=== PATIENT | female | born 1970 | race Caucasian/White ===

== ENCOUNTER → 2019-05-08 14:54 | Outpatient (BNVA) | payer OTHER, MEDICAID, SELFPAY | PROVIDERS: Family Provider Nurse Practitioner Family; PCP Nurse Practitioner Family; Visit Provider Nurse Practitioner Family | DX: I10 Essential (primary) hypertension (principal); Z96.652 Presence of left artificial knee joint; M19.90 Unspecified osteoarthritis, unspecified site; M48.00 Spinal stenosis, site unspecified | CPT/HCPCS: 80053; 80061; 85025 ==

== ENCOUNTER 2019-05-11 06:00 | Outpatient (RCR) | payer OTHER, MEDICAID, SELFPAY | END 2019-05-26 23:59 | disposition home or self-care (01) | LOC: APT 06:00 | PROVIDERS: Family Provider Nurse Practitioner Family; PCP Nurse Practitioner Family; Referring Provider Specialist; Visit Provider Specialist | DX: Z47.1 Aftercare following joint replacement surgery (principal); Z96.652 Presence of left artificial knee joint | CPT/HCPCS: 97110; 97163 ==

== ENCOUNTER 2019-05-27 06:00 | Outpatient (RCR) | payer OTHER, MEDICAID, SELFPAY | END 2019-06-24 23:59 | disposition home or self-care (01) | LOC: APT 06:00 | PROVIDERS: Family Provider Nurse Practitioner Family; PCP Nurse Practitioner Family; Referring Provider Specialist; Visit Provider Specialist | DX: Z47.1 Aftercare following joint replacement surgery (principal); Z96.652 Presence of left artificial knee joint | CPT/HCPCS: 97110 ==

== ENCOUNTER → 2019-06-28 10:46 | Outpatient (BNVA) | payer OTHER, MEDICAID, SELFPAY | PROVIDERS: Family Provider Nurse Practitioner Family; PCP Nurse Practitioner Family; Visit Provider Specialist | DX: M25.562 Pain in left knee (principal); Z96.652 Presence of left artificial knee joint | CPT/HCPCS: 73562 ==

== ENCOUNTER 2019-07-04 06:00 | Outpatient (RCR) | payer OTHER, MEDICAID, SELFPAY | END 2019-07-25 23:59 | disposition home or self-care (01) | LOC: APT 06:00 | PROVIDERS: Family Provider Nurse Practitioner Family; PCP Nurse Practitioner Family; Referring Provider Specialist; Visit Provider Specialist | DX: Z47.1 Aftercare following joint replacement surgery (principal); Z96.652 Presence of left artificial knee joint | CPT/HCPCS: 97110; 97163; 97530 ==

== ENCOUNTER → 2019-07-19 13:42 | Outpatient (BNVA) | payer OTHER, MEDICAID, SELFPAY | PROVIDERS: Family Provider Nurse Practitioner Family; PCP Nurse Practitioner Family; Visit Provider Nurse Practitioner Family | DX: M25.511 Pain in right shoulder (principal) | CPT/HCPCS: 73030 ==

== ENCOUNTER 2019-07-26 06:00 | Outpatient (RCR) | payer OTHER, MEDICAID, SELFPAY | END 2019-08-24 23:59 | disposition home or self-care (01) | LOC: APT 06:00 | PROVIDERS: Family Provider Nurse Practitioner Family; PCP Nurse Practitioner Family; Referring Provider Specialist; Visit Provider Specialist | DX: Z47.1 Aftercare following joint replacement surgery (principal); Z96.652 Presence of left artificial knee joint | CPT/HCPCS: 97110 ==

== ENCOUNTER → 2019-08-23 11:46 | Outpatient (BNVA) | payer OTHER, MEDICAID, SELFPAY | PROVIDERS: Family Provider Nurse Practitioner Family; PCP Nurse Practitioner Family; Visit Provider Nurse Practitioner | DX: R05 Cough (principal) | CPT/HCPCS: 71046 ==

== ENCOUNTER 2019-08-25 13:44 | Inpatient (IN) | payer OTHER, MEDICAID, SELFPAY ==
[2019-08-25] VITALS (13 sets, daily range): BP systolic 119–151; BP diastolic 78–107; PULSE 80–108; RESP 16–25; TEMP 36.6; O2SAT 86–96; BMI 40.1
--- NOTE | 2019-08-25 14:04 | XR_ITS ---
WS: [id number] PORTABLE CHEST HISTORY: sob COMPARISON: 08/23/2019 Lungs are clear and well expanded. No pleural effusion or pneumothorax. Cardiac size: Normal. Mediastinum/Aorta: Normal mediastinum. No osseous abnormality seen. XR/XR chest 1V portable [id number] IMPRESSION: Unremarkable portable chest.
--- NOTE | 2019-08-25 14:15 | ED_ITS ---
HPI - SOB/Dyspnea General: Chief Complaint: Shortness of Breath/Dyspnea Stated Complaint: SOB, cough Time Seen by Provider: 08/25/19 14:04 Source: patient Mode of arrival: ambulatory Limitations: no limitations History of Present Illness: HPI Narrative: 49-year-old female who has a history of asthma states she has had a productive cough along with shortness of breath lasting a month. She denies any fevers. She has seen her PCP and has been prescribed albuterol with no help. She has not been on any steroids or antibiotics. She denies any worsening or improving factors. MD elicited complaint: shortness of breath and cough Pertinent past history: asthma Onset (ago): week(s) Severity: moderate Exacerbating factors: nothing Relieving factors: nothing Associated symptoms: Deny abdominal pain, chest pain, fever(s), nausea or vomiting Review of Systems Const: Denies: fever, chills, body aches or change in appetite Eyes: Denies: blurry vision or eye discomfort ENMT: Denies: throat pain or dental pain Card: Denies: chest pain Resp: Reports: shortness of breath, productive cough and wheezing GI: Denies: abdominal pain, nausea, vomiting or diarrhea : Denies: painful urination Musc: Denies: neck pain or back pain Skin/Breast: Denies: rash Neuro: Denies: headache Psych: Denies: depression Keaton/Lymph: Denies: easy bruising All/Imm: Denies: hives PFS ED PFSH: Medical History Anxiety and depression Asthma Dyslipidemia Excessive bleeding in premenopausal period GERD (gastroesophageal reflux disease) Hiatal hernia Hypertension Irritable bowel syndrome (IBS) Mixed stress and urge urinary incontinence Osteoarthritis (arthritis due to wear and tear of joints) Perimenopausal menorrhagia PTSD (post-traumatic stress disorder) Seasonal allergies Spinal stenosis Tachyarrhythmia Surgical History H/O laparoscopy (~2018) incarcerated -- [facility] History of carpal tunnel release right History of delivery x 4--1990,1996,2000,2006 History of cholecystectomy (~2015) History of dilation and curettage (~1999) History of thyroidectomy (~2009) Hemithyroidectomy--- has never been able to tolerate medication Hx of appendectomy (~1992) Hx of arthroscopic knee surgery 3 surgeries S/P ACL reconstruction (~2003) right Status post laparoscopic hernia repair (~2012) hiatal Family History Mother Hypertension Stroke Diabetes Sister Hypertension Grandmother Hypertension Cancer Paternal --Bladder, liver and brain Ovarian cancer Maternal Brother Cancer Brain tumor Diabetes Social History Smoking and tobacco status: former smoker Quit status (tobacco): has quit using tobacco Former quit date comment: Quit at age 31 Second hand smoke exposure: No Smoking risk assessment/counseling performed?: No Alcohol intake: never Desire information about alcohol rehabilitation?: No Counseling given: No Desire information about substance/drug rehabilitation?: No Counseling given: No Lives independently: No Marital status: Legally service: No History of recent travel: No Current gender identity: Female Additional social history: Well balanced diet Physical Exam Const: COMMON NORMALS: no apparent distress, oriented x3 and healthy appearing HENMT: COMMON NORMALS: normocephalic and head/scalp atraumatic HEAD & SCALP: normocephalic and atraumatic Eye: COMMON NORMALS: PERRL and EOMs intact bilaterally PUPIL: Yes PERRL Neck/C-Spine: COMMON NORMALS: full ROM and supple Chest: COMMONS NORMALS: inspection of chest normal and palpation of chest normal Resp: COMMON NORMALS: normal respiratory effort, no retractions and no use of accessory muscles AUSCULTATION: wheezes Cardio: COMMON NORMALS: regular rate, regular rhythm and no murmurs RATE: regular rate RHYTHM: regular rhythm GI: COMMON NORMALS: normal to inspection, nondistended, normoactive bowel sounds, soft to palpation, non-tender and no masses PALPATION: Yes soft Extremity: COMMON NORMALS: normal to inspection and full ROM Neuro: COMMON NORMALS: oriented x3, moves all extremities and no focal motor deficits Psych: COMMON NORMALS: mental status grossly normal, thought process normal and cooperative THOUGHT PROCESS: normal thought process Skin: COMMON NORMALS: no rashes or lesions noted and no wounds GENERAL SKIN EXAM: no rashes or lesions noted Course Vital Signs: Vital signs: Vital Signs Temperature 97.9 F 08/25/19 13:49 Pulse Rate 97 08/25/19 16:28 Respiratory Rate 18 08/25/19 16:28 Blood Pressure 139/79 08/25/19 16:17 Pulse Oximetry 92 08/25/19 16:49 MDM - SOB/Dyspnea MDM Narrative: Medical decision making narrative: Patient presents with asthma exacerbation along with cough and likely bronchitis. Patient given multiple breathing treatments here and steroids. Had patient ambulate on a pulse ox and she desaturated to 85% after her breathing treatments. Patient is not on oxygen at home and I spoke to hospitalist and will admit as she had that desaturation. Patient is required oxygen here. Patient's d-dimer is negative and no signs of pulmonary embolism. Lab Data: Labs: Lab Results 08/25/19 08/25/19 08/25/19 Range/Units 14:20 14:20 14:20 WBC 9.1 (4.0-10.0) 10^3/ uL RBC 4.46 (4.1-5.3) 10^6/u L Hgb 13.5 (11.5-15.3) g/dL Hct 41.4 (37.0-47.0) % MCV 92.8 (81-99) fL MCH 30.3 (28.0-34.0) pg MCHC 32.6 (30.0-36.0) g/dL RDW 13.2 (12.1-15.1) % Plt Count 279 (130-400) 10^3/c mm MPV 11.6 H (7.4-10.4) fL Neut % (Auto) 70.0 % Lymph % (Auto) 15.1 % [place] % (Auto) 5.6 % Eos % (Auto) 8.2 % Baso % (Auto) 0.4 % Neut # (Auto) 6.3 (1.8-7.7) 10^3/u L Lymph # (Auto) 1.4 (0.8-4.8) 10^3/u L [place] # (Auto) 0.5 (0.2-0.9) 10^3/u L Eos # (Auto) 0.7 (0.0-0.8) 10^3/u L Baso # (Auto) 0.0 (0.0-0.1) 10^3/u L Nucleated RBC % (a uto) 0 % Nucleated RBCs # 0.0 /100WBC PT 13.20 (10.5-13.3) SECO NDS INR 0.97 (0.8-1.2) D-Dimer 0.54 (0-0.59) ug/mIFE U Specimen Type Sample Site ABG pH (7.35-7.45) ABG pCO2 (35-45) mmHg ABG pO2 (80.0-100.0) mmH g ABG HCO3 (22-26) mmol/L ABG Base Excess (-2.0-2.0) mmol/ L Raji Test Hematocrit (37-47) % O2 Delivery Device O2 Liters/Min % FiO2 % Cashier Payments Received ID Sodium 139 (136-145) mmol/L Potassium 4.1 (3.5-5.1) mmol/L Chloride 100 (98-107) mmol/L Carbon Dioxide 26 (22-29) mmol/L Anion Gap 17.1 (5-19) BUN 14 (6-20) mg/dL Creatinine 0.9 (0.5-0.9) mg/dL GFR Calculation 66.8 L (90-130) mL/min Glucose 107 (65-115) mg/dL Calculated Osmolal ity 285 (285-295) mOsm/k g Calcium 9.3 (8.5-10.5) mg/dL Total Bilirubin 0.3 (0.15-1.2) mg/dL AST 17 (0-32) U/L ALT 17 (0-33) U/L Alkaline Phosphata se 92 (35-105) IU/L Troponin T Baselin e (0-10) ng/mL NT-Pro-B Natriuret Pep 34 (0-125) pg/mL Total Protein 7.2 (6.6-8.7) g/dL Albumin 4.4 (3.5-5.2) g/dL Globulin 2.8 (1.3-4.6) g/dL 08/25/19 08/25/19 Range/Units 14:20 16:51 WBC (4.0-10.0) 10^3/ uL RBC (4.1-5.3) 10^6/u L Hgb (11.5-15.3) g/dL Hct (37.0-47.0) % MCV (81-99) fL MCH (28.0-34.0) pg MCHC (30.0-36.0) g/dL RDW (12.1-15.1) % Plt Count (130-400) 10^3/c mm MPV (7.4-10.4) fL Neut % (Auto) % Lymph % (Auto) % [place] % (Auto) % Eos % (Auto) % Baso % (Auto) % Neut # (Auto) (1.8-7.7) 10^3/u L Lymph # (Auto) (0.8-4.8) 10^3/u L [place] # (Auto) (0.2-0.9) 10^3/u L Eos # (Auto) (0.0-0.8) 10^3/u L Baso # (Auto) (0.0-0.1) 10^3/u L Nucleated RBC % (a uto) % Nucleated RBCs # /100WBC PT (10.5-13.3) SECO NDS INR (0.8-1.2) D-Dimer (0-0.59) ug/mIFE U Specimen Type Arterial Sample Site Radial, right ABG pH 7.42 (7.35-7.45) ABG pCO2 37.8 (35-45) mmHg ABG pO2 64.6 L (80.0-100.0) mmH g ABG HCO3 24.7 (22-26) mmol/L ABG Base Excess 0.4 (-2.0-2.0) mmol/ L Raji Test Pos Hematocrit 43.6 (37-47) % O2 Delivery Device Nc O2 Liters/Min 2.0 % FiO2 28.0 % Cashier Payments Received ID ed Sodium (136-145) mmol/L Potassium (3.5-5.1) mmol/L Chloride (98-107) mmol/L Carbon Dioxide (22-29) mmol/L Anion Gap (5-19) BUN (6-20) mg/dL Creatinine (0.5-0.9) mg/dL GFR Calculation (90-130) mL/min Glucose (65-115) mg/dL Calculated Osmolal ity (285-295) mOsm/k g Calcium (8.5-10.5) mg/dL Total Bilirubin (0.15-1.2) mg/dL AST (0-32) U/L ALT (0-33) U/L Alkaline Phosphata se (35-105) IU/L Troponin T Baselin e 7 (0-10) ng/mL NT-Pro-B Natriuret Pep (0-125) pg/mL Total Protein (6.6-8.7) g/dL Albumin (3.5-5.2) g/dL Globulin (1.3-4.6) g/dL Imaging Data^: CXR: Radiologist's impression: [address] [place] [address] XRay Report Signed Patient: Ani Bermudez Unit #: [id number] : 1970 Age/Sex: 49 / F ADM Date: 08/25/19 Loc: ER Room/Bed: Attending Dr: Ordering Provider/Ordering MD: Dana Flores MD Date of Service: 08/25/19 Procedure(s): XR chest 1V portable [id number] Accession Number(s): [id number] Report Number: [id number] WS: [id number] PORTABLE CHEST HISTORY: sob COMPARISON: 08/23/2019 Lungs are clear and well expanded. No pleural effusion or pneumothorax. Cardiac size: Normal. Mediastinum/Aorta: Normal mediastinum. No osseous abnormality seen. XR/XR chest 1V portable [id number] IMPRESSION: Unremarkable portable chest. EKG Data^: EKG 1: Attestation: I personally reviewed and interpreted this EKG as follows: EKG Interpretation Date: 08/25/19 EKG interpretation time: 15:09 Interpretation: nsr hr [address] or t wave abnormalities qrs 81 qtc 353 Discharge Plan Discharge Patient Disposition: Admitted As Inpatient Clinical Impression: Bronchitis Asthma with exacerbation Qualifiers: Asthma severity: moderate Condition: Stable Referrals: Ruthann Clemente FNP-C [Primary Care Provider] - Tatiana Vidal MD [Physician] - 1-3 days Discharge Diet: Advance as tolerated Discharge Activity: Resume usual activity Patient Instructions: Acute Bronchitis (ED) Coding Level of Care Code 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
[2019-08-25 14:40] LABS: Basophils % 0.4 %; Eosinophils # 0.7 10^3/uL (0.0-0.8); Eosinophils % 8.2 %; Hematocrit 41.4 % (37.0-47.0); Hemoglobin 13.5 g/dL (11.5-15.3); Lymphocytes # 1.4 10^3/uL (0.8-4.8); Lymphocytes % 15.1 %; Mean Corpuscular HGB Conc 32.6 g/dL (30.0-36.0); Mean Corpuscular Hemoglobin 30.3 pg (28.0-34.0); Mean Corpuscular Volume 92.8 fL (81-99); Mean Platelet Volume 11.6 fL (7.4-10.4); Monocytes # 0.5 10^3/uL (0.2-0.9); Monocytes % 5.6 %; Neutrophils # 6.3 10^3/uL (1.8-7.7); Nucleated Red Blood Cells % 0 %; Platelet Count 279 10^3/cmm (130-400); Red Blood Count 4.46 10^6/uL (4.1-5.3); Red Cell Distribution Width 13.2 % (12.1-15.1); White Blood Count 9.1 10^3/uL (4.0-10.0)
[2019-08-25 14:48] LABS: INR 0.97 (0.8-1.2)
[2019-08-25 14:51] LABS: D Dimer 0.54 ug/mIFEU (0-0.59)
[2019-08-25 15:01] LABS: Troponin(5th) Baseline 7 ng/mL (0-10)
[2019-08-25] MEDS: ipratropium-albuterol 3 mL Neb INHALATION (15:10)
[2019-08-25 15:11] LABS: Alanine Aminotransferase 17 U/L (0-33); Albumin Level 4.4 g/dL (3.5-5.2); Alkaline Phosphatase 92 IU/L (35-105); Anion Gap 17.1 (5-19); Aspartate Amino Transferase 17 U/L (0-32); Blood Urea Nitrogen 14 mg/dL (6-20); Calcium 9.3 mg/dL (8.5-10.5); Carbon Dioxide 26 mmol/L (22-29); Chloride 100 mmol/L (98-107); Globulin 2.8 g/dL (1.3-4.6); Glomerular Filtration Rate 66.8 mL/min (90-130); Glucose 107 mg/dL (65-115); NT Pro B Type Natriuretic Pept 34 pg/mL (0-125); Osmolality Calculated 285 mOsm/kg (285-295); Potassium 4.1 mmol/L (3.5-5.1); Sodium 139 mmol/L (136-145); Total Bilirubin 0.3 mg/dL (0.15-1.2); Total Protein 7.2 g/dL (6.6-8.7)
--- NOTE | 2019-08-25 16:05 | ECG_ITS ---
Measurements Intervals [place] Rate: 90 P: 53 IL: 173 QRS: 43 QRSD: 81 T: 51 QT: 305 QTc: 375 SINUS RHYTHM NONSPECIFIC T-WAVE ABNORMALITY Compared to ECG 12/30/2018 14:15:13 No significant changes Electronically Signed On 08-26-2019 16:23:04 CDT by Hernan Cyr M.D. [id number]
[2019-08-25 17:02] LABS: ABG PCO2 37.8 mmHg (35-45); ABG PH Result 7.42 (7.35-7.45); Arterial Blood Gas Hematocrit 43.6 % (37-47); Base Excess ABG 0.4 mmol/L (-2.0-2.0); Blood Gas Allen Test Pos; Blood Gas Sample Site Radial, right; Blood Gas Sample Type Arterial; HCO3 ABG 24.7 mmol/L (22-26); Oxygen Device NC; PO2 ABG 64.6 mmHg (80.0-100.0)
[2019-08-25] MEDS: cefTRIAXone 1,000 MG in sodium chloride 0.9% (plus) 50 ML 100 MG IV (17:41)
--- NOTE | 2019-08-25 19:33 | P.HP_ITS ---
Providers/Chief Complaint Primary Care Provider: TOBI Henderson Chief Complaint: cp, sob History of Present Illness Ani Bermudez is a 49 year old female who carries diagnoses of asthma, morbid obesity came in with chief complaint of shortness of breath. Patient is stating that her symptoms started in starting of July with seasonal allergies for which she was treated with albuterol by her PCP, she has tried albuterol multiple times but her symptoms were not improving, on her second visit to PCP she was given inhaled steroids. Patient's symptoms are not improving they are getting worse mostly at night, she got diagnosed with asthma when she had hiatal hernia for which she underwent surgery. She thinks her GERD is well controlled. She has tried to limit herself in her house because of seasonal allergies, she has not been exposed to sick contacts, she lives with her son, son has not traveled outside. Patient is denying fever, chills, rigors chest pain, nausea, vomiting, dysuria wheezing or stridor. She has been having dry cough and get bronchitis almost every year. Diagnostics in ER revealed normal hemodynamics, she is afebrile, no leukocytosis or leukopenia, blood gas shows normal pH, patient is not in any active respiratory distress On ambulation she was desaturating, currently doing well on 2 L nasal cannula D-dimer not high for her age Chest x-ray is normal without any acute pathology EKG unremarkable Review of Systems Const: Reports: body aches and fatigue; Denies: fever or chills Eyes: Denies: change in vision ENMT: Reports: throat pain Card: Reports: shortness of breath when lying down; Denies: chest pain or palpitations Resp: Reports: shortness of breath and non-productive cough; Denies: wheezing or stridor GI: Denies: abdominal pain : Denies: flank pain Musc: Denies: neck pain Skin/Breast: Denies: rash Neuro: Denies: headache Psych: Reports: anxiety Endo: Denies: excessive urination Keaton/Lymph: Denies: easy bruising All/Imm: Denies: hives Medications/Allergies Home Medications Medication Instructions Recorded Confirmed Last Taken Type Knee immobilizer #1 ea 06/28/19 08/16/19 Unknown Rx amlodipine 10 mg tablet 10 mg PO DAILY 30 Days #30 tab 07/05/19 08/16/19 Unknown Rx citalopram 20 mg tablet 20 mg PO DAILY 30 Days #30 tab 07/05/19 08/16/19 Unknown Rx celecoxib 200 mg capsule 200 mg PO BID 30 Days #60 cap 07/18/19 08/16/19 Unknown Rx pravastatin 20 mg tablet 20 mg PO DAILY 30 Days #30 tab 07/18/19 08/16/19 Unknown Rx albuterol sulfate 90 mcg/actuation 2 puff INHALATION Q6H PRN #8.5 gm 08/14/19 0 08/16/19 Unknown Rx aerosol inhaler promethazine-DM 6.25 mg-15 mg/5 mL 5 ml PO Q6H #120 ml 08/14/19 08/16/19 Unknown Rx oral syrup albuterol sulfate 2.5 mg INHALATION Q4H #300 ml 08/16/19 08/16/19 Unknown Rx budesonide 0.5 mg/2 mL suspension 0.5 mg INHALATION BID #60 ml 08/16/19 08/16/19 Unknown Rx for nebulization guaifenesin 100 mg/5 mL oral liquid 400 mg PO Q6H 30 Days #2400 ml 08/23/19 08/23/19 Unknown Rx doxycycline hyclate 100 mg PO BID 10 Days #20 cap 08/25/19 Unknown Rx prednisone 50 mg PO DAILY #5 tab 08/25/19 Unknown Rx Allergies Allergy/AdvReac Type Severity Reaction Status Date / Time levothyroxine sodium Allergy Unknown unknown Verified 08/23/19 11:42 morphine Allergy Unknown itching Verified 08/23/19 11:42 ranitidine Allergy Unknown unknown Verified 08/23/19 11:42 thyroid, pork Allergy Unknown unknown Verified 08/23/19 11:42 [From [place] Thyroid] tramadol Allergy Unknown unknown Verified 08/23/19 11:42 PFSH Acute PFSH: Medical History Anxiety and depression Asthma Dyslipidemia Excessive bleeding in premenopausal period GERD (gastroesophageal reflux disease) Hiatal hernia Hypertension Irritable bowel syndrome (IBS) Mixed stress and urge urinary incontinence Osteoarthritis (arthritis due to wear and tear of joints) Perimenopausal menorrhagia PTSD (post-traumatic stress disorder) Seasonal allergies Spinal stenosis Tachyarrhythmia Surgical History H/O laparoscopy (~2017) incarcerated -- [facility] History of carpal tunnel release right History of delivery x 4--1990,1996,2000,2006 History of cholecystectomy (~2015) History of dilation and curettage (~1999) History of thyroidectomy (~2009) Hemithyroidectomy--- has never been able to tolerate medication Hx of appendectomy (~1992) Hx of arthroscopic knee surgery 3 surgeries S/P ACL reconstruction (~2003) right Status post laparoscopic hernia repair (~2012) hiatal Family History Mother Hypertension Stroke Diabetes Sister Hypertension Grandmother Hypertension Cancer Paternal --Bladder, liver and brain Ovarian cancer Maternal Brother Cancer Brain tumor Diabetes Social History Smoking and tobacco status: former smoker Quit status (tobacco): has quit using tobacco Former quit date comment: Quit at age 31 Second hand smoke exposure: No Smoking risk assessment/counseling performed?: No Alcohol intake: never Desire information about alcohol rehabilitation?: No Counseling given: No Desire information about substance/drug rehabilitation?: No Counseling given: No Lives independently: No Marital status: Legally service: No History of recent travel: No Current gender identity: Female Additional social history: Well balanced diet Vitals/I&O/Wt Last Vital Signs Temp 97.9 F 08/25/19 13:49 Pulse 97 08/25/19 16:28 Resp 18 08/25/19 16:28 BP 139/79 08/25/19 16:17 Pulse Ox 92 08/25/19 16:49 Weight last 48 hrs Weight 112.945 kg Physical Exam Narrative: EXAM NARRATIVE: Head to toe examination EOMI, PERRLA No JVD No active respiratory distress No signs of active fluid overload Supple neck Appropriate mood and affect No active wheezing or stridor, she gets bouts of cough when taking deep breaths, mild expiratory wheezing, bilateral decreased breath sounds without adventitious sounds, S1, S2 no tachycardia noted Abdomen soft, distended, obese obesity, bowel sounds present, nontender Appropriate mood and affect GCS 15 alert oriented x3 Negatives: Skin does not show any sign of ischemia gangrene or ulcer No active respiratory distress No cyanosis of lips or digits No signs of heart failure No clubbing Data : 08/25/19 14:20 08/25/19 14:20 A&P Assessment and plan (1) Bronchitis: Status: Acute (2) Asthma with exacerbation: Status: Acute Qualifiers: Asthma severity: moderate (3) Hypertension: Status: Chronic Qualifiers: Hypertension type: essential hypertension Qualified Code(s): I10 - Essential (primary) hypertension (4) Anxiety and depression: Status: Chronic Additional A&P Information Acute hypoxic respiratory failure due to severe persistent asthma symptoms She is suffering from daily symptoms with nocturnal symptoms almost every day for last 4 weeks I would use short acting beta agonist along IV systemic steroids and short acting muscarinic agonist, montelukast Azithromycin for anti-inflammatory effect and subacute bronchitis Sputum sample, check eosinophils and IgE to decide about biological agent patient is endorsing seasonal allergies, considering no active respiratory distress and compensated blood gas with upper low normal PCO2 I will admit her to medical floor, no need of magnesium sulfate at this point, At the time of discharge she might need step up therapy for severe persistent asthma exacerbation Rule out COVID Isolation contact and droplet Patient is afebrile, no leukocytosis or leukopenia, will check LDH and ferritin level, d-dimer not high for her age, PE less likely to be the cause of hypoxia, no signs of heart failure, GERD Nocturnal coughing I would start Protonix 40 mg daily, she carries history of hiatal hernia status post surgery Hypertension: Continue amlodipine 10 mg daily Morbid obesity: She will need outpatient sleep study Regular diet Full code DVT prophylaxis: Lovenox Attestations Medical Necessity Statement*: Anticipating her stay to cross more than 2 midnights needs active management for asthma exacerbation currently suffering from persistent asthma symptoms Time Spent in Patient Care: 40 Coding Level of Care Code 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
--- NOTE | 2019-08-25 20:05 | ECG_ITS ---
Measurements Intervals [place] Rate: 96 P: 56 [place]: 212 QRS: 50 QRSD: 88 T: 58 QT: 371 QTc: 469 SINUS RHYTHM WITH FIRST DEGREE AV BLOCK NONSPECIFIC T-WAVE ABNORMALITY Compared to ECG 12/30/2018 14:15:13 First degree AV block now present T-wave abnormality still present Electronically Signed On 08-26-2019 16:23:41 CDT by Hernan Cyr M.D. [id number]
[2019-08-25] MEDS: azithromycin 500 MG in sodium chloride 0.9% 250 ML 250 MG IV (20:22)
[2019-08-25] MEDS: enoxaparin 40 mg/0.4 mL Syringe SUBCUT (22:13)
[2019-08-25] MEDS: montelukast sodium 10 mg Tablet PO (22:13)
--- NOTE | 2019-08-25 22:34 | PC.NURSE ---
Nurse entered room and told Pt blood glucose was going to be taken. Pt stated she was not diabetic and did not need to be checked or to get insulin. Nurse verified refusal by asking if pt was refusing. Pt stated she would let us check her sugar , but until we can prove she is diabetic, insulin is a bad idea
[2019-08-25] MEDS: albuterol 8 gm MDI 2 PUFF INHALATION (23:29)
[2019-08-26] VITALS (24 sets, daily range): BP systolic 112–154; BP diastolic 61–95; PULSE 72–95; RESP 13–21; TEMP 36.6; O2SAT 92–98
[2019-08-26] MEDS: HYDROmorphone 1 mg/mL INJ 1 mL IVP (01:48)
[2019-08-26] MEDS: albuterol 8 gm MDI 2 PUFF INHALATION ×6 (03:40→23:03)
[2019-08-26 04:39] LABS: Basophils % 0.2 %; Hematocrit 39.8 % (37.0-47.0); Hemoglobin 13.1 g/dL (11.5-15.3); Lymphocytes # 0.9 10^3/uL (0.8-4.8); Lymphocytes % 7.3 %; Mean Corpuscular HGB Conc 32.9 g/dL (30.0-36.0); Mean Corpuscular Hemoglobin 30.2 pg (28.0-34.0); Mean Corpuscular Volume 91.7 fL (81-99); Mean Platelet Volume 11.7 fL (7.4-10.4); Monocytes # 0.2 10^3/uL (0.2-0.9); Monocytes % 1.6 %; Neutrophils # 10.7 10^3/uL (1.8-7.7); Neutrophils % 89.9 %; Nucleated Red Blood Cells % 0 %; Platelet Count 274 10^3/cmm (130-400); Red Blood Count 4.34 10^6/uL (4.1-5.3); Red Cell Distribution Width 13.1 % (12.1-15.1); White Blood Count 11.9 10^3/uL (4.0-10.0)
[2019-08-26 04:59] LABS: Anion Gap 18.4 (5-19); Blood Urea Nitrogen 13 mg/dL (6-20); Calcium 9.6 mg/dL (8.5-10.5); Carbon Dioxide 23 mmol/L (22-29); Chloride 101 mmol/L (98-107); Glomerular Filtration Rate 89.3 mL/min (90-130); Glucose 154 mg/dL (65-115); Osmolality Calculated 285 mOsm/kg (285-295); Potassium 4.4 mmol/L (3.5-5.1); Sodium 138 mmol/L (136-145)
[2019-08-26 07:33] LABS: Lactate Dehydrogenase 267 U/L (135-214)
[2019-08-26 07:47] LABS: Glucose Point of Care 143 mg/dL (70-110)
[2019-08-26 07:58] LABS: Ferritin 67 ng/mL (15-150)
[2019-08-26] MEDS: azithromycin 250 mg Tablet 500 MG PO (08:30)
[2019-08-26] MEDS: atorvastatin 40 mg Tablet 20 MG PO (08:30)
[2019-08-26] MEDS: pantoprazole DR 40 mg Tablet PO (08:30)
[2019-08-26 11:11] LABS: Glucose Point of Care 161 mg/dL (70-110)
[2019-08-26 13:49] LABS: Glucose Point of Care 172 mg/dL (70-110)
[2019-08-26 16:36] LABS: Glucose Point of Care 106 mg/dL (70-110)
--- NOTE | 2019-08-26 17:30 | PC.NURSE ---
This nurse informed by other staff that pt thinks her flushing, feeling hot and not very well must be caused by the insulin she has received. Spoke with pt at length about her health, current and chronic issues, steroids, insulin. Pt stated she did not know infections and steroid use could cause her blood sugar to increase, she was wondering why she needed the insulin. She stated she would continue taking the insulin now.
[2019-08-26] MEDS: montelukast sodium 10 mg Tablet PO (17:42)
[2019-08-26 19:42] LABS: Coronavirus Lab Test PTC SEE COMMENTS
--- NOTE | 2019-08-26 20:46 | P.PN_ITS ---
Subjective Subjective: Interval history: She is feeling about the same, states she is feeling very tired. States that she has not been able to sleep for about a couple weeks even at home. Here has been even more restless as she has not been able to wear her CPAP so far in the hospital. Discussed with her that we will resume this tonight after testing for COVID-19 as long as it was negative, and she was happy to hear that. Vitals/I&O/Wt Last Vital Signs Temp 97.8 F 08/26/19 16:00 Pulse 77 08/26/19 19:36 Resp 16 08/26/19 19:31 BP 127/72 08/26/19 18:00 Pulse Ox 92 08/26/19 19:31 08/26/19 08/26/19 08/26/19 06:59 14:59 22:59 Intake Total 472 / 972 600 / 600 300 / 900 Balance 472 / 972 600 / 600 300 / 900 Weight last 48 hrs Weight 112.945 kg Physical Exam Const: COMMON NORMALS: no apparent distress and oriented x3 HENMT: COMMON NORMALS: oropharynx normal Neck/C-Spine: COMMON NORMALS: no JVD Resp: COMMON NORMALS: normal respiratory effort EFFORT & INSPECTION: Yes audible wheezes Cardio: COMMON NORMALS: no JVD, regular rhythm, S1 normal heart sound, S2 normal heart sound and no murmurs RHYTHM: regular rhythm HEART SOUNDS: S1 normal and S2 normal GI: COMMON NORMALS: normal to inspection, nondistended, normoactive bowel s ounds, soft to palpation and non-tender PALPATION: Yes soft Extremity: COMMON NORMALS: no joint enlargement and no pedal edema Neuro: COMMON NORMALS: oriented x3 and moves all extremities Skin: COMMON NORMALS: no rashes or lesions noted GENERAL SKIN EXAM: no r ashes or lesions noted Data : 08/26/19 04:28 08/26/19 04:28 A&P Assessment and plan (1) Bronchitis: Superimposed on asthma. Wheezing. This appears has been developing for a while. At home did not respond to nebulizer treatments. I see she has also been prescribed doxycycline and prednisone. For now continue systemic steroid, breathing treatments, oxygen support. Azithromycin. COVID-19 testing is negative. She may resume her nightly CPAP for BRIAN. Status: Acute (2) Asthma with exacerbation: She is not able to give me an idea of how many exacerbations she gets per year. She states she at baseline gets very winded with house chores. She avoids stairs. Does have documented seasonal allergies, and allergenic component to asthma is considered. She also has documented GERD with hiatal hernia, and with worsening nocturnal cough acid reflux causing asthma exacerbation and bronchitis certainly is a possibility as well. Continue PPI. With her difficulties with control would benefit from assessment by pulmonology after discharge. Status: Acute Qualifiers: Asthma severity: moderate (3) Hypertension: Status: Chronic Qualifiers: Hypertension type: essential hypertension Qualified Code(s): I10 - Essential (primary) hypertension (4) Anxiety and depression: Status: Chronic Additional A&P Information GERD: PPI Hiatal hernia status post surgery Hypertension: Continue amlodipine 10 mg daily. BP at goal. BRIAN: Continue CPAP. Morbid obesity: On outpatient basis may benefit from discussions regarding weight loss options. Attestations Medical Necessity Statement*: Continue admission for assessment of management of bronchitis not responsive to outpatient management superimposed on asthma. 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
[2019-08-26 21:38] LABS: Glucose Point of Care 141 mg/dL (70-110)
[2019-08-26] MEDS: enoxaparin 40 mg/0.4 mL Syringe SUBCUT (22:25)
[2019-08-27] VITALS (16 sets, daily range): BP systolic 131–155; BP diastolic 73–90; PULSE 69–93; RESP 16–21; TEMP 36.4–36.8; O2SAT 93–97
[2019-08-27] MEDS: albuterol 8 gm MDI 2 PUFF INHALATION ×6 (03:29→23:58)
[2019-08-27 05:41] LABS: Basophils % 0.1 %; Eosinophils % 0.1 %; Hematocrit 38.5 % (37.0-47.0); Hemoglobin 12.5 g/dL (11.5-15.3); Lymphocytes # 1.2 10^3/uL (0.8-4.8); Lymphocytes % 8.6 %; Mean Corpuscular HGB Conc 32.5 g/dL (30.0-36.0); Mean Corpuscular Hemoglobin 30.8 pg (28.0-34.0); Mean Corpuscular Volume 94.8 fL (81-99); Mean Platelet Volume 11.6 fL (7.4-10.4); Monocytes # 0.6 10^3/uL (0.2-0.9); Monocytes % 4.1 %; Neutrophils # 11.6 10^3/uL (1.8-7.7); Nucleated Red Blood Cells % 0 %; Platelet Count 264 10^3/cmm (130-400); Red Blood Count 4.06 10^6/uL (4.1-5.3); Red Cell Distribution Width 13.4 % (12.1-15.1); White Blood Count 13.5 10^3/uL (4.0-10.0)
[2019-08-27 05:58] LABS: Anion Gap 17.1 (5-19); Blood Urea Nitrogen 17 mg/dL (6-20); Calcium 9.1 mg/dL (8.5-10.5); Carbon Dioxide 26 mmol/L (22-29); Chloride 99 mmol/L (98-107); Glomerular Filtration Rate 66.8 mL/min (90-130); Glucose 136 mg/dL (65-115); Osmolality Calculated 284 mOsm/kg (285-295); Potassium 4.1 mmol/L (3.5-5.1); Sodium 138 mmol/L (136-145)
[2019-08-27 06:30] LABS: Glucose Point of Care 144 mg/dL (70-110)
[2019-08-27] MEDS: atorvastatin 40 mg Tablet 20 MG PO (08:21)
[2019-08-27] MEDS: azithromycin 250 mg Tablet 500 MG PO (08:21)
[2019-08-27] MEDS: pantoprazole DR 40 mg Tablet PO (08:22)
[2019-08-27 10:54] LABS: Glucose Point of Care 130 mg/dL (70-110)
[2019-08-27] MEDS: benzonatate 100 mg Capsule PO ×2 (13:50→21:35)
[2019-08-27 16:31] LABS: Glucose Point of Care 124 mg/dL (70-110)
[2019-08-27] MEDS: montelukast sodium 10 mg Tablet PO (17:21)
[2019-08-27] MEDS: guaiFENesin 600 mg Tablet 1200 MG PO (17:21)
[2019-08-27 21:03] LABS: Glucose Point of Care 202 mg/dL (70-110)
--- NOTE | 2019-08-27 21:06 | P.PN_ITS ---
Subjective Subjective: Interval history: Has not been able to sleep well. Feels like she has congestion in her chest which she has difficult time bringing up. Vitals/I&O/Wt Last Vital Signs Temp 97.7 F 08/27/19 20:00 Pulse 83 08/27/19 20:20 Resp 21 H 08/27/19 20:16 BP 155/90 08/27/19 20:00 Pulse Ox 96 08/27/19 20:20 08/27/19 08/27/19 08/27/19 06:59 14:59 22:59 Intake Total 600 / 600 300 / 900 Balance 600 / 600 300 / 900 Physical Exam Const: COMMON NORMALS: no apparent distress and oriented x3 OTHER: Asleep, wakes up easily. HENMT: COMMON NORMALS: oropharynx normal Neck/C-Spine: COMMON NORMALS: no JVD Resp: COMMON NORMALS: normal respiratory effort EFFORT & INSPECTION: Yes audible wheezes Cardio: COMMON NORMALS: no JVD, regular rhythm, S1 normal heart sound, S2 normal heart sound and no murmurs RHYTHM: regular rhythm HEART SOUNDS: S1 normal and S2 normal GI: COMMON NORMALS: normal to inspection, nondistended, normoactive bowel sounds, soft to palpation and non-tender PALPATION: Yes soft Extremity: COMMON NORMALS: no joint enlargement and no pedal edema Neuro: COMMON NORMALS: oriented x3 and moves all extremities Skin: COMMON NORMALS: no rashes or lesions noted GENERAL SKIN EXAM: no rashes or lesions noted Data : 08/27/19 05:20 08/27/19 05:20 Micro: Microbiology 08/27/19 17:05 Gram Stain - Final Sputum - Expectorated Sputum A&P Assessment and plan (1) Bronchitis: Persistent hypoxia, subjective dyspnea, chest congestion. With persistent wheezing. Increase steroid dose. Continue antibiotic. As she has difficult time expectorating we will add Mucinex, flutter. Modify her to return. Superimposed on asthma. Wheezing. This appears has been developing for a while. At home did not respond to nebulizer treatments. I see she has also been prescribed doxycycline and prednisone. COVID-19 testing is negative. Resumed her nightly CPAP for BRIAN. Not normally on oxygen. If not improving consider pulmonary assessment tomorrow. Status: Acute (2) Asthma with exacerbation: She is not able to give me an idea of how many exacerbations she gets per year. She states she at baseline gets very winded with house chores. She avoids stairs. Does have documented seasonal allergies, and allergenic component to asthma is considered. She also has documented GERD with hiatal hernia, and with worsening nocturnal cough acid reflux causing asthma exacerbation and bronchitis certainly is a possibility as well. Continue PPI. With her difficulties with control would benefit from assessment by pulmonology after discharge. Status: Acute Qualifiers: Asthma severity: moderate (3) Hypertension: Status: Chronic Qualifiers: Hypertension type: essential hypertension Qualified Code(s): I10 - Essential (primary) hypertension (4) Anxiety and depression: Status: Chronic Additional A&P Information GERD: PPI Hiatal hernia status post surgery Hypertension: Continue amlodipine 10 mg daily. BP at goal. BRIAN: Continue CPAP. Morbid obesity: On outpatient basis may benefit from discussions regarding weight loss options. Attestations Medical Necessity Statement*: Continue admission for assessment management of hypoxia, bronchitis, with asthma and underlying GERD. 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
[2019-08-27] MEDS: enoxaparin 40 mg/0.4 mL Syringe SUBCUT (22:58)
[2019-08-28] VITALS (14 sets, daily range): BP systolic 112–158; BP diastolic 72–95; PULSE 68–103; RESP 18–22; TEMP 36.3–36.8; O2SAT 91–95
[2019-08-28] MEDS: albuterol 8 gm MDI 2 PUFF INHALATION ×4 (04:04→16:58)
[2019-08-28 05:53] LABS: Basophils % 0.1 %; Eosinophils % 0.1 %; Hematocrit 40.3 % (37.0-47.0); Hemoglobin 13.4 g/dL (11.5-15.3); Lymphocytes % 7.1 %; Mean Corpuscular HGB Conc 33.3 g/dL (30.0-36.0); Mean Corpuscular Volume 93.3 fL (81-99); Mean Platelet Volume 11.6 fL (7.4-10.4); Monocytes # 0.3 10^3/uL (0.2-0.9); Monocytes % 1.9 %; Neutrophils # 11.9 10^3/uL (1.8-7.7); Neutrophils % 88.2 %; Nucleated Red Blood Cells % 0 %; Platelet Count 290 10^3/cmm (130-400); Red Blood Count 4.32 10^6/uL (4.1-5.3); White Blood Count 13.5 10^3/uL (4.0-10.0)
[2019-08-28 06:05] LABS: Anion Gap 15.2 (5-19); Blood Urea Nitrogen 17 mg/dL (6-20); Calcium 9.3 mg/dL (8.5-10.5); Carbon Dioxide 26 mmol/L (22-29); Chloride 100 mmol/L (98-107); Glomerular Filtration Rate 89.3 mL/min (90-130); Glucose 171 mg/dL (65-115); Osmolality Calculated 284 mOsm/kg (285-295); Potassium 4.2 mmol/L (3.5-5.1); Sodium 137 mmol/L (136-145)
[2019-08-28 06:43] LABS: Glucose Point of Care 150 mg/dL (70-110)
[2019-08-28] MEDS: guaiFENesin 600 mg Tablet 1200 MG PO ×2 (08:04→17:11)
[2019-08-28] MEDS: pantoprazole DR 40 mg Tablet PO (08:04)
[2019-08-28] MEDS: azithromycin 250 mg Tablet 500 MG PO (08:04)
[2019-08-28] MEDS: atorvastatin 40 mg Tablet 20 MG PO (08:04)
[2019-08-28 11:27] LABS: Glucose Point of Care 154 mg/dL (70-110)
[2019-08-28 16:29] LABS: Glucose Point of Care 146 mg/dL (70-110)
[2019-08-28] MEDS: montelukast sodium 10 mg Tablet PO (17:11)
--- NOTE | 2019-08-28 22:00 | P.DS_ITS ---
Discharge Providers Date of Admission: 08/25/19 17:04 Date of Discharge: August 28, 2019 Attending Provider at Admission: Abelardo Ordaz Attending Provider at Discharge: Abelardo Ordaz Primary Care Provider: TOBI Henderson Diagnoses at Discharge Discharge Diagnosis (1) Bronchitis: Status: Acute (2) Asthma with exacerbation: Status: Acute Qualifiers: Asthma severity: moderate (3) Hypertension: Status: Chronic Qualifiers: Hypertension type: essential hypertension Qualified Code(s): I10 - Essential (primary) hypertension (4) Anxiety and depression: Status: Chronic Reason for Visit Reason for Visit: Reason For Visit: cp, rosana Hospital Course Hospital Course: Pleasant 49-year-old lady with history of asthma, GERD, seasonal allergies, former smoker, with BRIAN, morbid obesity, was admitted after presenting with shortness of breath, with cough, progressing dyspnea over the past 10 days, despite use of albuterol, and treatment by PCP with inhaled steroids. Reports cough is worse at night. She is treated with PPI. On presentation d-dimer was assessed was not elevated. Chest x-ray without sign of pneumonia. She was requiring 2 L of oxygen by nasal cannula. She was started on treatment with antibiotic for non-resolving bronchitis, as well as breathing treatments, oxygen support. Montelukast. Systemic steroid was initiated due to persistent hypoxia. Cardiac studies were not suggestive of acute DE. She was assessed for COVID-19, and this was negative. She then was able to resume using her CPAP. Her symptoms gradually improved. She is still having some cough, some degree of dyspnea, although overall is doing much better, I do not hear significant wheezing on exam, and she is weaned off oxygen, not requiring any home oxygen on evaluation. Case was discussed with pulmonology who will be expecting her in clinic for evaluation. On discharge Advair is added to her regimen. She will complete a course of antibiotic with Levaquin, as well as steroid taper. Physical Exam Const: COMMON NORMALS: no apparent distress and oriented x3 OTHER: Asleep, wakes up easily. HENMT: COMMON NORMALS: oropharynx normal Neck/C-Spine: COMMON NORMALS: no JVD Resp: COMMON NORMALS: normal respiratory effort and clear to auscultation bilaterally AUSCULTATION: clear to auscultation bilaterally Cardio: COMMON NORMALS: no JVD, regular rhythm, S1 normal heart sound, S2 normal heart sound and no murmurs RHYTHM: regular rhythm HEART SOUNDS: S1 normal and S2 normal GI: COMMON NORMALS: normal to inspection, nondistended, normoactive bowel sounds, soft to palpation and non-tender PALPATION: Yes soft Extremity: COMMON NORMALS: no joint enlargement and no pedal edema Neuro: COMMON NORMALS: oriented x3 and moves all extremities Skin: COMMON NORMALS: no rashes or lesions noted GENERAL SKIN EXAM: no rashes or lesions noted Discharge Data Data Completed and Pending: Completed Studies During Hospitalization Category Date Time Status XR chest 1[place] [id number] Urgent Exams 08/25/19 14:04 Completed Pending at discharge Category Date Time Status Sputum Culture an d Gram Stain [facility] ne Lab 08/27/19 17:05 Results Labs from last 24 hours 08/28/19 08/28/19 08/28/19 16:23 11:00 06:16 WBC RBC Hgb Hct MCV MCH MCHC RDW Plt Count MPV Neut % (Auto) Lymph % (Auto) [place] % (Auto) Eos % (Auto) Baso % (Auto) Neut # (Auto) Lymph # (Auto) [place] # (Auto) Eos # (Auto) Baso # (Auto) Nucleated RBC % (a uto) Nucleated RBCs # Sodium Potassium Chloride Carbon Dioxide Anion Gap BUN Creatinine GFR Calculation Glucose POC Glucose 146 154 150 Calculated Osmolal ity Calcium 08/28/19 08/28/19 05:35 05:35 WBC 13.5 H RBC 4.32 Hgb 13.4 Hct 40.3 MCV 93.3 MCH 31.0 MCHC 33.3 RDW 13.0 Plt Count 290 MPV 11.6 H Neut % (Auto) 88.2 Lymph % (Auto) 7.1 [place] % (Auto) 1.9 Eos % (Auto) 0.1 Baso % (Auto) 0.1 Neut # (Auto) 11.9 H Lymph # (Auto) 1.0 [place] # (Auto) 0.3 Eos # (Auto) 0.0 Baso # (Auto) 0.0 Nucleated RBC % (a uto) 0 Nucleated RBCs # 0.0 Sodium 137 Potassium 4.2 Chloride 100 Carbon Dioxide 26 Anion Gap 15.2 BUN 17 Creatinine 0.7 GFR Calculation 89.3 L Glucose 171 H POC Glucose Calculated Osmolal ity 284 L Calcium 9.3 Vitals: Last Vital Signs Temp 98.2 F 08/28/19 16:55 Pulse 91 08/28/19 17:03 Resp 18 08/28/19 17:03 BP 158/95 08/28/19 16:55 Pulse Ox 94 08/28/19 17:03 Discharge Plan Discharge Patient Disposition: Home, Self-Care Condition: Stable Prescriptions: New montelukast 10 mg Tablet 10 mg PO QPM Qty: 30 RF: 0 benzonatate 100 mg Capsule 100 mg PO TID PRN (Reason: Cough) Qty: 30 RF: 0 prednisone 20 mg tablet See Rx Instructions .ROUTE .COMPLEX Qty: 21 RF: 0 Advair Diskus 250-50 mcg/dose blister with device 1 inh INHALATION BID Qty: 60 RF: 0 Levaquin 750 mg tablet 750 mg PO DAILY 5 Days RF: 0 Continued guaifenesin [Adult Tussin Chest Congestion] 100 mg/5 mL liquid 400 mg PO Q6H 30 Days Qty: 2400 RF: 0 citalopram [Celexa] 20 mg tablet 20 mg PO DAILY 30 Days Qty: 30 RF: 2 amlodipine 10 mg tablet 10 mg PO DAILY 30 Days Qty: 30 RF: 2 celecoxib 200 mg capsule 200 mg PO BID 30 Days Qty: 60 RF: 5 albuterol sulfate [ProAir HFA] 90 mcg/actuation HFA aerosol inhaler 2 puff INHALATION Q6H PRN (Reason: shortness of breath or wheezing) Qty: 8.5 RF: 0 budesonide [Pulmicort] 0.5 mg/2 mL suspension for nebulization 0.5 mg INHALATION BID Qty: 60 RF: 2 albuterol sulfate 2.5 mg /3 mL (0.083 %) solution for nebulization 2.5 mg INHALATION Q4H Qty: 300 RF: 0 pravastatin 20 mg Tablet 20 mg PO DAILY RF: 0 No Action (DME) Knee immobilizer Qty: 1 RF: 0 Discharge Orders: Discharge Order (Routine); Ordered 08/28/19 Ordered By: Abelardo Ordaz Referrals: [facility] [place] [Outside] Ruthann Clemente FNP-C [Primary Care Provider] - (You have a hospital followup with Erma Sorto at [facility] on August 31 at 10:00) Tatiana Vidal MD [Physician] - 1-3 days (You have a pulmonology appointment with Dr. Vidal at [facility] [place] [facility] on August 29 at 1:00pm) Discharge Diet: Advance as tolerated Discharge Activity: Resume usual activity Patient Instructions: Asthma Exacerbation - Adult, Benzonatate (By mouth), Prednisone (By mouth), Levofloxacin (By mouth), Montelukast (By mouth), Fluticasone/Salmeterol (By breathing), Acute Bronchitis (ED) Activity Restrictions/Additional Instructions: Please obtain a pulse oximeter, and assess your oxygen saturation several times a day. Record values. Target saturation 92%. If saturation drops below, and stays below 88% without improvement, please seek medical attention. Similarly if you get progressive worsening shortness of breath, any associated non- resolving chest pain, fainting, change in the color of her skin, or other abnormal symptoms, please seek medical attention. Avoid food for several hours prior to going to sleep, as this may worsen reflux, and contribute to symptoms of shortness of breath, cough. Avoid foods which may exacerbate reflux like coffee, chocolate, mint, spicy food and alcohol. Continue to use her CPAP. Follow-up with pulmonology in office. Discharge Date/Time: 08/28/19 18:12 Discharge Attestations Time Spent in Discharge Care*: greater than 30 min Quality Metrics Clinical Quality Measures During this hospital stay, did patient experience: None Coding Level of Care Code Acute Emergency Planner for Roseg Fwd Diagnoses Bronchitis J40 Asthma with exacerbation J45.901 Asthma severity: moderate Hypertension I10 Hypertension type: essential hypertension Anxiety and depression F41.9; F32.9
== END 2019-08-28 18:12 | disposition home or self-care (01) | DRG 202 ==
LOC: ER 17:08 → ICU 19:57 → MEDSURG 08-26 20:10
PROVIDERS: Internal Medicine; Admitting Provider Internal Medicine; Emergency Provider Emergency Medicine; Family Provider Nurse Practitioner Family; PCP Nurse Practitioner Family; Visit Provider Internal Medicine
DX: J20.9 Acute bronchitis, unspecified (principal); J96.01 Acute respiratory failure with hypoxia; J45.41 Moderate persistent asthma with (acute) exacerbation; Z68.41 Body mass index [BMI] 40.0-44.9, adult; E66.01 Morbid (severe) obesity due to excess calories; K21.9 Gastro-esophageal reflux disease without esophagitis; F41.8 Other specified anxiety disorders; E78.5 Hyperlipidemia, unspecified; I10 Essential (primary) hypertension; K58.9 Irritable bowel syndrome, unspecified; N39.46 Mixed incontinence; M19.90 Unspecified osteoarthritis, unspecified site; F43.10 Post-traumatic stress disorder, unspecified; E89.0 Postprocedural hypothyroidism; Z87.891 Personal history of nicotine dependence; G47.33 Obstructive sleep apnea (adult) (pediatric); Z79.51 Long term (current) use of inhaled steroids
CPT/HCPCS: 12345; 36415; 36416; 36600; 71045; 80048; 80053; 82728; 82803; 82962; 83615; 83880; 84484; 85025; 85378; 85610; 87070; 87205; 87635; 93005; 94640; 96372; 96375; 99284; J0456; J0696; J1170; J1650; J1815; J2920; J2930; J3535; J7050; J7611; Q0144

== ENCOUNTER 2019-08-30 13:56 | Outpatient (CLI) | payer OTHER, MEDICAID, SELFPAY ==
[2019-08-31 16:36] LABS: Alternaria Alternata (M6) Ige <0.10 kU/L; Alternaria Class 0; Bermuda Class 0; Bermuda Grass (G2) Ige <0.10 kU/L; Cat Dander (E1) Ige 0.47 kU/L; Cat Dander Class 1; Common Ragweed (Short) (W1) Ig <0.10 kU/L; D. Farinae Class 0/1; Dermatophagoides Class 0/1; Dermatophagoides Farinae (D2) 0.11 kU/L; Dermatophagoides Pteronyssinus 0.11 kU/L; Dog Dander (E5) Ige 0.37 kU/L; Dog Dander Class 1; Elm (T8) Ige <0.10 kU/L; Elm Class 0; English Plantain (W9) Ige <0.10 kU/L; English Plantain Class 0; House Dust (Greer) (H1) Ige <0.10 kU/L; House Dust (Hollister- Stier) 0.14 kU/L; House Dust Class 0; House Dust Class 0/1; Immunoglobulin E 308 kU/L (<OR=114); Immunoglobulin E 332 kU/L (<OR=114); Johnson Grass (G10) Ige <0.10 kU/L; Johnson Grass Cl 0; June Grass Class 0; June Grass(Kentucky Blue) (G8) <0.10 kU/L; Lamb'S Quarters (Goose Foot) <0.10 kU/L; Lamb'S Quarters Class 0; Maple (Box Elder) (T1) Ige <0.10 kU/L; Maple Class 0; Meadow Fescue (G4) Ige <0.10 kU/L; Meadow Fescue Class 0; Mucor Racemosus Class 0; Oak (T7) Ige <0.10 kU/L; Oak Class 0; Orchard Grass (Cocksfoot) (G3) <0.10 kU/L; Penicillium Class 0; Penicillium Notatum (M1) Ige <0.10 kU/L; Perennial Rye Grass (G5) Ige <0.10 kU/L; Perennial Rye Grass Class 0; Ragweeed Class 0; Rough Marsh Elder (W16) Ige <0.10 kU/L; Rough Marsh Elder Class 0; Sweet Vernal Class 0; Sweet Vernal Grass (G1) Ige <0.10 kU/L; Timothy Grass (G6) Ige <0.10 kU/L; Timothy Grass Class 0
[2019-09-04 16:17] LABS: Aspergillus Fumigatus, Igg Ab, 22.3 mg/L (<=102)
== END 2019-08-30 13:57 | disposition home or self-care (01) ==
LOC: LAB 13:59
PROVIDERS: PCP Nurse Practitioner Family; Visit Provider Internal Medicine Critical Care Medicine
DX: J45.901 Unspecified asthma with (acute) exacerbation (principal)
CPT/HCPCS: 82785; 86003

== ENCOUNTER 2019-10-24 10:54 | Outpatient (CLI) | payer OTHER, MEDICAID, SELFPAY ==
--- NOTE | 2019-10-24 13:32 | PFTS_ITS ---
Date of Study:10/24/19 Date of Dictation: MECHANICS: Forced vital capacity (FVC) is normal. Forced expiratory volume in one second (FEV1) is normal. FEV1/FVC is normal. FLOW VOLUME LOOP: Normal. LUNG VOLUMES: Total lung capacity (TLC) is normal. Residual volume (RV) is normal. DIFFUSING CAPACITY FOR CARBON MONOXIDE: Normal. INTERPRETATION: The pulmonary function tests are normal. Postbronchodilator response was not performed. Lung volumes are normal. Gas exchange (DLCO) is normal. MTDD
== END 2019-10-24 10:55 | disposition home or self-care (01) ==
LOC: RT 10:55
PROVIDERS: PCP Nurse Practitioner Family; Visit Provider Internal Medicine Critical Care Medicine
DX: J45.901 Unspecified asthma with (acute) exacerbation (principal)
CPT/HCPCS: 94010; 94726; 94729

== ENCOUNTER → 2019-11-02 08:49 | Outpatient (BNVA) | payer OTHER, MEDICAID, SELFPAY | PROVIDERS: PCP Nurse Practitioner Family; Visit Provider Nurse Practitioner Women's Health | DX: N93.9 Abnormal uterine and vaginal bleeding, unspecified (principal); N83.201 Unspecified ovarian cyst, right side; N83.202 Unspecified ovarian cyst, left side; N85.4 Malposition of uterus | CPT/HCPCS: 76830 ==

== ENCOUNTER 2019-11-07 12:04 | Outpatient (CLI) | payer OTHER, MEDICAID, SELFPAY ==
--- NOTE | 2019-11-07 13:00 | MR_ITS ---
WS: [id number] MRI RIGHT SHOULDER NONCONTRAST TECHNIQUE: Sagittal T2, coronal T1, T2 and proton density imaging. Axial gradient PDE imaging. CLINICAL INFORMATION: M25.511 Pain in right shoulder COMPARISON: None. FINDINGS: Moderate degenerative arthritis at the AC joint with small amount of subacromial fluid. Small amount of edema and fluid in the AC joint. Minimal downsloping of the acromium. Distal supraspinatus is norm al. Normal infraspinatus. Tiny amount of tendinopathy in the supraspinatus distally. Normal teres minor. Normal subscapularis. Normal biceps tendon in the bicipital groove. Normal biceps labral anchor. Small labral tear involving the anterior inferior glenoid labrum with lobulated peril abral cyst measuring 9 x 11 x 5 mm. MR/MR shoulder RT wo con* [id number] IMPRESSION: 1. Moderate degenerative arthritis AC joint with mild edema and slight downslo ping of the acromion. 2. Mild tendinopathy involving the supraspinatus. 3. Rotator cuff is otherwise intact. 4. Anterior inferior labral tear with small perilabral cyst measuring 9 x 11 x 5 mm. This is likely chronic. 5. Normal biceps labral anchor. 6. Normal biceps tendon in the bicipital groove.
== END 2019-11-07 12:05 | disposition home or self-care (01) ==
PROVIDERS: PCP Nurse Practitioner Family; Visit Provider Nurse Practitioner Family
DX: M25.511 Pain in right shoulder (principal); M19.011 Primary osteoarthritis, right shoulder
CPT/HCPCS: 73221; 80053; 80061; 81025; 85025

== ENCOUNTER → 2019-11-16 09:41 | Outpatient (BNVA) | payer OTHER, MEDICAID, SELFPAY | PROVIDERS: PCP Nurse Practitioner Family; Referring Provider Nurse Practitioner Family; Visit Provider Specialist | DX: M25.511 Pain in right shoulder (principal) | CPT/HCPCS: 73030 ==

== ENCOUNTER 2020-01-25 13:26 | Emergency (ER) | payer OTHER, MEDICAID, SELFPAY ==
--- NOTE | 2020-01-25 13:30 | ECG_ITS ---
[facility] Test Date: 2020-01-25 Pat Name: Ani Bermudez Department: Room: Gender: Female Lab Analyst: : 1970 Requested By: Dana Flores Order Number: [id number] Namrata MD: Tobi Gaitan M.D. Measurements Intervals Siren Rate: 84 P: 57 AK: 191 QRS: 44 QRSD: 78 T: 44 QT: 381 QTc: 453 Interpretive Statements SINUS RHYTHM NONSPECIFIC T-WAVE ABNORMALITY Compared to ECG 08/25/2019 23:45:19 First degree AV block no longer present T-wave abnormality still present Electronically Signed On 01-25-2020 19:25:06 CDT by Tobi Gaitan M.D. [id number] f
--- NOTE | 2020-01-25 13:30 | XR_ITS ---
WS: [id number] Portable AP upright chest, 01/25/2020 Clinical Data: sob Comparison: Portable chest, 08/25/2019. Findings: No nodules, masses or effusions are seen. The heart is normal. The pulmonary vascularity is not increased. No pneumonia or pneumothorax is seen. XR/XR chest 1V portable [id number] Impression: Negative chest.
[2020-01-25 13:41] VITALS: BP 146/92; PULSE 92; RESP 30; TEMP 36.6; O2SAT 95; BMI 40.3
[2020-01-25 14:04] LABS: Basophils % 0.5 %; Eosinophils # 0.5 10^3/uL (0.0-0.8); Eosinophils % 5.7 %; Hemoglobin 13.6 g/dL (11.5-15.3); Lymphocytes # 1.2 10^3/uL (0.8-4.8); Lymphocytes % 13.6 %; Mean Corpuscular Hemoglobin 30.4 pg (28.0-34.0); Mean Corpuscular Volume 89.3 fL (81-99); Mean Platelet Volume 11.3 fL (7.4-10.4); Monocytes # 0.6 10^3/uL (0.2-0.9); Monocytes % 6.4 %; Neutrophils # 6.29 10^3/uL (1.8-7.7); Neutrophils % 73.4 %; Nucleated Red Blood Cells % 0 %; Platelet Count 273 10^3/cmm (130-400); Red Blood Count 4.48 10^6/uL (4.1-5.3); Red Cell Distribution Width 12.5 % (12.1-15.1); White Blood Count 8.6 10^3/uL (4.0-10.0)
--- NOTE | 2020-01-25 14:10 | W.ED.SOB ---
HPI - SOB/Dyspnea General: Chief Complaint: Shortness of Breath/Dyspnea Stated Complaint: sob Time Seen by Provider: 01/25/20 13:49 History of Present Illness: HPI Narrative: This patient is a 49-year-old female who presents to the emergency department with complaints of shortness of breath. She has a history of asthma and refers to this as an asthma attack. She takes an albuterol inhaler as a rescue inhaler and said she has been using that in the last 2 days without much relief. She is also on 2 nasal sprays and montelukast. She sees Dr. Vidal. She denies any exposure to anyone with known or suspected COVID. She has not had a fever. Her symptoms started suddenly yesterday. Today she is coughing up some yellow sputum. She said she feels like someone is sitting on her chest but denies chest pain, she says it feels tight like she cannot get air in. MD elicited complaint: shortness of breath, cough and asthma attack Pertinent past history: asthma Onset (ago): day(s) (2) Timing: constant Severity: severe Exacerbating factors: exertion, movement, coughing and talking Relieving factors: nothing Associated symptoms: Reports chest congestion and cough; Deny chest pain, fever(s) or vomiting Treatment prior to arrival: bronchodilator Review of Systems General: Reports: 10 or more systems reviewed and unremarkable except in HPI and below Const: Denies: fever(s), chills, fatigue or malaise Eyes: Denies: change in vision ENMT: Denies: odynophagia Card: Denies: chest pain or swelling of feet/ankles Resp: Reports: chest congestion GI: Denies: vomiting : Denies: flank pain or difficulty voiding Musc: Denies: neck pain or back pain Skin/Breast: Denies: rash Neuro: Denies: headache(s), numbness in extremities or weakness in extremities [place]/Lymph: Denies: easy bruising or easy bleeding PFSH ED PFSH: Medical History Environmental and seasonal allergies GERD (gastroesophageal reflux disease) Hiatal hernia Irritable bowel syndrome (IBS) Mixed stress and urge urinary incontinence PTSD (post-traumatic stress disorder) Seasonal allergies Spinal stenosis Tachyarrhythmia Surgical History H/O laparoscopy (~2017) incarcerated -- Johnnie History of carpal tunnel release right History of delivery x 4--1990,1996,2000,2006 History of cholecystectomy (~2015) History of dilation and curettage (~1999) History of thyroidectomy (~2009) Hemithyroidectomy--- has never been able to tolerate medication History of total knee arthroplasty Hx of appendectomy (~1992) Hx of arthroscopic knee surgery 3 surgeries S/P ACL reconstruction (~2003) right Status post laparoscopic hernia repair (~2012) hiatal Family History Mother Hypertension Stroke Diabetes Sister Hypertension Grandmother Hypertension Cancer Paternal --Bladder, liver and brain Ovarian cancer Maternal Brother Cancer Brain tumor Diabetes Social History Smoking and tobacco status: former smoker Quit status (tobacco): has quit using tobacco Year quit tobacco: 2001 - 1.5 PPD x 12 Years Former quit date comment: Quit at age 31 Second hand smoke exposure: No Smoking risk assessment/counseling performed?: No Alcohol intake: never Desire information about alcohol rehabilitation?: No Counseling given: No Desire information about substance/drug rehabilitation?: No Counseling given: No Lives independently: Yes Household members: none Marital status: Legally service: No Current occupational status: disabled History of recent travel: No Current gender identity: Female Additional social history: Well balanced diet Physical Exam Const: COMMON NORMALS: no acute distress, patient oriented x3, no limitations and alert GENERAL APPEARANCE: cooperative and comfortable HENMT: HEAD & SCALP: normal to inspection FACE & SINUS: normal facial exam Eye: GENERAL EYE: appearance normal, both eyes and all related structures Neck/C-Spine: COMMON NORMALS: supple, no meningeal signs and no JVD Chest: COMMONS NORMALS: normal inspection of the chest Resp: EFFORT & INSPECTION: Yes tachypneic, Yes labored and Yes uses accessory muscles AUSCULTATION: wheezes (Moderate, throughout) Cardio: COMMON NORMALS: no JVD, regular rate, regular rhythm and No murmurs present (Cardio) RATE: regular rate RHYTHM: regular rhythm GI: COMMON NORMALS: Normal to inspection, nondistended, normoactive bowel sounds present, Soft to palpation and non-tender INSPECTION: Yes normal to inspection AUSCULTATION: Yes normoactive bowel sounds PALPATION: Yes Soft to palpation Back/Pelvis: COMMON NORMALS: thoracic and lumbar spine normal to inspection Extremity: COMMON NORMALS: normal to inspection Neuro: COMMON NORMALS: patient oriented x3, moves all extremities, no focal motor deficits and no sensory deficits noted SENSORIUM/ORIENTATION: Yes alert MENINGEAL SIGNS: Yes no meningeal signs Psych: COMMON NORMALS: mental status grossly normal, cooperative and normal affect Skin: COMMON NORMALS: no rashes or lesions noted and turgor normal GENERAL SKIN EXAM: no rashes or lesions noted and turgor normal Course ED course: Patient has not yet gotten her breathing treatment. Her O2 sats dropped into the high 80s. Although she has no known exposures or suspected exposures to COVID I decided to put her on precautions and test her. Reevaluation(s): Reevaluation #1: After 4 puffs of albuterol MDI he wheezing was gone. She saw a little bit of crackles. Sats on room air are now 94%. We discussed plan for outpatient management with antibiotics and prednisone. She is relieved to know she is COVID negative. I think that test is reliable in her as her symptoms are not really clinically what have typically been seen with COVID. She has outpatient follow-up and return precautions. Vital Signs: Vital signs: Vital Signs Temperature 97.9 F 01/25/20 13:41 Pulse Rate 88 01/25/20 16:16 Respiratory Rate 17 01/25/20 16:16 Blood Pressure 171/89 01/25/20 14:26 Pulse Oximetry 98 01/25/20 16:16 MDM - SOB/Dyspnea Lab Data: Labs: Lab Results 01/25/20 01/25/20 01/25/20 Range/Units 13:55 13:55 13:55 WBC 8.6 (4.0-10.0) 10^3/ uL RBC 4.48 (4.1-5.3) 10^6/u L Hgb 13.6 (11.5-15.3) g/dL Hct 40.0 (37.0-47.0) % MCV 89.3 (81-99) fL MCH 30.4 (28.0-34.0) pg MCHC 34.0 (30.0-36.0) g/dL RDW 12.5 (12.1-15.1) % Plt Count 273 (130-400) 10^3/c mm MPV 11.3 H (7.4-10.4) fL Neut % (Auto) 73.4 % Lymph % (Auto) 13.6 % [place] % (Auto) 6.4 % Eos % (Auto) 5.7 % Baso % (Auto) 0.5 % Neut # (Auto) 6.29 (1.8-7.7) 10^3/u L Lymph # (Auto) 1.2 (0.8-4.8) 10^3/u L [place] # (Auto) 0.6 (0.2-0.9) 10^3/u L Eos # (Auto) 0.5 (0.0-0.8) 10^3/u L Baso # (Auto) 0.0 (0.0-0.1) 10^3/u L Nucleated RBC % (a uto) 0 % Nucleated RBCs # 0.0 /100WBC PT 12.20 (12.1-14.9) SECO NDS INR 0.88 (0.8-1.2) Sodium 135 L (136-145) mmol/L Potassium 3.6 (3.5-5.1) mmol/L Chloride 101 (98-107) mmol/L Carbon Dioxide 22 (22-29) mmol/L Anion Gap 15.6 (5-19) BUN 8 (6-20) mg/dL Creatinine 0.8 (0.5-0.9) mg/dL GFR Calculation 76.6 L (90-130) mL/min Glucose 105 (65-115) mg/dL Calculated Osmolal ity 279 L (285-295) mOsm/k g Calcium 8.9 (8.5-10.5) mg/dL Total Bilirubin 0.6 (0.15-1.2) mg/dL AST 12 (0-32) U/L ALT 14 (0-33) U/L Alkaline Phosphata se 98 (35-105) IU/L Troponin T Baselin e (0-10) ng/L Troponin T 120 Min [place] (0-10) ng/L Delta Troponin T (0-10) ABS# NT-Pro-B Natriuret Pep 46 (0-125) pg/mL Total Protein 7.1 (6.6-8.7) g/dL Albumin 4.1 (3.5-5.2) g/dL Globulin 3.0 (1.3-4.6) g/dL SARS-CoV-2 Ag (Rap id) (Negative) 01/25/20 01/25/20 01/25/20 Range/Units 13:55 15:43 16:32 WBC (4.0-10.0) 10^3/ uL RBC (4.1-5.3) 10^6/u L Hgb (11.5-15.3) g/dL Hct (37.0-47.0) % MCV (81-99) fL MCH (28.0-34.0) pg MCHC (30.0-36.0) g/dL RDW (12.1-15.1) % Plt Count (130-400) 10^3/c mm MPV (7.4-10.4) fL Neut % (Auto) % Lymph % (Auto) % [place] % (Auto) % Eos % (Auto) % Baso % (Auto) % Neut # (Auto) (1.8-7.7) 10^3/u L Lymph # (Auto) (0.8-4.8) 10^3/u L [place] # (Auto) (0.2-0.9) 10^3/u L Eos # (Auto) (0.0-0.8) 10^3/u L Baso # (Auto) (0.0-0.1) 10^3/u L Nucleated RBC % (a uto) % Nucleated RBCs # /100WBC PT (12.1-14.9) SECO NDS INR (0.8-1.2) Sodium (136-145) mmol/L Potassium (3.5-5.1) mmol/L Chloride (98-107) mmol/L Carbon Dioxide (22-29) mmol/L Anion Gap (5-19) BUN (6-20) mg/dL Creatinine (0.5-0.9) mg/dL GFR Calculation (90-130) mL/min Glucose (65-115) mg/dL Calculated Osmolal ity (285-295) mOsm/k g Calcium (8.5-10.5) mg/dL Total Bilirubin (0.15-1.2) mg/dL AST (0-32) U/L ALT (0-33) U/L Alkaline Phosphata se (35-105) IU/L Troponin T Baselin e 6 (0-10) ng/L Troponin T 120 Min [place] 6.00 (0-10) ng/L Delta Troponin T 0 (0-10) ABS# NT-Pro-B Natriuret Pep (0-125) pg/mL Total Protein (6.6-8.7) g/dL Albumin (3.5-5.2) g/dL Globulin (1.3-4.6) g/dL SARS-CoV-2 Ag (Rap id) Negative (Negative) Discharge Plan Discharge Patient Disposition: Home Clinical Impression: Asthma Qualifiers: Asthma severity: moderate Asthma persistence: unspecified Asthma complication type: with acute exacerbation Qualified Code(s): J45.901 - Unspecified asthma with (acute) exacerbation Condition: Stable Prescriptions: New doxycycline hyclate 100 mg tablet 100 mg PO BID 7 Days Qty: 14 RF: 0 prednisone 10 mg tablet 30 mg PO DAILY 5 Days Qty: 15 RF: 0 No Action (DME) Knee immobilizer Qty: 1 RF: 0 albuterol sulfate 2.5 mg /3 mL (0.083 %) solution for nebulization 2.5 mg INHALATION Q4H Qty: 300 RF: 0 pravastatin 20 mg tablet 20 mg PO DAILY 30 Days Qty: 30 RF: 5 celecoxib 200 mg capsule 200 mg PO BID 30 Days Qty: 60 RF: 5 albuterol sulfate [ProAir HFA] 90 mcg/actuation HFA aerosol inhaler 2 puff INHALATION Q6H PRN (Reason: shortness of breath or wheezing) Qty: 8.5 RF: 5 amlodipine 10 mg tablet 10 mg PO DAILY 30 Days Qty: 30 RF: 5 citalopram [Celexa] 20 mg tablet 20 mg PO DAILY 30 Days Qty: 30 RF: 5 montelukast 10 mg tablet 10 mg PO QPM 30 Days Qty: 30 RF: 5 fluticasone propionate [Flonase Allergy Relief] 50 mcg/actuation spray,suspension 1 spray INTRANASAL Q12H 90 Days Qty: 18.2 RF: 5 azelastine 137 mcg (0.1 %) aerosol,spray 1 spray INTRANASAL BID 90 Days Qty: 30 RF: 3 medroxyprogesterone [Provera] 10 mg tablet 10 mg PO DAILY Qty: 10 RF: 0 zinc 50 mg Tablet 100 mg PO Q48H RF: 0 Tesemi Holloway See Rx Instructions .ROUTE .COMPLEX RF: 0 Discharge Orders: Discharge Order (Routine); Ordered 01/25/20 Ordered By: Kiarra Boggs Referrals: Ruthann Clemente FNP-C [Primary Care Provider] - Discharge Diet: Usual diet Discharge Activity: Resume usual activity Patient Instructions: Asthma (ED) Activity Restrictions/Additional Instructions: Continue your regular inhalers and nasal sprays as well as your other regular medications. Plan to use the albuterol every 4 hours for the next 24 hours then just as needed. Take the antibiotic and the prednisone exactly as prescribed. Return to the ED if new or worsening symptoms. Coding Level of Care Code ED Care Consultant for Mago Fwnora Exam Comprehensive
[2020-01-25 14:20] LABS: INR 0.88 (0.8-1.2)
[2020-01-25 14:26] VITALS: BP 171/89; PULSE 87; RESP 18; O2SAT 98
[2020-01-25 14:29] LABS: Troponin(5th) Baseline 6 ng/L (0-10)
[2020-01-25 14:34] LABS: Alanine Aminotransferase 14 U/L (0-33); Albumin Level 4.1 g/dL (3.5-5.2); Alkaline Phosphatase 98 IU/L (35-105); Anion Gap 15.6 (5-19); Aspartate Amino Transferase 12 U/L (0-32); Blood Urea Nitrogen 8 mg/dL (6-20); Calcium 8.9 mg/dL (8.5-10.5); Carbon Dioxide 22 mmol/L (22-29); Chloride 101 mmol/L (98-107); Glomerular Filtration Rate 76.6 mL/min (90-130); Glucose 105 mg/dL (65-115); NT Pro B Type Natriuretic Pept 46 pg/mL (0-125); Osmolality Calculated 279 mOsm/kg (285-295); Potassium 3.6 mmol/L (3.5-5.1); Sodium 135 mmol/L (136-145); Total Bilirubin 0.6 mg/dL (0.15-1.2); Total Protein 7.1 g/dL (6.6-8.7)
--- NOTE | 2020-01-25 15:30 | ECG_ITS ---
[facility] Test Date: 2020-01-25 Pat Name: Ani Bermudez Department: Room: Gender: Female Ophthalmologist: : 1970 Requested By: Dana Flores Order Number: [id number] Namrata MD: Tobi Gaitan M.D. Measurements Intervals [place] Rate: 88 P: 64 TX: 199 QRS: 59 QRSD: 76 T: 46 QT: 361 QTc: 437 Interpretive Statements SINUS RHYTHM NONSPECIFIC T-WAVE ABNORMALITY Compared to ECG 01/25/2020 14:09:04 No significant changes Electronically Signed On 01-25-2020 19:31:45 CDT by Tobi Gaitan M.D. [id number]
[2020-01-25] MEDS: albuterol 8 gm MDI 4 PUFF INHALATION (16:10)
[2020-01-25 16:16] VITALS: PULSE 88; RESP 17; O2SAT 98
[2020-01-25 16:17] LABS: Troponin 5 2HR Delta 0 ABS# (0-10)
[2020-01-25 17:03] LABS: SARS Covid-2 Antigen Negative (Negative)
[2020-01-25 18:09] VITALS: BP 157/98; PULSE 91; RESP 26; O2SAT 92
== END 2020-01-25 18:09 | disposition home or self-care (01) ==
PROVIDERS: Emergency Medicine; Emergency Provider Emergency Medicine; PCP Nurse Practitioner Family
DX: J45.901 Unspecified asthma with (acute) exacerbation (principal); Z87.891 Personal history of nicotine dependence
CPT/HCPCS: 12345; 36415; 71045; 80053; 83880; 84484; 85025; 85610; 87426; 93005; 94640; 99281; 99284; J3535

== ENCOUNTER → 2020-02-06 09:13 | Outpatient (BNVA) | payer OTHER, MEDICAID, SELFPAY | PROVIDERS: PCP Nurse Practitioner Family; Visit Provider Nurse Practitioner Family | DX: Z11.59 Encounter for screening for other viral diseases (principal); J98.8 Other specified respiratory disorders | CPT/HCPCS: 87635 ==

== ENCOUNTER 2020-04-30 15:28 | Outpatient (CLI) | payer OTHER, MEDICAID, SELFPAY ==
--- NOTE | 2020-04-30 15:45 | USCV_ITS ---
Bermudez Ani Age: 49 Gender: F : 1970 Exam Date: 04/30/2020 16:08 Ordering Phys: Tatiana Vidal MD Technologist: Eliz Morrison Exam Location: [facility] [place] Indication: SOB BP: 152 / 95 HR: 80 Rhythm: Sinus Technical Quality: Suboptimal MEASUREMENTS (Male / Female) Normal Values 2D ECHO LV Diastolic Diameter PLAX 4.9 cm 4.2 - 5.9 / 3.9 - 5.3 cm LV Systolic Diameter PLAX 3.5 cm LV Chamber Size 4.5 cm IVS Diastolic Thickness 1.3 cm 0.6 - 1.0 / 0.6 - 0.9 cm IVS Systolic Thickness 1.2 cm LVPW Diastolic Thickness 1.0 cm 0.6 - 1.0 / 0.6 - 0.9 cm LVPW Systolic Thickness 1.5 cm RV Chamber Size 3.6 cm LVOT Diameter 2.0 cm LV Ejection Fraction 2D Teich 53.6 % LA Diameter 3.2 cm LA Width 3.3 cm LA Height 4.5 cm RA Width 3.8 cm RA Height 4.5 cm M-MODE LV Diastolic Diameter MM 5.2 cm 4.2 - 5.9 / 3.9 - 5.3 cm LV Systolic Diameter MM 3.3 cm LV Ejection Fraction MM Teich 66.5 % IVS Diastolic Thickness MM 0.8 cm 0.6 - 1.0 / 0.6 - 0.9 cm IVS Systolic Thickness MM 0.9 cm LVPW Diastolic Thickness MM 1.0 cm 0.6 - 1.0 / 0.6 - 0.9 cm LVPW Systolic Thickness MM 1.5 cm Aortic Annulus Diameter 2.5 cm LA Ao Ratio MM 1.4 MV E Point Septal Separation 0.1 cm DOPPLER AV Peak Velocity 134.0 cm/s LVOT Peak Velocity 112.0 cm/s AV Area Cont Eq vti 2.9 cm squared AV Area Cont Eq pk 2.6 cm squared MV Area PHT 3.1 cm squared Mitral E to A Ratio 1.2 MV E' Velocity 42.5 cm/s Mitral E to MV E' Ratio 9.9 Mitral E to LV E' Lateral Ratio 11.3 Mitral E to LV E' Septal Ratio 8.8 TR Peak Velocity 201.8 cm/s TR Peak Gradient 16.3 mmHg TR Mean Velocity 164.6 cm/s TR Mean Gradient 11.2 mmHg TR Velocity Time Integral 59.0 cm TV Peak E Velocity 65.0 cm/s Right Atrial Pressure 3.0 mmHg Pulmonary Artery Systolic Pressu 19.3 mmHg PV Peak Velocity 65.0 cm/s FINDINGS Left Ventricle Normal left ventricular size and systolic function, EF 55% (visual). No gross wall motion abnormalities.no regional wall motion abnormalities. Right Ventricle The right ventricle is normal in size and function. Right Atrium The right atrium is normal in size. Left Atrium The left atrium is normal in size. Mitral Valve No gross abnormalities noted Aortic Valve Trace aortic valve regurgitation. Tricuspid Valve No gross abnormalities noted Pulmonic Valve Pulmonic valve not well visualized. Pericardium Hypoechoic area anteriorly, may suggest, pericardial fat pad. Aorta Normal ascending aorta dimension. CONCLUSIONS Normal left ventricular size and systolic function, EF 55% (visual). No gross wall motion abnormalities.no regional wall motion abnormalities. Trace aortic valve regurgitation. No other significant valvular lesions There is no pericardial effusion. There are no intracardiac masses. No previous study is available for comparison. Dr Tobi Gaitan MD FAC (Electronically Signed) Final Date: 01 May 2020 19:41 S
== END 2020-04-30 15:29 | disposition home or self-care (01) ==
LOC: RAD 15:41
PROVIDERS: PCP Nurse Practitioner Family; Visit Provider Internal Medicine Critical Care Medicine
DX: R06.02 Shortness of breath (principal); I35.1 Nonrheumatic aortic (valve) insufficiency
CPT/HCPCS: 93306

== ENCOUNTER → 2020-06-19 11:47 | Outpatient (BNVA) | payer OTHER, SELFPAY | PROVIDERS: PCP Nurse Practitioner Family; Visit Provider Psychiatry & Neurology Psychiatry | DX: F41.9 Anxiety disorder, unspecified (principal) | CPT/HCPCS: 80061; 83036 ==

== ENCOUNTER → 2020-08-28 10:54 | Outpatient (BNVA) | payer OTHER, MEDICAID, SELFPAY ==
[2020-06-20 10:53] VITALS: BP 149/95; BMI 41.2
== END ==
PROVIDERS: PCP Nurse Practitioner Family; Visit Provider Social Worker
DX: F41.8 Other specified anxiety disorders (principal); F32.9 Major depressive disorder, single episode, unspecified
CPT/HCPCS: 90834

== ENCOUNTER → 2020-09-04 07:58 | Outpatient (BNVA) | payer OTHER, MEDICAID, SELFPAY ==
[2020-06-20 10:53] VITALS: BP 149/95; BMI 41.2
== END ==
PROVIDERS: PCP Nurse Practitioner Family; Visit Provider Social Worker
DX: F41.9 Anxiety disorder, unspecified (principal); F32.9 Major depressive disorder, single episode, unspecified
CPT/HCPCS: 90834

== ENCOUNTER → 2020-09-18 08:05 | Outpatient (BNVA) | payer OTHER, MEDICAID, SELFPAY ==
[2020-06-20 10:53] VITALS: BP 149/95; BMI 41.2
== END ==
PROVIDERS: PCP Nurse Practitioner Family; Visit Provider Social Worker
DX: F41.9 Anxiety disorder, unspecified (principal); F32.9 Major depressive disorder, single episode, unspecified
CPT/HCPCS: 90834

== ENCOUNTER 2020-10-24 10:59 | Outpatient (CLI) | payer OTHER, MEDICAID, SELFPAY ==
[2020-06-20 10:53] VITALS: BP 149/95; BMI 41.2
--- NOTE | 2020-10-24 11:00 | US_ITS ---
WS: [id number] ULTRASOUND ABDOMEN LIMITED CLINICAL INFORMATION: K21.9 - Gastro-esophageal reflux disease without esophagitis COMPARISON: None. FINDINGS: Technically difficult examination due to body habitus. Liver Size: Hepatomegaly Craniocaudal length: 21.1 cm. Echogenicity: Dense Surface nodularity: None. Mass (size and location): None. Bile ducts Intrahepatic ducts: Normal. Common bile duct diameter: 0.7 cm. Gallbladder Surgically absent Pancreas Not well seen due to bowel gas Right kidney: Normal. Hydronephrosis: None. Size: 12.6 cm x 5.1 cm x 4.9 cm. Abdominal aorta and IVC Visualized portions are normal. Ascites: None. US/US abdomen limited 38969 IMPRESSION: 1. Hepatomegaly with diffuse fatty infiltration. 2. Gallbladder surgically absent. 3. No hydronephrosis in right kidney. 4. No ascites.
== END 2020-10-24 11:00 | disposition home or self-care (01) ==
LOC: RAD 11:05
PROVIDERS: PCP Nurse Practitioner Family; Visit Provider Nurse Practitioner Family
DX: K21.9 Gastro-esophageal reflux disease without esophagitis (principal); R16.0 Hepatomegaly, not elsewhere classified; K76.0 Fatty (change of) liver, not elsewhere classified
CPT/HCPCS: 76705

== ENCOUNTER → 2020-12-04 10:27 | Outpatient (BNVA) | payer OTHER, MEDICAID, SELFPAY ==
[2020-12-03 10:58] VITALS: BP 149/95; BMI 41.2
== END ==
PROVIDERS: PCP Nurse Practitioner Family; Visit Provider Nurse Practitioner Family
DX: Z20.822 Contact with and (suspected) exposure to COVID-19 (principal); J45.901 Unspecified asthma with (acute) exacerbation; R05 Cough; J45.41 Moderate persistent asthma with (acute) exacerbation; Z11.52 Encounter for screening for COVID-19
CPT/HCPCS: 87635

== ENCOUNTER 2021-02-18 12:43 | Outpatient (CLI) | payer OTHER, MEDICAID, SELFPAY ==
[2021-01-10 12:42] VITALS: BP 149/95; BMI 41.2
[2021-02-18] MEDS: iohexol 300 mg/mL 50 mL Btl PO (13:45)
--- NOTE | 2021-02-18 14:00 | CT_ITS ---
WS: [id number] CT ABDOMEN PELVIS TECHNIQUE: Contrast-enhanced CT of the abdomen and pelvis with coronal and sagittal reformatted image s. CLINICAL INFORMATION: R10.13 - Epigastric pain COMPARISON: CTA and ultrasound October 24, 2020 DLP: 1070.[address] scans at [facility] use at least one of these dose optimization techniques: automated e xposure control; mA and/or kV adjustment per patient size (includes targeted exams where dose is matc hed to clinical indication); or iterative reconstruction. FINDINGS: Diffuse fatty infiltration of the liver. Normal portal vein and splenic vein. Prior cholecystectomy. Normal spleen. Adrenal glands are normal. Normal renal parenchymal enhancement. No hydronephrosis. Mariza ng bases are well aerated. Normal GE junction. Adrenal glands are normal. Normal renal parenchymal enhancement. No hydronephrosis. Tiny left renal c yst. Normal pancreatic parenchymal enhancement. Normal caliber abdominal aorta. Normal sigmoid colon. No evidence of small or large bowel obstruction. Normal caliber abdominal aorta . No abdominal or pelvic lymphadenopathy. Tiny fat-containing umbilical hernia. Normal lumbar spine. Retroflexed uterine fundus. Normal bladder. CT/CT abdomen pelvis w con* [id number] IMPRESSION: 1. Hepatomegaly with diffuse fatty infiltration. 2. Prior cholecystectomy. 3. Tiny fat-containing umbilical hernia. 4. Normal GE junction. No significant esophageal hiatal hernia. 5. No epigastric or ventral abdominal wall hernia.
[2021-02-18] MEDS: iohexol 300 mg/mL 100 mL Btl IV (14:04)
== END 2021-02-18 12:44 | disposition home or self-care (01) ==
PROVIDERS: PCP Nurse Practitioner Family; Visit Provider Surgery
DX: R16.0 Hepatomegaly, not elsewhere classified (principal); K76.0 Fatty (change of) liver, not elsewhere classified; Z90.49 Acquired absence of other specified parts of digestive tract; K42.9 Umbilical hernia without obstruction or gangrene
CPT/HCPCS: 74177; Q9967

== ENCOUNTER → 2021-03-10 09:55 | Outpatient (BNVA) | payer OTHER, MEDICAID, SELFPAY ==
[2021-01-10 12:42] VITALS: BP 149/95; BMI 41.2
== END ==
PROVIDERS: PCP Nurse Practitioner Family; Visit Provider Surgery
DX: Z01.812 Encounter for preprocedural laboratory examination (principal); Z11.52 Encounter for screening for COVID-19; Z20.822 Contact with and (suspected) exposure to COVID-19
CPT/HCPCS: 87635

== ENCOUNTER → 2021-03-11 12:31 | Day surgery (SDC) | payer OTHER, MEDICAID, SELFPAY ==
[2021-01-10 12:42] VITALS: BP 149/95; BMI 41.2
== END ==
PROVIDERS: PCP Nurse Practitioner Family; Visit Provider Surgery
DX: Z01.818 Encounter for other preprocedural examination (principal)
CPT/HCPCS: 93005

== ENCOUNTER 2021-03-17 05:43 | Day surgery (SDC) | payer OTHER, MEDICAID, SELFPAY ==
[2021-01-10 12:42] VITALS: BP 149/95; BMI 41.2
[2021-03-11 12:24] VITALS: BMI 25.8
--- NOTE | 2021-03-11 12:31 | ECG_ITS ---
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 Measurements Intervals [place] Rate: 76 P: 45 [place]: 208 QRS: 11 QRSD: 84 T: 16 QT: 381 QTc: 431 Interpretive Statements SINUS RHYTHM LOW QRS VOLTAGE IN PRECORDIAL LEADS [QRS DEFLECTION < 1.0 mV IN CHEST LEADS] MINIMAL VOLTAGE CRITERIA FOR LVH, CONSIDER NORMAL VARIANT [MEETS CRITERIA IN ONE OF: R(aVL), S(V1), R(V5), R(V5/V6)+S(V1)] Compared to ECG 01/25/2020 15:31:32 Low QRS voltage now present T-wave abnormality no longer present Electronically Signed On 03-11-2021 22:13:31 STITCH SEPARATOR by Tobi Gaitan M.D. [id number]
--- NOTE | 2021-03-11 12:55 | P.ANESASSM_ITS ---
Pre-Anesthetic Assessment Pre-Anesthetic Assessment: Height/Weight: Height 1.68 m Weight 72.575 kg Proposed Procedure: Operation Date: 03/17/21 09:40 Proposed Procedures p Excision Mass of Abdominal Wall 28637 R22.2(Not Applicable) - Luís Blair MD Was Beta Danis taken within 24 hours: N/A Was Clonidine taken within 24 hours: N/A Social: Social History: No alcohol and No tobacco Exam: Pre-Anes Outpt Exam: alert, oriented x 3, clear to auscultation bilaterally and regular rate & rhythm Airway: Submandibular: WNL Cervical ROM: WNL MP: 2 Dentition: Full Pulmonary: Pulmonary: Asthma CV/HEM: CV/HEM: Arrythmia (tachy--Holter monitor in place) and HTN GI: GI: GERD Metabolic: Metabolic: Morbid obesity Musc/skel: Musc/skel: OA/DJD Neuropsych: Neuropsych: Anxiety and Depression Anesthetic Plan: ASA status: 3 Anesthesia: Choice Risk of > 500 ml blood loss (7ml/kg in children): No PFSH Anesthesia PFSH: Medical History Environmental and seasonal allergies GERD (gastroesophageal reflux disease) Hiatal hernia History of 2019 novel coronavirus disease (COVID-19) Irritable bowel syndrome (IBS) Mixed stress and urge urinary incontinence Psychiatric care PTSD (post-traumatic stress disorder) Seasonal allergies Spinal stenosis Tachyarrhythmia Surgical History H/O esophagogastroduodenoscopy H/O laparoscopy (~2017) incarcerated -- Johnnie History of carpal tunnel release right History of delivery x 4--1990,1996,2000,2006 History of cholecystectomy (~2015) History of dilation and curettage (~1999) History of thyroidectomy (~2009) Hemithyroidectomy--- has never been able to tolerate medication History of total knee arthroplasty Hx of appendectomy (~1992) Hx of arthroscopic knee surgery 3 surgeries S/P ACL reconstruction (~2003) right Status post laparoscopic hernia repair (~2012) hiatal Family History Mother Hypertension Stroke Diabetes CAD (coronary artery disease) Sister Hypertension Grandmother Hypertension Cancer Paternal --Bladder, liver and brain Ovarian cancer Maternal CAD (coronary artery disease) Brother Cancer Brain tumor Diabetes Family/Other Dementia Suicide Father Lung disease Denies family history of Clotting disorder Chronic kidney disease (CKD) Anesthesia complication Bleeding disorder Social History Smoking and tobacco status: former smoker Quit status (tobacco): has quit using tobacco Year quit tobacco: 2002 - 1.5 PPD x 12 Years Former quit date comment: Quit at age 31 Second hand smoke exposure: No Alcohol intake: never Adopted: No Caregiver/support person: No Lives independently: Yes Household members: children and friend(s) Housing: Condominium Marital status: Legally Number of children: 5 Number of grandchildren: 1 Highest education level completed: Some College, No 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: [employer] Assignments: Inside [facility] ([facility]) Known or Potential Exposure: Post Traumatic Stress Disorder (PTSD) Current occupational status: disabled Pets and animals: Yes Pets & animals: cat(s) History of recent travel: No Leisure activites: art and games Sexually active: No Current gender identity: Female Cindy/Catholic: Confucianist Special cindy needs: No Agree to transfusion: Yes Financial difficulty paying for basics: Somewhat Hard Additional social history: Well balanced diet Female Reproductive History: Para: 5 Spontaneous abortions: Yes (at 20 weeks) Data Anesthesia Cardiac Studies: No Data to Display
[2021-03-17] VITALS (9 sets, daily range): BP systolic 123–176; BP diastolic 85–109; PULSE 73–101; RESP 13–18; TEMP 36.5–36.9; O2SAT 94–100
--- NOTE | 2021-03-17 06:29 | P.ANESUD_ITS ---
Pre-Anesthetic Update Pre-Anesthetic Assessment: Date of Surgery/Procedure: 03/17/21 Preop Ebony gnosis: Abdominal wall mass Proposed Procedure: Operation Date: 03/17/21 07:00 Proposed Procedures p Excision Mass of Abdominal Wall 49288 R22.2(Not Applicable) - Luís Blair MD Any changes to Pre-Anesthetic Assessment?: No Last Intake: Intake Last Liquid Date 03/16/21 Last Liquid Time 20:00 Last Solid Date 03/16/21 Last Solid Time 18:00 Vitals: Temperature 98.3 F 03/17/21 06:01 Temperature Source Temporal Artery S can 03/17/21 06:01 Pulse Rate 73 03/17/21 06:01 Respiratory Rate 18 03/17/21 06:01 Blood Pressure 176/109 03/17/21 06:01 Blood Pressure Grecia n 131 03/17/21 06:01 Pulse Oximetry 98 03/17/21 06:01 Oxygen Delivery Me thod 03/17/21 06:11 Exam: Pre-Anes Outpt Exam: alert, oriented x 3, clear to auscultation bilaterally and regular rate & rhythm Cardiac Studies: No Data to Display
[2021-03-17] MEDS: sodium chloride 0.9% 1,000 ML 30 ML IV (06:49)
--- NOTE | 2021-03-17 06:57 | W.PM.OPSFHP ---
Same Day Surgery H&P Indication for Procedure/HPI DATE OF PROCEDURE: March 17, 2021 CHIEF COMPLAINT/INDICATIONFOR SURGICAL PROCEDURE: abdominal wall mass PREOP DIAGNOSIS: Abdominal wall mass PLANNED PROCEDRUE: Operation Date: 03/17/21 07:00 Proposed Procedures p Excision Mass of Abdominal Wall 95633 R22.2(Not Applicable) - Luís Blair MD Medications/Allergies* Home Medications Medication Instructions Recorded Confirmed Type benzonatate 1 mg PO TID 03/11/21 03/11/21 History tiotropium bromide [Spiriva 2 puff INHALATION DAILY 03/11/21 03/17/21 History Respimat] Allergies/Adverse Reactions Allergy/AdvReac Type Severity Reaction Status Date / Time levothyroxine sodium Allergy Unknown unknown Verified 03/04/21 13:55 morphine Allergy Unknown itching Verified 03/04/21 13:55 ranitidine Allergy Unknown unknown Verified 03/04/21 13:55 thyroid, pork Allergy Unknown unknown Verified 03/04/21 13:55 [From Bartelso Thyroid] tramadol Allergy Unknown unknown Verified 03/04/21 13:55 Current Medications: Generic Name Dose Route Start Last Admin Trade Name Freq PRN Reason Stop Dose Admin Sodium Chloride 1,000 mls @ 30 mls/hr 03/17/21 06:00 03/17/21 06:49 Sodium Chloride 0.9% IV 03/18/21 05:59 30 mls/hr .Q24H ALEXY Administration Pertinent History/Comorbid Conditions* Medical History (Updated 02/24/21 @ 15:16 by Tobi Gaitan MD) Environmental and seasonal allergies GERD (gastroesophageal reflux disease) Hiatal hernia History of 2019 novel coronavirus disease (COVID-19) Irritable bowel syndrome (IBS) Mixed stress and urge urinary incontinence Psychiatric care PTSD (post-traumatic stress disorder) Seasonal allergies Spinal stenosis Tachyarrhythmia Surgical History (Updated 01/28/21 @ 13:27 by Luís Blair MD) H/O esophagogastroduodenoscopy H/O laparoscopy (~2017) incarcerated -- [facility]nie History of carpal tunnel release right History of delivery x 4--1990,1996,2000,2007 History of cholecystectomy (~2015) History of dilation and curettage (~1999) History of thyroidectomy (~2009) Hemithyroidectomy--- has never been able to tolerate medication History of total knee arthroplasty Hx of appendectomy (~1992) Hx of arthroscopic knee surgery 3 surgeries S/P ACL reconstruction (~2003) right Status post laparoscopic hernia repair (~2012) hiatal Family History (Updated 02/24/21 @ 14:56 by La Pinto RN) Ovarian cancer Grandmother Maternal Diabetes Mother Brother CAD (coronary artery disease) Mother Grandmother Dementia Family/Other Suicide Family/Other Lung disease Father Cancer Grandmother Paternal --Bladder, liver and brain Brother Brain tumor Hypertension Mother Sister Grandmother Stroke Mother Denies family history of Clotting disorder Chronic kidney disease (CKD) Anesthesia complication Bleeding disorder Social History Smoking and tobacco status: former smoker Quit status (tobacco): has quit using tobacco Year quit tobacco: 2001 - 1.5 PPD x 12 Years Former quit date comment: Quit at age 31 Second hand smoke exposure: No Alcohol intake: never Adopted: No Caregiver/support person: No Lives independently: Yes Household members: children and friend(s) Housing: Condominium Marital status: Legally Number of children: 5 Number of grandchildren: 1 Highest education level completed: Some College, No 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: [employer] Assignments: Inside [facility] ([facility]) Known or Potential Exposure: Post Traumatic Stress Disorder (PTSD) Current occupational status: disabled Pets and animals: Yes Pets & animals: cat(s) History of recent travel: No Leisure activites: art and games Sexually active: No Current gender identity: Female Cindy/Pentecostal: Sabianist Special cindy needs: No Agree to transfusion: Yes Financial difficulty paying for basics: Somewhat Hard Additional social history: Well balanced diet Pertinent Exam Findings alert, oriented x 3 and regular rate & rhythm Recommendations Surgery/Procedure today Coding Level of Care Code Acute Parachute Cushion Installer for Mago Fletcher
[2021-03-17] MEDS: lidocaine 1% INJ 20 mL INJECTION (07:13)
--- NOTE | 2021-03-17 07:58 | P.OP_ITS ---
Operative Report Date of procedure: March 17, 2021 Pre-op Diagnosis: Abdominal wall mass Post-op Diagnosis: 6 x 5cm lipoma with associated scar tissue from prior surgery Procedure Done: Excision of abdominal wall mass Specimens removed/disposition: Abdominal wall mass Surgeon: Luís Blair Anesthesia: MAC Condition: stable Disposition: PACU Procedure: The patient was taken to the operating room and intubated under g eneral anesthesia after IV antibiotic had been administered. The abdomen around the epigastric region was prepped and draped in a sterile manner around the previously marked site of the palpable mass. Using a 15 blade a 5 cm transverse incision was made, subcutaneous tissues divided with electrocautery and the 6 x 5 cm lipoma was dissected free from the surrounding subcutaneous tissue and sent to pathology. There was also 2 x 2 centimeter nodule which appeared to be scar tissue from prior surgery which was also excised using electrocautery. There was no evidence of incisional hernia. The wound was irrigated with saline and subcutaneous tissues were approximated using running 3-0 Vicryl suture and skin was closed using running subcuticular 4-0 Monocryl suture and Dermabond. 1% lidocaine with .5% Marcaine was infiltrated at the surgical site. The patient was transferred to recovery room in stable condition.
[2021-03-17] MEDS: fentaNYL 50 mcg/mL INJ 2mL IVP (08:07)
[2021-03-17] MEDS: HYDROcodone-acetaminophen 5-325 mg Tablet 1 TAB PO (08:47)
[2021-03-17] MEDS: ondansetron 2 mg/ML SDV 2 mL 4 MG IVP (08:51)
--- NOTE | 2021-03-17 14:50 | ANE.PACU2 ---
Inpatient post-anesthesia follow up: Airway intact: No Vital signs: Temperature 98.5 F Pulse Rate 73 Respiratory Rate 18 Blood Pressure 162/88 Pulse Oximetry 96 Oxygen Delivery Me thod Room Air Oxygen Flow Rate 4 Fraction of Inspir ed Oxygen Hydration adequate: Yes Nausea and vomiting: Yes Pain level: 3 Mental status: Baseline
== END 2021-03-17 09:25 | disposition home or self-care (01) ==
PROVIDERS: PCP Nurse Practitioner Family; Visit Provider Surgery
PROC: (CPT 22902; principal; 2021-03-17 07:00)
DX: R22.2 Localized swelling, mass and lump, trunk (principal); K58.9 Irritable bowel syndrome, unspecified; Z88.5 Allergy status to narcotic agent; Z90.89 Acquired absence of other organs; Z90.49 Acquired absence of other specified parts of digestive tract; Z87.891 Personal history of nicotine dependence
CPT/HCPCS: 22902; 88304; J0690; J2405; J2704; J3010; J3490; J7030

== ENCOUNTER → 2021-03-26 08:48 | Outpatient (BNVA) | payer OTHER, MEDICAID, SELFPAY ==
[2021-01-10 12:42] VITALS: BP 149/95; BMI 41.2
== END ==
PROVIDERS: PCP Nurse Practitioner Family; Visit Provider Nurse Practitioner Family
DX: R53.83 Other fatigue (principal); E78.5 Hyperlipidemia, unspecified; W19.XXXA Unspecified fall, initial encounter; Y92.009 Unspecified place in unspecified non-institutional (private) residence as the place of occurrence of the external cause; M54.50 Low back pain, unspecified; M25.511 Pain in right shoulder; M25.561 Pain in right knee; J45.20 Mild intermittent asthma, uncomplicated; K21.9 Gastro-esophageal reflux disease without esophagitis; I10 Essential (primary) hypertension; Z98.890 Other specified postprocedural states
CPT/HCPCS: 80053; 80061; 84439; 84443; 84481; 85025; 86376

== ENCOUNTER → 2021-06-24 09:01 | Outpatient (BNVA) | payer OTHER, MEDICAID, SELFPAY ==
[2021-01-10 12:42] VITALS: BP 149/95; BMI 41.2
== END ==
PROVIDERS: PCP Nurse Practitioner Family; Visit Provider Nurse Practitioner Family
DX: R73.9 Hyperglycemia, unspecified (principal)
CPT/HCPCS: 83036

== ENCOUNTER → 2021-06-30 15:54 | Outpatient (BNVA) | payer OTHER, MEDICAID, SELFPAY ==
[2021-01-10 12:42] VITALS: BP 149/95; BMI 41.2
== END ==
PROVIDERS: PCP Nurse Practitioner Family; Referring Provider Nurse Practitioner Family; Visit Provider Podiatrist Foot & Ankle Surgery
DX: M79.671 Pain in right foot (principal); M79.672 Pain in left foot
CPT/HCPCS: 73630

== ENCOUNTER 2021-08-12 06:00 | Outpatient (RCR) | payer OTHER, MEDICAID, SELFPAY ==
[2021-07-08 10:08] VITALS: BP 158/98; BMI 42.8
== END 2021-08-23 23:59 | disposition home or self-care (01) ==
LOC: APT 06:00
PROVIDERS: PCP Nurse Practitioner Family; Referring Provider Podiatrist Foot & Ankle Surgery; Visit Provider Podiatrist Foot & Ankle Surgery
DX: M72.2 Plantar fascial fibromatosis (principal)
CPT/HCPCS: 97035; 97110; 97163

== ENCOUNTER 2021-08-24 06:00 | Outpatient (RCR) | payer OTHER, MEDICAID, SELFPAY ==
[2021-07-08 10:08] VITALS: BP 158/98; BMI 42.8
== END 2021-09-18 23:59 | disposition home or self-care (01) ==
LOC: APT 06:00
PROVIDERS: PCP Nurse Practitioner Family; Referring Provider Podiatrist Foot & Ankle Surgery; Visit Provider Podiatrist Foot & Ankle Surgery
DX: M72.2 Plantar fascial fibromatosis (principal)
CPT/HCPCS: 97035; 97110

== ENCOUNTER 2021-09-25 10:52 | Outpatient (CLI) | payer OTHER, MEDICAID, SELFPAY ==
[2021-07-08 10:08] VITALS: BP 158/98; BMI 42.8
== END 2021-09-25 10:53 | disposition home or self-care (01) ==
LOC: SPT 10:55
PROVIDERS: PCP Nurse Practitioner Family; Visit Provider Podiatrist Foot & Ankle Surgery
DX: Z46.89 Encounter for fitting and adjustment of other specified devices (principal); M72.2 Plantar fascial fibromatosis
CPT/HCPCS: L3030

== ENCOUNTER → 2021-11-03 13:05 | Outpatient (BNVA) | payer OTHER, MEDICAID, SELFPAY ==
[2021-07-08 10:08] VITALS: BP 158/98; BMI 42.8
== END ==
PROVIDERS: PCP Nurse Practitioner Family; Referring Provider Internal Medicine Critical Care Medicine; Visit Provider Internal Medicine
DX: R73.03 Prediabetes (principal); E66.9 Obesity, unspecified; R00.0 Tachycardia, unspecified; I10 Essential (primary) hypertension; E78.5 Hyperlipidemia, unspecified; Z71.3 Dietary counseling and surveillance; Z68.41 Body mass index [BMI] 40.0-44.9, adult; Z87.891 Personal history of nicotine dependence; Z87.19 Personal history of other diseases of the digestive system
CPT/HCPCS: 99204

== ENCOUNTER → 2021-11-06 11:16 | Outpatient (BNVA) | payer OTHER, MEDICAID, SELFPAY ==
[2021-07-08 10:08] VITALS: BP 158/98; BMI 42.8
== END ==
PROVIDERS: PCP Nurse Practitioner Family; Visit Provider Internal Medicine
DX: E78.5 Hyperlipidemia, unspecified (principal); I10 Essential (primary) hypertension; R00.0 Tachycardia, unspecified; R73.03 Prediabetes
CPT/HCPCS: 82530; 82570

== ENCOUNTER → 2021-12-05 16:02 | Outpatient (BNVA) | payer OTHER, MEDICAID, SELFPAY ==
[2021-07-08 10:08] VITALS: BP 158/98; BMI 42.8
== END ==
PROVIDERS: PCP Nurse Practitioner Family; Visit Provider Nurse Practitioner Women's Health
DX: N91.2 Amenorrhea, unspecified (principal); N95.0 Postmenopausal bleeding
CPT/HCPCS: 82670; 83001; 84146; 84443; 87624

== ENCOUNTER → 2021-12-09 09:35 | Outpatient (BNVA) | payer OTHER, MEDICAID, SELFPAY ==
[2021-07-08 10:08] VITALS: BP 158/98; BMI 42.8
== END ==
PROVIDERS: PCP Nurse Practitioner Family; Visit Provider Nurse Practitioner Women's Health
DX: N91.2 Amenorrhea, unspecified (principal); N83.201 Unspecified ovarian cyst, right side
CPT/HCPCS: 76830

== ENCOUNTER 2021-12-12 14:00 | Outpatient (CLI) | payer OTHER, MEDICAID, SELFPAY ==
[2021-07-08 10:08] VITALS: BP 158/98; BMI 42.8
--- NOTE | 2021-12-12 14:07 | MM_ITS ---
WS: [id number] BILATERAL 3D TOMOSYNTHESIS DIGITAL SCREENING MAMMOGRAPHY WITH CAD CLINICAL INFORMATION: Z12.39 - Encounter for other screening for malignant neop... HISTORY: Screening mammogram. No current complaints. COMPARISON: TECHNIQUE: Bilateral CC and MLO views. FINDINGS: Scattered fibroglandular densities bilaterally. No suspicious focal mass, asymmetry, calcifications, or architectural distortion. No evidence of malignancy. MM/[place] [id number] IMPRESSION: BI-RADS: 1-Negative FOLLOW UP: 1 Year Follow-up Recommend return to annual screening mammography.
== END 2021-12-12 14:01 | disposition home or self-care (01) ==
LOC: RAD 14:02
PROVIDERS: PCP Nurse Practitioner Family; Visit Provider Nurse Practitioner Women's Health
DX: Z12.31 Encounter for screening mammogram for malignant neoplasm of breast (principal)
CPT/HCPCS: 77063; 77067

== ENCOUNTER 2021-12-25 15:52 | Inpatient (IN) | payer OTHER, MEDICAID, SELFPAY ==
[2021-07-08 10:08] VITALS: BP 158/98; BMI 42.8
[2021-12-25] VITALS (10 sets, daily range): BP systolic 121–161; BP diastolic 57–100; PULSE 82–120; RESP 14–24; TEMP 37.4; O2SAT 92–96
--- NOTE | 2021-12-25 16:38 | W.ED.GENADLT ---
HPI - General Adult General: Chief complaint: COVID symptoms Stated complaint: Weakness, Covid +, fever Time Seen by Provider: 12/25/21 16:36 History of Present Illness: Patient is a 51-year-old female with a history of eosinophilic asthma, IBS, hiatal hernia status post John fundoplication who presents the emergency room for evaluation of acute onset of body aches, cough, nausea and fatigue for the last 2 days. Patient was diagnosed with COVID yesterday. Patient reports she will but denies any fever. Patient denies any diarrhea but reports loose stool. Patient has had decreased p.o. intake due to nausea. Patient has no associated chest pain. Patient reports shortness of breath. No other sick contacts at home. Patient has had COVID in the past. Onset:2 days ago Duration:2 days Location:home Severity:moderate Associated symptoms: Reports dyspnea and malaise; Deny chest pain, nausea, rash, palpitations or vomiting Review of Systems Const: Reports: chills, body aches, fatigue and malaise; Denies: fever(s) Eyes: Denies: change in vision ENMT: Denies: mouth pain Card: Denies: chest pain or palpitations Resp: Reports: dyspnea and non-productive cough GI: Denies: abdominal pain, nausea, vomiting or diarrhea : Denies: dysuria Musc: Denies: extremity pain Skin/Breast: Denies: rash or new lesions Neuro: Denies: weakness in extremities Psych: Reports: other (Normal mood) Keaton/Lymph: Denies: easy bruising PFS ED PFSH: Medical History Environmental and seasonal allergies GERD (gastroesophageal reflux disease) Hiatal hernia History of 2019 novel coronavirus disease (COVID-19) Irritable bowel syndrome (IBS) Mixed stress and urge urinary incontinence No pertinent past medical history neghx: dm,dvt/pe PCP: [facility] PTSD (post-traumatic stress disorder) Seasonal allergies Spinal stenosis Tachyarrhythmia Surgical History H/O esophagogastroduodenoscopy H/O excision of mass (03/17/21) abdominal wall mass H/O laparoscopy (~2017) incarcerated -- Johnnie History of carpal tunnel release right History of delivery x 4--1990,1996,2000,2006 History of cholecystectomy (~2015) History of dilation and curettage (~1999) History of thyroidectomy (~2009) Hemithyroidectomy--- has never been able to tolerate medication History of total knee arthroplasty Hx of appendectomy (~1992) Hx of arthroscopic knee surgery 3 surgeries Hx of hernia repair (~02/2021) S/P ACL reconstruction (~2003) right Status post laparoscopic hernia repair (~2012) hiatal Family History Mother Hypertension Stroke Diabetes Hypercholesteremia Sister Hypertension Diabetes Hypercholesteremia Grandmother Hypertension Maternal and Paternal Cancer Paternal --Bladder, liver and brain Ovarian cancer Paternal--dx age unknown Breast cancer Paternal--dx age unknown Brother Cancer Brain tumor Diabetes Hypercholesteremia Hypertension Family/Other No problems noted. Father Hypercholesteremia Denies family history of Colon cancer Uterine cancer Thyroid disease Social History Quit status (tobacco): has quit using tobacco Year quit tobacco: 2001 - 1.5 PPD x 12 Years Former quit date comment: Quit at age 31 Second hand smoke exposure: No Alcohol intake: never Adopted: No Caregiver/support person: Yes Lives independently: Yes Housing: House Marital status: Marital status details: trying to work it out Number of children: 5 Number of grandchildren: 1 Highest education level completed: Some College, No Degree service: Yes (6 years) status: Discharged branch: [employer] Pets and animals: Yes (3) History of recent travel: Yes ([place] to see her son ) Out of state: Yes Sexually active: Yes Cindy/Gnosticist: Taoism Special cindy needs: No Agree to transfusion: Yes Financial difficulty paying for basics: Not Very Hard Physical Exam Const: COMMON NORMALS: alert HENMT: COMMON NORMALS: atraumatic HEAD & SCALP: atraumatic MOUTH: moist mucous membranes abnormal Eye: COMMON NORMALS: EOMs intact bilaterally and conjunctivae normal CONJUNCTIVA: Yes conjunctivae normal Neck/C-Spine: COMMON NORMALS: full ROM and supple Resp: COMMON NORMALS: normal respiratory effort OTHER: +wheezes b/l Cardio: RATE: tachycardic GI: COMMON NORMALS: Soft to palpation and non-tender PALPATION: Yes Soft to palpation OTHER: No focal TTP. NO guarding rebound, guarding, rigidity. No CVA tenderness to percussion. Neg Acosta/Neg McBurney's point tenderness, no suprabupic tenderness to palpation. Extremity: COMMON NORMALS: full ROM Neuro: SENSORIUM/ORIENTATION: Yes alert MOTOR EXAM: No Abnormal motor strength present and Other motor observations present (no focal motor deficits) Psych: COMMON NORMALS: speech normal SPEECH: Yes normal speech MOOD & AFFECT: Yes euthymic mood Course Vital Signs: Vital signs: Vital Signs Temperature 99.3 F 12/25/21 16:01 Pulse Rate 115 H 12/25/21 17:41 Respiratory Rate 24 H 12/25/21 19:31 Blood Pressure 121/57 12/25/21 19:31 Pulse Oximetry 93 12/25/21 19:31 Oxygen Delivery Me thod 12/25/21 19:31 MDM - General Adult Medical Decision Making Patient is a 51-year-old female with a history of eosinophilic asthma, IBS, hiatal hernia status post John fundoplication who presents the emergency room for evaluation of acute onset of body aches, cough, nausea and fatigue for the last 2 days. Physical exam, patient was noted to be satting 90% on room air. Patient was noted to be tachycardic to the low 100s with wheezing. Patient received DuoNeb in the emergency room Solu-Medrol, terbutaline with improvement of breathing symptoms. Patient required 2-3L of NC. Patient continues to have intermittent wheezing. Patient received remdesivir for COVID. CTA chest is negative for PE. Continues to exhibit intermittent wheezing and will require additional breathing treatments and serial observation. Disposition: admission Lab Data : 12/25/21 17:40 12/25/21 17:40 Radiology Impressions Chest X-Ray 12/25/21 17:12 IMPRESSION: No acute infiltrate. Chest CTA 12/25/21 19:00 IMPRESSION: 1. No evidence of pulmonary embolism. 2. Mild basilar atelectasis. 3. Question of minimal peripheral ground-glass opacities which could represent COVID-19 infection as indicated in the history. Laboratory Results WBC 8.6 10^3/uL (4.0-10.0) 12/25/21 17:40 RBC 4.43 10^6/uL (4.1-5.3) 12/25/21 17:40 Hgb 13.6 g/dL (11.5-15.3) 12/25/21 17:40 Hct 39.9 % (37.0-47.0) 12/25/21 17:40 MCV 90.1 fl (81-99) 12/25/21 17:40 MCH 30.7 pg (28.0-34.0) 12/25/21 17:40 MCHC 34.1 g/dL (30.0-36.0) 12/25/21 17:40 RDW 12.7 % (12.1-15.1) 12/25/21 17:40 Plt Count 201 10^3/cmm (130-400) 12/25/21 17:40 MPV 11.5 fL (7.4-10.4) H 12/25/21 17:40 Neut % (Auto) 87.4 % 12/25/21 17:40 Lymph % (Auto) 5.8 % 12/25/21 17:40 Mcintosh % (Auto) 6.2 % 12/25/21 17:40 Eos % (Auto) 0.0 % 12/25/21 17:40 Baso % (Auto) 0.1 % 12/25/21 17:40 Neut # (Auto) 7.53 10^3/uL (1.8-7.7) 12/25/21 17:40 Lymph # (Auto) 0.5 10^3/uL (0.8-4.8) L 12/25/21 17:40 Mcintosh # (Auto) 0.5 10^3/uL (0.2-0.9) 12/25/21 17:40 Eos # (Auto) 0.0 10^3/uL (0.0-0.8) 12/25/21 17:40 Baso # (Auto) 0.0 10^3/uL (0.0-0.1) 12/25/21 17:40 Nucleated RBC % (auto) 0 % 12/25/21 17:40 Nucleated RBCs # 0.0 /100WBC 12/25/21 17:40 Specimen Type Arterial 12/25/21 18:45 Sample Site Radial, left 12/25/21 18:45 ABG pH 7.43 (7.35-7.45) 12/25/21 18:45 ABG pCO2 34.7 mmHg (35-45) L 12/25/21 18:45 ABG pO2 64.5 mmHg (80.0-100.0) L 12/25/21 18:45 ABG HCO3 23.1 mmol/L (22-26) 12/25/21 18:45 ABG Base Excess -0.7 mmol/L (-2.0-2.0) 12/25/21 18:45 Raji Test Pos 12/25/21 18:45 Hematocrit 41.9 % (37-47) 12/25/21 18:45 O2 Delivery Device Room air 12/25/21 18:45 Job Compositor ID Cak 12/25/21 18:45 Sodium 134 mmol/L (136-145) L 12/25/21 17:40 Potassium 4.2 mmol/L (3.5-5.1) 12/25/21 17:40 Chloride 98 mmol/L (98-107) 12/25/21 17:40 Carbon Dioxide 25 mmol/L (22-29) 12/25/21 17:40 Anion Gap 15.2 (5-19) 12/25/21 17:40 BUN 10 mg/dL (6-20) 12/25/21 17:40 Creatinine 0.7 mg/dL (0.5-0.9) 12/25/21 17:40 GFR Calculation 88.6 mL/min (90-130) L 12/25/21 17:40 Glucose 182 mg/dL (65-115) H 12/25/21 17:40 Calculated Osmolality 282 mOsm/kg (285-295) L 12/25/21 17:40 Calcium 8.7 mg/dL (8.5-10.5) 12/25/21 17:40 Total Bilirubin 0.4 mg/dL (0.15-1.2) 12/25/21 17:40 AST 29 U/L (0-32) 12/25/21 17:40 ALT 28 U/L (0-33) 12/25/21 17:40 Alkaline Phosphatase 98 U/L (35-105) 12/25/21 17:40 NT-Pro-B Natriuret Pep 126 pg/mL (0-125) H 12/25/21 17:40 Total Protein 7.2 g/dL (6.6-8.7) 12/25/21 17:40 Albumin 4.5 g/dL (3.5-5.2) 12/25/21 17:40 Globulin 2.7 g/dL (1.3-4.6) 12/25/21 17:40 Lipase 16 U/L (13-60) 12/25/21 17:40 Urine Color Yellow (Yellow) 12/25/21 20:12 Urine Appearance Clear (CLEAR) 12/25/21 20:12 Urine pH 6 (5-7) 12/25/21 20:12 Ur Specific Shirley 1.005 (1.005-1.030) 12/25/21 20:12 Urine Protein Neg (Negative) 12/25/21 20:12 Urine Glucose (UA) Norm (Normal) 12/25/21 20:12 Urine Ketones Negative (Negative) 12/25/21 20:12 Urine Blood Neg (Negative) 12/25/21 20:12 Urine Nitrate Negative (Negative) 12/25/21 20:12 Urine Bilirubin Neg (Negative) 12/25/21 20:12 Urine Urobilinogen Norm mg/dL (Negative) 12/25/21 20:12 Ur Leukocyte Esterase Negative (Negative) 12/25/21 20:12 Imaging Data Other Imaging: Radiologist's impression: [address] [address] [address] Scan Report Signed Patient: Ani Bermudez Unit #: [id number] : 1970 Age/Sex: 51 / F ADM Date: 12/25/21 Loc: ER Room/Bed: Attending Dr: Ordering Provider/Ordering MD: Rola Rabago MD Date of Service: 12/25/21 Procedure(s): CT angio chest PE protcl [id number] Accession Number(s): [id number] Report Number: [id number] PROCEDURE INFORMATION: Exam: CTA Chest With Contrast Exam date and time: 12/25/2021 7:46 PM Age: 51 years old Clinical indication: Cough and shortness of breath; Additional info: Hypoxemia, tachycardia, covid TECHNIQUE: Imaging protocol: Computed tomographic angiography of the chest with contrast. 3D rendering (Not supervised by radiologist): MIP and/or 3D reconstructed images were created by the technologist. Radiation optimization: All CT scans at this facility use at least one of these dose optimization techniques: automated exposure control; mA and/or kV adjustment per patient size (includes targeted exams where dose is matched to clinical indication); or iterative reconstruction. Contrast material: OMNIPAQUE 350; Contrast volume: 95 ml; Contrast route: INTRAVENOUS (IV);? COMPARISON: CT angio chest abdomen pelvis 11/04/2018 2:01 AM RADIATION DOSE METRICS: Total DLP (mGy-cm): 477.97 FINDINGS: Pulmonary arteries: There is no evidence of filling defects within the pulmonary arterial circulation to suggest pulmonary embolism. Aorta: There is no thoracic aortic aneurysm or dissection. Lungs: There is some scarring or subsegmental atelectasis at the left lung base. In some mild dependent atelectasis posteriorly at the right lung base. There is questionably some minimal peripheral ground-glass opacities in the lungs which could be related to the clinical history of COVID-19 infection. Pleural spaces: Unremarkable. No pneumothorax. No pleural effusion. Heart: Unremarkable. No cardiomegaly. No pericardial effusion. Lymph nodes: Unremarkable. No enlarged lymph nodes. Bones/joints: Unremarkable. No acute fracture. Soft tissues: Unremarkable. CT/CT angio chest PE protcl [id number] IMPRESSION: 1. No evidence of pulmonary embolism. 2. Mild basilar atelectasis. 3. Question of minimal peripheral ground-glass opacities which could represent COVID-19 infection as indicated in the history. ? Dictated By: Kolton Hsu Signed By: Kolton Hsu Signed Date/Time: 12/25/212015 DD/ [address] [address] XRay Report Signed Patient: Ani Bermudez Unit #: [id number] : 1970 Age/Sex: 51 / F ADM Date: 12/25/21 Loc: ER Room/Bed: Attending Dr: Ordering Provider/Ordering MD: Rola Rabago MD Date of Service: 12/25/21 Procedure(s): XR chest 1V portable [id number] Accession Number(s): [id number] Report Number: [id number] PROCEDURE INFORMATION: Exam: XR Chest Exam date and time: 12/25/2021 5:15 PM Age: 51 years old Clinical indication: Dyspnea TECHNIQUE: Imaging protocol: Radiologic exam of the chest. Views: 1 view. COMPARISON: CR XR chest 1V portable [id number] 01/25/2020 1:55 PM FINDINGS: Limitations: The study is made with less than full inspiration. Lungs: There is no pulmonary venous congestion. No focal infiltrate is identified. Pleural spaces: Unremarkable. No pleural effusion. No pneumothorax. Heart/Mediastinum: Heart is within normal limits of size. Bones/joints: Unremarkable. XR/XR chest 1V portable [id number] IMPRESSION: No acute infiltrate. ? Dictated By: Kolton Hsu Signed By: Kolton Hsu Signed Date/Time: 12/25/21 174 DD/ 1715 Discharge Plan Discharge Patient Disposition: Admitted As Inpatient Clinical Impression: COVID, Asthma exacerbation, Wheezing, Generalized weakness, Body aches, Hypoxemia Condition: Stable Coding Level of Care Code ED Interactive Video Technician for Chg 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
--- NOTE | 2021-12-25 17:12 | XRR_ITS ---
PROCEDURE INFORMATION: Exam: XR Chest Exam date and time: 12/25/2021 5:15 PM Age: 51 years old Clinical indication: Dyspnea TECHNIQUE: Imaging protocol: Radiologic exam of the chest. Views: 1 view. COMPARISON: CR XR chest 1V portable [id number] 01/25/2020 1:55 PM FINDINGS: Limitations: The study is made with less than full inspiration. Lungs: There is no pulmonary venous congestion. No focal infiltrate is identified. Pleural spaces: Unremarkable. No pleural effusion. No pneumothorax. Heart/Mediastinum: Heart is within normal limits of size. Bones/joints: Unremarkable. XR/XR chest 1V portable [id number] IMPRESSION: No acute infiltrate.
[2021-12-25] MEDS: ipratropium-albuterol 3 mL Neb INHALATION ×3 (17:26→17:27)
[2021-12-25 17:46] LABS: Basophils % 0.1 %; Hematocrit 39.9 % (37.0-47.0); Hemoglobin 13.6 g/dL (11.5-15.3); Lymphocytes # 0.5 10^3/uL (0.8-4.8); Lymphocytes % 5.8 %; Mean Corpuscular HGB Conc 34.1 g/dL (30.0-36.0); Mean Corpuscular Hemoglobin 30.7 pg (28.0-34.0); Mean Corpuscular Volume 90.1 fl (81-99); Mean Platelet Volume 11.5 fL (7.4-10.4); Monocytes # 0.5 10^3/uL (0.2-0.9); Monocytes % 6.2 %; Neutrophils # 7.53 10^3/uL (1.8-7.7); Neutrophils % 87.4 %; Nucleated Red Blood Cells % 0 %; Platelet Count 201 10^3/cmm (130-400); Red Blood Count 4.43 10^6/uL (4.1-5.3); Red Cell Distribution Width 12.7 % (12.1-15.1); White Blood Count 8.6 10^3/uL (4.0-10.0)
[2021-12-25] MEDS: sodium chloride 0.9% 1,000 ML 999 ML IV (17:46)
[2021-12-25] MEDS: terbutaline 1 mg/mL INJ 0.25 MG SUBCUT (17:47)
[2021-12-25 18:24] LABS: Alanine Aminotransferase 28 U/L (0-33); Albumin Level 4.5 g/dL (3.5-5.2); Alkaline Phosphatase 98 U/L (35-105); Anion Gap 15.2 (5-19); Aspartate Amino Transferase 29 U/L (0-32); Blood Urea Nitrogen 10 mg/dL (6-20); Calcium 8.7 mg/dL (8.5-10.5); Carbon Dioxide 25 mmol/L (22-29); Chloride 98 mmol/L (98-107); Globulin 2.7 g/dL (1.3-4.6); Glomerular Filtration Rate 88.6 mL/min (90-130); Glucose 182 mg/dL (65-115); Lipase 16 U/L (13-60); NT Pro B Type Natriuretic Pept 126 pg/mL (0-125); Osmolality Calculated 282 mOsm/kg (285-295); Potassium 4.2 mmol/L (3.5-5.1); Sodium 134 mmol/L (136-145); Total Bilirubin 0.4 mg/dL (0.15-1.2); Total Protein 7.2 g/dL (6.6-8.7)
[2021-12-25 18:55] LABS: ABG PCO2 34.7 mmHg (35-45); ABG PH Result 7.43 (7.35-7.45); Arterial Blood Gas Hematocrit 41.9 % (37-47); Base Excess ABG -0.7 mmol/L (-2.0-2.0); Blood Gas Allen Test Pos; Blood Gas Operator Identificat CAK; Blood Gas Sample Site Radial, left; Blood Gas Sample Type Arterial; HCO3 ABG 23.1 mmol/L (22-26); Oxygen Device ROOM AIR; PO2 ABG 64.5 mmHg (80.0-100.0)
--- NOTE | 2021-12-25 19:00 | CTR_ITS ---
PROCEDURE INFORMATION: Exam: CTA Chest With Contrast Exam date and time: 12/25/2021 7:46 PM Age: 51 years old Clinical indication: Cough and shortness of breath; Additional info: Hypoxemia, tachycardia, covid TECHNIQUE: Imaging protocol: Computed tomographic angiography of the chest with contrast. 3D rendering (Not supervised by radiologist): MIP and/or 3D reconstructed images were created by the technologist. Radiation optimization: All CT scans at this facility use at least one of these dose optimization techniques: automated exposure control; mA and/or kV adjustment per patient size (includes targeted exams where dose is matched to clinical indication); or iterative reconstruction. Contrast material: OMNIPAQUE 350; Contrast volume: 95 ml; Contrast route: INTRAVENOUS (IV); COMPARISON: CT angio chest abdomen pelvis 11/04/2018 2:01 AM RADIATION DOSE METRICS: Total DLP (mGy-cm): 477.97 FINDINGS: Pulmonary arteries: There is no evidence of filling defects within the pulmonary arterial circulation to suggest pulmonary embolism. Aorta: There is no thoracic aortic aneurysm or dissection. Lungs: There is some scarring or subsegmental atelectasis at the left lung base. In some mild dependent atelectasis posteriorly at the right lung base. There is questionably some minimal peripheral ground-glass opacities in the lungs which could be related to the clinical history of COVID-19 infection. Pleural spaces: Unremarkable. No pneumothorax. No pleural effusion. Heart: Unremarkable. No cardiomegaly. No pericardial effusion. Lymph nodes: Unremarkable. No enlarged lymph nodes. Bones/joints: Unremarkable. No acute fracture. Soft tissues: Unremarkable. CT/CT angio chest PE protcl [id number] IMPRESSION: 1. No evidence of pulmonary embolism. 2. Mild basilar atelectasis. 3. Question of minimal peripheral ground-glass opacities which could represent COVID-19 infection as indicated in the history.
--- NOTE | 2021-12-25 19:12 | PC.NURSE ---
Pt.'s family came to nursing station to ask if we could help the patient roll from her right side over to their left. Pt. states that she has no problems moving normally but the covid is making her weak and her body hurts. Pt. states that she was diagnosed 2 days ago, but it is getting worse.
--- NOTE | 2021-12-25 19:16 | PC.NURSE ---
Pt. requests something for a headache. Dr. Rabago notified.
[2021-12-25] MEDS: iohexol 350 mg/mL 100 mL Btl IV (19:50)
[2021-12-25] MEDS: ondansetron 2 mg/ML SDV 2 mL 4 MG IVP (20:13)
[2021-12-25] MEDS: acetaminophen 500 mg Tablet PO (20:13)
[2021-12-25 20:19] LABS: Add Urine Microscopic? NO; Charge for UA Resulting for Rev
[2021-12-25 20:25] LABS: Urine Appearance Clear (CLEAR); Urine Color Yellow (Yellow)
[2021-12-25 20:26] LABS: Bilirubin Urine Neg (Negative); Blood Urine Neg (Negative); Glucose Urine UA Norm (Normal); Ketones Urine Negative (Negative); Leukocyte Esterase Urine Negative (Negative); Nitrate Urine Negative (Negative); Protein Urine Neg (Negative); Specific Gravity, Urine 1.005 (1.005-1.030); Urobilinogen Urine Norm (Negative); pH Urine 6 (5-7)
--- NOTE | 2021-12-25 21:07 | P.HP_ITS ---
Providers/Chief Complaint Primary Care Provider: TOBI Henderson Chief Complaint: Weakness, Covid +, fever History of Present Illness Ani Bermudez is a 51 year old female who carries history of eosinophilic asthma follows up with Dr. Dejesus, presented today with chief complaint of worsening shortness of breath. Her symptoms started 2 days ago with worsening of shortness of breath she also noticed low-grade fever, and last 48 hours she has experienced significant worsening of her weakness along shortness of breath. She does not use any oxygen at home. No chest pain, diarrhea or constipation, she has history of fundoplication, she has been experiencing dry heaves stating that if she vomits that can rupture her abdomen. In the ER she was diagnosed with COVID-19 and due to hypoxia he was actively wheezing required IV steroids at the time of evaluation there was no active wheezing she was on 3 L, She is extremely weak and lethargic I requested D-dimer We will give her Decadron, remdesivir and start her on inhaled steroids Her ABG is towards alkalotic side which is anticipated Review of Systems Const: Reports: fever(s), chills, body aches, fatigue and diaphoresis Eyes: Denies: change in vision ENMT: Denies: throat pain Card: Reports: dyspnea on exertion; Denies: chest pain Resp: Reports: dyspnea, productive cough and wheezing GI: Reports: nausea; Denies: abdominal pain : Denies: flank pain Musc: Denies: neck pain Skin/Breast: Denies: rash Neuro: Denies: headache(s) Psych: Reports: anxiety Endo: Denies: polyuria Keaton/Lymph: Denies: easy bruising All/Imm: Denies: urticaria Medications/Allergies Home Medications Medication Instructions Recorded Confirmed Last Taken Type azelastine 137 mcg (0.1 %) nasal 1 spray intranasal BID 90 days #30 11/10/19 12/05/21 01/24/20 Rx spray aerosol mL fluticasone propionate 50 1 spray intranasal Q12H 90 days 11/10/19 12/05/21 01/25/20 Rx mcg/actuation nasal #18.2 mL spray,suspension (Flonase Allergy Relief) benzonatate 100 mg capsule 1 mg PO TID 03/11/21 12/05/21 Unknown History ondansetron HCl 4 mg tablet 4 mg PO Q6H PRN nausea and 03/17/21 12/05/21 Unknown Rx (Zofran) vomiting #20 tabs albuterol sulfate 2.5 mg (3 mL) inhalation Q4H #75 mL 03/26/21 12/05/21 Unknown Rx albuterol sulfate 90 mcg/actuation 2 puff inhalation Q6H PRN 03/26/21 12/05/21 Unknown Rx aerosol inhaler (ProAir HFA) shortness of breath or wheezing #8.5 grams pantoprazole 40 mg tablet,delayed 40 mg PO DAILY 30 days #30 tabs 03/26/21 12/05/21 Unknown Rx release (Protonix) Custom Molded Orthotics #1 ea 06/30/21 12/05/21 Unknown Rx epinephrine 0.3 mg/0.3 mL 0.3 mg IM Q10M PRN 07/02/21 12/05/21 Unknown History injection, auto-injector montelukast 10 mg tablet 10 mg PO QPM 30 days #30 tabs 07/07/21 12/05/21 Unknown Rx pravastatin 20 mg tablet 20 mg PO DAILY 30 days #30 tabs 07/07/21 12/05/21 Unknown Rx Sole Supports #1 ea 07/30/21 12/05/21 Unknown Rx metoprolol tartrate 25 mg tablet 25 mg PO BID 30 days #60 tabs 08/05/21 12/05/21 Unknown Rx budesonide-formoterol HFA 160 2 puff inhalation Q12H 30 days 08/11/21 12/05/21 Unknown Rx mcg-4.5 mcg/actuation aerosol #10.2 grams inhaler (Symbicort) tiotropium bromide 18 mcg capsule 1 cap inhalation DAILY 30 days #60 08/11/21 12/05/21 Unknown Rx with inhalation device (Spiriva inhalations with HandiHaler) benralizumab 30 mg/mL subcutaneous 30 mg SUBCUT .Every 8 weeks 3 08/12/21 12/05/21 Unknown Rx auto-injector (Fasenra Pen) doses #3 mL Night Splint #1 ea 09/29/21 12/05/21 Unknown Rx semaglutide (Ozempic) 0.25 mg (0.2 mL) SUBCUT .weekly 11/20/21 12/05/21 Unknown Rx #1.5 mL semaglutide (Ozempic) 0.5 mg (0.4 mL) SUBCUT .weekly 11/20/21 12/05/21 Unknown Rx #1.5 mL Allergies Allergy/AdvReac Type Severity Reaction Status Date / Time adhesive tape Allergy Severe ALGY-Bliste Verified 12/05/21 14:48 r levothyroxine sodium Allergy Unknown Vomiting/Di Verified 12/05/21 14:48 arrhea morphine Allergy Unknown itching Verified 12/05/21 14:48 ranitidine Allergy Unknown Vomiting/Di Verified 12/05/21 14:48 arrhea thyroid, pork Allergy Unknown Vomiting/Di Verified 12/05/21 14:48 [From [place] Thyroid] arrhea tramadol Allergy Unknown Itching Verified 12/05/21 14:48 PFSH Acute PFSH: Medical History Environmental and seasonal allergies GERD (gastroesophageal reflux disease) Hiatal hernia History of 2019 novel coronavirus disease (COVID-19) Irritable bowel syndrome (IBS) Mixed stress and urge urinary incontinence No pertinent past medical history neghx: dm,dvt/pe PCP: [facility] PTSD (post-traumatic stress disorder) Seasonal allergies Spinal stenosis Tachyarrhythmia Surgical History H/O esophagogastroduodenoscopy H/O excision of mass (03/17/21) abdominal wall mass H/O laparoscopy (~2017) incarcerated -- [facility] History of carpal tunnel release right History of delivery x 4--1990,1996,2000,2006 History of cholecystectomy (~2015) History of dilation and curettage (~1999) History of thyroidectomy (~2009) Hemithyroidectomy--- has never been able to tolerate medication History of total knee arthroplasty Hx of appendectomy (~1992) Hx of arthroscopic knee surgery 3 surgeries Hx of hernia repair (~02/2021) S/P ACL reconstruction (~2003) right Status post laparoscopic hernia repair (~2012) hiatal Family History Mother Hypertension Stroke Diabetes Hypercholesteremia Sister Hypertension Diabetes Hypercholesteremia Grandmother Hypertension Maternal and Paternal Cancer Paternal --Bladder, liver and brain Ovarian cancer Paternal--dx age unknown Breast cancer Paternal--dx age unknown Brother Cancer Brain tumor Diabetes Hypercholesteremia Hypertension Family/Other No problems noted. Father Hypercholesteremia Denies family history of Colon cancer Uterine cancer Thyroid disease Social History Quit status (tobacco): has quit using tobacco Year quit tobacco: 2001 - 1.5 PPD x 12 Years Former quit date comment: Quit at age 31 Second hand smoke exposure: No Alcohol intake: never Adopted: No Caregiver/support person: Yes Lives independently: Yes Housing: House Marital status: Marital status details: trying to work it out Number of children: 5 Number of grandchildren: 1 Highest education level completed: Some College, No Degree service: Yes (6 years) status: Discharged branch: [employer] Pets and animals: Yes (3) History of recent travel: Yes ([place] to see her son ) Out of state: Yes Sexually active: Yes Cindy/Rastafari: Rastafari Special cindy needs: No Agree to transfusion: Yes Financial difficulty paying for basics: Not Very Hard Vitals/I&O/Wt Last Vital Signs Temp 99.3 F 12/25/21 16:01 Pulse 115 H 12/25/21 17:41 Resp 24 H 12/25/21 19:31 BP 121/57 12/25/21 19:31 Pulse Ox 96 12/25/21 21:04 O2 Del Method 12/25/21 21:04 O2 Flow Rate 3 12/25/21 21:04 Physical Exam Narrative: Morbidly obese female Currently in left lateral position On 3 L I did not appreciate any wheezing Bilateral breath sounds No active stridor No active use of respiratory sensory muscles She is laying flat Abdomen soft Distended Will be seen Looks euvolemic No signs of swelling of lower legs EOMI, PERRLA at the bedside S1, S2 sinus tachycardia Data : 12/25/21 17:40 12/25/21 17:40 A&P Assessment and plan (1) COVID: Status: Acute (2) Asthma exacerbation: Status: Acute (3) Wheezing: Status: Acute (4) Generalized weakness: Status: Acute (5) Body aches: Status: Acute (6) Hypoxemia: Status: Acute (7) Obesity: Status: Acute Plan Asthma exacerbation due to COVID-19 Acute hypoxia No conversational dyspnea Currently on 3 L I will start her on empirical antibiotic coverage along IV Decadron Start remdesivir I will continue montelukast Is also taking monoclonal antibody every 8 weeks, last dose was 2 weeks ago Follows up with Dr. Dejesus Currently compensating No active wheezing at the time evaluation with bilateral airflow She is not struggling to breathe no use of respiratory sensory muscles I will admit to [facility] for now but pressure was still low to admit to ICU she shows any signs of decompensation Isolation needed for next 3 days Check MRSA PCR, Check sputum culture I will request D-dimer BNP is not high Procalcitonin unremarkable CTA ruled out PE showed groundglass opacities Patient is full code I will keep her on consistent carb diet We will keep insulin in case for hyperglycemia Check A1c level DVT prophylaxis with Lovenox Attestations Medical Necessity Statement*: Anticipating more than 2 midnights for management of COVID and asthma exacerbation Time Spent in Patient Care: 40 Coding Level of Care Code Acute 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
[2021-12-25] MEDS: remdesivir 200 MG in sodium chloride 0.9% (100 ml) 60 ML 100 MG IV (21:38)
[2021-12-25 21:50] LABS: Procalcitonin 0.13 ng/mL (0-0.5)
--- NOTE | 2021-12-25 22:19 | PC.NURSE ---
Addendum entered by Karina Orourke RN 12/25/21 23:58: Patient educated on PRN Tylenol order and verbalized understanding. Original Note: Patient c/o back pain 09/02. Patient states at home she takes Tylenol and Alieve for pain.
[2021-12-25] MEDS: enoxaparin 40 mg/0.4 mL Syringe SUBCUT (22:20)
[2021-12-25] MEDS: metoprolol tartrate 50 mg Tablet PO (22:20)
[2021-12-25] MEDS: montelukast sodium 10 mg Tablet PO (22:20)
[2021-12-25 22:27] LABS: D Dimer 0.45 ug/mIFEU (0-0.59)
[2021-12-25 22:45] LABS: Vitamin B12 365 pg/mL (232-1245)
[2021-12-26] VITALS (8 sets, daily range): BP systolic 111–161; BP diastolic 65–92; PULSE 71–86; RESP 16–18; TEMP 36.7–36.9; O2SAT 93–98
[2021-12-26 02:40] LABS: Basophils % 0.2 %; Hematocrit 40.6 % (37.0-47.0); Hemoglobin 13.4 g/dL (11.5-15.3); Lymphocytes # 0.4 10^3/uL (0.8-4.8); Lymphocytes % 6.2 %; Mean Corpuscular Hemoglobin 30.2 pg (28.0-34.0); Mean Corpuscular Volume 91.4 fl (81-99); Mean Platelet Volume 12.2 fL (7.4-10.4); Monocytes # 0.1 10^3/uL (0.2-0.9); Monocytes % 1.2 %; Neutrophils # 5.91 10^3/uL (1.8-7.7); Neutrophils % 91.8 %; Nucleated Red Blood Cells % 0 %; Platelet Count 208 10^3/cmm (130-400); Red Blood Count 4.44 10^6/uL (4.1-5.3); Red Cell Distribution Width 12.8 % (12.1-15.1); White Blood Count 6.4 10^3/uL (4.0-10.0)
[2021-12-26 03:10] LABS: Blood Urea Nitrogen 7 mg/dL (6-20); C Reactive Protein 71.8 mg/L (0.0-4.9); Calcium 8.6 mg/dL (8.5-10.5); Carbon Dioxide 23 mmol/L (22-29); Chloride 101 mmol/L (98-107); Glomerular Filtration Rate 88.6 mL/min (90-130); Glucose 214 mg/dL (65-115); Magnesium 1.5 mg/dL (1.7-2.3); Osmolality Calculated 288 mOsm/kg (285-295); Phosphorus 3.3 mg/dL (2.5-4.5); Sodium 137 mmol/L (136-145)
[2021-12-26] MEDS: acetaminophen 500 mg Tablet PO ×3 (03:48→22:11)
[2021-12-26 04:58] LABS: ABG PH Result 7.39 (7.35-7.45); Arterial Blood Gas Hematocrit 45.8 % (37-47); Base Excess ABG -1.2 mmol/L (-2.0-2.0); Blood Gas Allen Test Pos; Blood Gas Operator Identificat JB; Blood Gas Sample Site Radial, right; Blood Gas Sample Type Arterial; HCO3 ABG 23.6 mmol/L (22-26)
[2021-12-26 04:59] LABS: Oxygen Device AMBU
[2021-12-26 05:37] LABS: Adenovirus Not Detected (NOT DETECT); Chlamydia Pneumoniae Not Detected (NOT DETECT); Coronavirus 229E,HKU1,NL63,OC4 Not Detected (NOT DETECT); Human Metapneumovirus Not Detected (NOT DETECT); Human Rhinovirus/Enterovirus Not Detected (NOT DETECT); Influenza A Not Detected (NOT DETECT); Influenza A H1 Not Detected (NOT DETECT); Influenza A H1-2009 Not Detected (NOT DETECT); Influenza A H3 Not Detected (NOT DETECT); Influenza B Not Detected (NOT DETECT); Mycoplasma Pneumoniae Not Detected (NOT DETECT); Parainfluenza Virus Type 1 Not Detected (NOT DETECT); Parainfluenza Virus Type 2 Not Detected (NOT DETECT); Parainfluenza Virus Type 3 Not Detected (NOT DETECT); Parainfluenza Virus Type 4 Not Detected (NOT DETECT); Respiratory Syncytial Virus A Not Detected (NOT DETECT); Respiratory Syncytial Virus B Not Detected (NOT DETECT); SARS-COV-2 Detected (NOT DETECT)
[2021-12-26 06:47] LABS: Glucose Point of Care 183 mg/dL (70-110)
[2021-12-26] MEDS: insulin lispro 100 unit/1 mL SUBCUT ×3 (09:15→17:48)
[2021-12-26] MEDS: sennosides-docusate Tablet 1 TAB PO (09:17)
[2021-12-26] MEDS: azithromycin 250 mg Tablet 500 MG PO (09:19)
[2021-12-26] MEDS: metoprolol tartrate 50 mg Tablet PO ×2 (09:19→21:16)
[2021-12-26] MEDS: dexamethasone 10 mg/mL INJ 6 MG IVP (09:19)
[2021-12-26] MEDS: zinc gluconate 50 mg Tablet PO (09:19)
[2021-12-26] MEDS: ascorbic acid 500 mg Tablet PO (09:19)
[2021-12-26] MEDS: cefTRIAXone 1,000 MG in sodium chloride 0.9% (plus) 50 ML 100 MG IV (09:22)
[2021-12-26] MEDS: magnesium sulfate premix 2 GM/50 ML PIGGYBACK IV (09:23)
[2021-12-26] MEDS: budesonide 0.5 mg/2 mL Neb INHALATION ×2 (09:50→20:47)
[2021-12-26] MEDS: ipratropium-albuterol 3 mL Neb INHALATION (09:50)
--- NOTE | 2021-12-26 09:58 | PC.CHAP ---
Pastoral Care Encounter/Spiritual Assessment Type of Contact [] Declined spider assembler visit [] Patient/Family/Request visit [] Outpatient visit [] Follow-up visit [] Physician referral [] Code/Alert [x] Routine visit [] Staff referral [] Actively dying [] Patient sleeping [] Family support [] [] Out of room [] Palliative care [] [] Receiving care in room [] Pre-surgical visit [] Trauma [] Long length of stay [] ICU visit [x] Other:covid Relational/Emotional Strength [] Patient feels connected with others/family/visitors/staff [] Distress [] Loneliness/isolation [] Abandonment Spirituality of Patient [] Person of Cindy [] Attends Religion of their Cindy [] Believes in Prayer [] Reads Bible or Zoroastrian materials [] There are Spiritual issues to be addressed Tube Heater Interventions [x] Prayer [] Active listening [] Non-anxious presence [] Spiritual/emotional support [] Crisis/trauma care [] Spiritual counseling [] Bereavement support [] Provided bereavement packet [] Provided Bible/devotional materials [] Provided toy/stuffed animal, coloring book to patient or family member [] Provided Communion [] Anointing/Winters [] Salvation [x] Completed spiritual assessment [] Other: Impact on Illness or Injury [] Angry [] Fearful [] Anxious [] Often cries [] Exhaustion [] Unable to work [] Unable to attend pentecostal [] Unable to walk/stand [] Unable to read [] Unable to drive [] Unable to eat/drink [] Unable to sleep [] Unable to be with family [] Patient intubated [] Other: Summary Time spent with patient
[2021-12-26 12:21] LABS: Glucose Point of Care 221 mg/dL (70-110)
[2021-12-26 17:07] LABS: Glucose Point of Care 197 mg/dL (70-110)
[2021-12-26] MEDS: montelukast sodium 10 mg Tablet PO (17:47)
--- NOTE | 2021-12-26 19:30 | PM.PN ---
Subjective Subjective: She is overall having malaise. Cough, dyspnea. Does not normally use nasal cannula oxygen. Uses CPAP for BRIAN. Denies chest pain or pressure, no headache, nausea vomiting or diarrhea. Vitals/I&O/Wt Last Vital Signs Temp 98.2 F 12/26/21 12:00 Pulse 71 12/26/21 16:00 Resp 17 12/26/21 16:00 BP 123/74 12/26/21 16:00 Pulse Ox 98 12/26/21 16:00 O2 Del Method 12/26/21 16:00 O2 Flow Rate 3 12/26/21 09:45 12/26/21 12/26/21 12/26/21 06:59 14:59 22:59 Intake Total 100 / 100 240 / 340 Balance 100 / 100 240 / 340 Weight last 48 hrs Weight 127.278 kg Physical Exam Narrative: Sleeping, wakes up easily to voice. CPAP in place. Const: COMMON NORMALS: patient oriented x3 and alert GENERAL APPEARANCE: cooperative NUTRITIONAL APPEARANCE: obese ORIENTATION/CONSCIOUSNESS: Yes awake HENMT: COMMON NORMALS: oropharynx normal Neck/C-Spine: COMMON NORMALS: no JVD Resp: COMMON NORMALS: normal respiratory effort and clear to auscultation bilaterally AUSCULTATION: clear to auscultation bilaterally Cardio: COMMON NORMALS: no JVD, regular rhythm, S1 normal heart sound present, S2 normal heart sound present and No murmurs present (Cardio) RHYTHM: regular rhythm HEART SOUNDS: S1 normal heart sound present and S2 normal heart sound present GI: COMMON NORMALS: Normal to inspection, nondistended, normoactive bowel sounds present, Soft to palpation and non-tender PALPATION: Yes Soft to palpation Extremity: COMMON NORMALS: no joint enlargement and no pedal edema Neuro: COMMON NORMALS: patient oriented x3 and moves all extremities SENSORIUM/ORIENTATION: Yes alert Skin: COMMON NORMALS: no rashes or lesions noted GENERAL SKIN EXAM: no rashes or lesions noted Data : 12/26/21 01:46 12/26/21 01:46 Micro: Microbiology 12/25/21 22:30 MRSA Culture - Final Nose 12/26/21 03:48 Bacterial Antigens - Final Urine,Voided A&P Assessment and plan (1) COVID: Severe COVID-19 pneumonia with new hypoxia. Not normally requiring oxygen support. Continue Decadron, remdesivir. Continue DVT prophylaxis with Lovenox. Antitussives as needed. She is also on empiric antibiotic. Albuterol as needed. Budesonide inhalation. Continue oxygen support, monitor oxygenation, wean down oxygen as tolerating. CTA without PE. Follow-up D-dimer. Urine bacterial antigens negative except Legionella. Check Legionella. MRSA PCR negative. Status: Acute (2) Asthma exacerbation: Continue treatment of COVID-pneumonia as above. IV steroid. Continue albuterol inhaler, budesonide. Montelukast. Status: Acute (3) Wheezing: Status: Acute (4) Generalized weakness: Status: Acute (5) Body aches: Status: Acute (6) Hypoxemia: Status: Acute (7) Obesity: Status: Acute Attestations Medical Necessity Statement*: Continue admission for assessment management of severe COVID-19. Coding Level of Care Code Acute Manager Discovery for [facility] Fwd Diagnoses COVID U07.1 Asthma exacerbation J45.901 Wheezing R06.2 Generalized weakness R53.1 Body aches R52 Hypoxemia R09.02 Obesity E66.9
[2021-12-26 20:32] LABS: Glucose Point of Care 195 mg/dL (70-110)
[2021-12-26] MEDS: remdesivir 100 MG in sodium chloride 0.9% (100 ml) 100 ML IV (21:16)
[2021-12-26] MEDS: benzonatate 100 mg Capsule 200 MG PO (21:16)
[2021-12-26] MEDS: enoxaparin 40 mg/0.4 mL Syringe SUBCUT (21:16)
[2021-12-27] VITALS (9 sets, daily range): BP systolic 116–148; BP diastolic 72–88; PULSE 67–81; RESP 15–20; TEMP 36.5–37; O2SAT 94–98
[2021-12-27] MEDS: acetaminophen 500 mg Tablet PO ×3 (04:07→17:18)
[2021-12-27 05:04] LABS: Basophils % 0.3 %; Hematocrit 39.3 % (37.0-47.0); Lymphocytes # 1.8 10^3/uL (0.8-4.8); Lymphocytes % 16.4 %; Mean Corpuscular HGB Conc 33.1 g/dL (30.0-36.0); Mean Corpuscular Hemoglobin 30.7 pg (28.0-34.0); Mean Corpuscular Volume 92.9 fl (81-99); Mean Platelet Volume 11.8 fL (7.4-10.4); Monocytes # 0.9 10^3/uL (0.2-0.9); Monocytes % 8.7 %; Neutrophils # 7.97 10^3/uL (1.8-7.7); Neutrophils % 74.1 %; Nucleated Red Blood Cells % 0 %; Platelet Count 209 10^3/cmm (130-400); Red Blood Count 4.23 10^6/uL (4.1-5.3); Red Cell Distribution Width 13.1 % (12.1-15.1); White Blood Count 10.8 10^3/uL (4.0-10.0)
[2021-12-27 05:20] LABS: D Dimer 0.51 ug/mIFEU (0-0.59)
[2021-12-27 05:27] LABS: Alanine Aminotransferase 26 U/L (0-33); Albumin Level 3.9 g/dL (3.5-5.2); Alkaline Phosphatase 80 U/L (35-105); Anion Gap 14.1 (5-19); Aspartate Amino Transferase 14 U/L (0-32); Blood Urea Nitrogen 17 mg/dL (6-20); Calcium 8.3 mg/dL (8.5-10.5); Carbon Dioxide 25 mmol/L (22-29); Chloride 104 mmol/L (98-107); Glomerular Filtration Rate 88.6 mL/min (90-130); Glucose 150 mg/dL (65-115); Magnesium 2.1 mg/dL (1.7-2.3); Osmolality Calculated 292 mOsm/kg (285-295); Potassium 4.1 mmol/L (3.5-5.1); Sodium 139 mmol/L (136-145); Total Bilirubin 0.2 mg/dL (0.15-1.2); Total Protein 6.9 g/dL (6.6-8.7)
[2021-12-27 06:22] LABS: Glucose Point of Care 131 mg/dL (70-110)
[2021-12-27] MEDS: ipratropium-albuterol 3 mL Neb INHALATION ×2 (08:34→19:54)
[2021-12-27] MEDS: budesonide 0.5 mg/2 mL Neb INHALATION ×2 (08:34→19:54)
[2021-12-27] MEDS: sennosides-docusate Tablet 1 TAB PO (09:04)
[2021-12-27] MEDS: zinc gluconate 50 mg Tablet PO (09:04)
[2021-12-27] MEDS: dexamethasone 10 mg/mL INJ 6 MG IVP (09:04)
[2021-12-27] MEDS: cefTRIAXone 1,000 MG in sodium chloride 0.9% (plus) 50 ML 100 MG IV (09:04)
[2021-12-27] MEDS: azithromycin 250 mg Tablet 500 MG PO (09:04)
[2021-12-27] MEDS: ascorbic acid 500 mg Tablet PO (09:04)
[2021-12-27] MEDS: benzonatate 100 mg Capsule 200 MG PO ×3 (09:15→21:56)
[2021-12-27] MEDS: metoprolol tartrate 50 mg Tablet PO ×2 (09:15→21:43)
[2021-12-27 11:01] LABS: Glucose Point of Care 167 mg/dL (70-110)
[2021-12-27] MEDS: insulin lispro 100 unit/1 mL SUBCUT ×2 (11:06→17:18)
--- NOTE | 2021-12-27 11:16 | P.PN_ITS ---
Subjective Subjective: She is still having quite a bit of cough, today she is also requiring 2 L of nasal cannula oxygen. Not normally on oxygen at home. She is feeling miserable. Still with a headache. Weak. No nausea vomiting or diarrhea. Vitals/I&O/Wt Last Vital Signs Temp 97.9 F 12/27/21 07:58 Pulse 78 12/27/21 08:37 Resp 16 12/27/21 08:37 BP 137/88 12/27/21 07:58 Pulse Ox 98 12/27/21 08:37 O2 Del Method 12/27/21 08:37 O2 Flow Rate 2 12/26/21 20:49 12/26/21 12/27/21 12/27/21 22:59 06:59 14:59 Intake Total 740 / 840 380 / 1220 170 / 170 Balance 740 / 840 380 / 1220 170 / 170 Weight last 48 hrs Weight 127.278 kg Physical Exam Const: COMMON NORMALS: patient oriented x3 and alert GENERAL APPEARANCE: cooperative NUTRITIONAL APPEARANCE: obese ORIENTATION/CONSCIOUSNESS: Yes awake HENMT: COMMON NORMALS: oropharynx normal Neck/C-Spine: COMMON NORMALS: no JVD Resp: COMMON NORMALS: normal respiratory effort AUSCULTATION: wheezes (Mild wheezes with cough) Cardio: COMMON NORMALS: no JVD, regular rhythm, S1 normal heart sound present, S2 normal heart sound present and No murmurs present (Cardio) RHYTHM: regular rhythm HEART SOUNDS: S1 normal heart sound present and S2 normal heart sound present GI: COMMON NORMALS: Normal to inspection, nondistended, normoactive bowel sounds present, Soft to palpation and non-tender PALPATION: Yes Soft to palpation Extremity: COMMON NORMALS: no joint enlargement and no pedal edema Neuro: COMMON NORMALS: patient oriented x3 and moves all extremities SENSORIUM/ORIENTATION: Yes alert Skin: COMMON NORMALS: no rashes or lesions noted GENERAL SKIN EXAM: no ra shes or lesions noted Data : 12/27/21 04:55 12/27/21 04:55 Micro: Microbiology 12/26/21 Unknown Legionella Urinary Antigen - Final Urine,Clean Catch 12/25/21 22:30 MRSA Culture - Final Nose 12/26/21 03:48 Bacterial Antigens - Final Urine,Voided A&P Assessment and plan (1) COVID: Possibly some worsening today, malaise, weak, still persistent cough, today is requiring a bit of oxygen at 2 L nasal cannula. Headache. Continue Decadron, remdesivir. DVT prophylaxis with Lovenox. Continue doses as needed. Tylenol as needed for headache. She is also on empiric antibiotic. Albuterol as needed. Budesonide inhalation. Continue oxygen support, monitor oxygenation, wean down oxygen as tolerating. CTA without PE. D-dimer normal. Follow. Urine bacterial antigens including Legionella. MRSA PCR negative. Status: Acute (2) Asthma exacerbation: Continue treatment of COVID-pneumonia as above. IV steroid. Continue albuterol inhaler, budesonide. Montelukast. Status: Acute (3) Wheezing: Status: Acute (4) Generalized weakness: Status: Acute (5) Body aches: Status: Acute (6) Hypoxemia: Status: Acute (7) Obesity: Status: Acute Attestations Medical Necessity Statement*: Continue admission for assessment of management of severe COVID-19. Coding Level of Care Code Acute Senior Underwriting Assistant for [facility] Diagnoses COVID U07.1 Asthma exacerbation J45.901 Wheezing R06.2 Generalized weakness R53.1 Body aches R52 Hypoxemia R09.02 Obesity E66.9
[2021-12-27 17:00] LABS: Glucose Point of Care 218 mg/dL (70-110)
[2021-12-27] MEDS: montelukast sodium 10 mg Tablet PO (17:18)
[2021-12-27 20:40] LABS: Glucose Point of Care 168 mg/dL (70-110)
[2021-12-27] MEDS: enoxaparin 40 mg/0.4 mL Syringe SUBCUT (21:43)
[2021-12-27] MEDS: remdesivir 100 MG in sodium chloride 0.9% (100 ml) 100 ML IV (21:44)
[2021-12-28] VITALS: BP 130/72; PULSE 68; RESP 18; TEMP 36.6; O2SAT 96
[2021-12-28 04:00] VITALS: BP 135/92; PULSE 66; RESP 19; TEMP 36.6; O2SAT 98
[2021-12-28] MEDS: saline nasal spray 44mL Btl 1 SPRAY NASAL (04:02)
[2021-12-28 06:39] LABS: Basophils % 0.2 %; Hematocrit 39.7 % (37.0-47.0); Lymphocytes % 21.5 %; Mean Corpuscular HGB Conc 32.7 g/dL (30.0-36.0); Mean Corpuscular Hemoglobin 30.3 pg (28.0-34.0); Mean Corpuscular Volume 92.5 fl (81-99); Mean Platelet Volume 11.9 fL (7.4-10.4); Monocytes # 0.6 10^3/uL (0.2-0.9); Monocytes % 6.9 %; Neutrophils # 6.42 10^3/uL (1.8-7.7); Neutrophils % 70.6 %; Nucleated Red Blood Cells % 0 %; Platelet Count 224 10^3/cmm (130-400); Red Blood Count 4.29 10^6/uL (4.1-5.3); Red Cell Distribution Width 13.1 % (12.1-15.1); White Blood Count 9.1 10^3/uL (4.0-10.0)
[2021-12-28 07:06] LABS: D Dimer 0.31 ug/mIFEU (0-0.59)
[2021-12-28 07:20] LABS: Alanine Aminotransferase 23 U/L (0-33); Albumin Level 3.5 g/dL (3.5-5.2); Alkaline Phosphatase 72 U/L (35-105); Aspartate Amino Transferase 13 U/L (0-32); Blood Urea Nitrogen 16 mg/dL (6-20); Calcium 8.1 mg/dL (8.5-10.5); Carbon Dioxide 26 mmol/L (22-29); Chloride 101 mmol/L (98-107); Globulin 2.9 g/dL (1.3-4.6); Glomerular Filtration Rate 105.8 mL/min (90-130); Glucose 110 mg/dL (65-115); Osmolality Calculated 286 mOsm/kg (285-295); Sodium 137 mmol/L (136-145); Total Bilirubin 0.2 mg/dL (0.15-1.2); Total Protein 6.4 g/dL (6.6-8.7)
[2021-12-28 07:23] LABS: Anion Gap 13.8 (5-19); Potassium 3.8 mmol/L (3.5-5.1)
[2021-12-28 07:57] LABS: Glucose Point of Care 109 mg/dL (70-110)
[2021-12-28 08:00] VITALS: BP 137/72; PULSE 70; PULSE 80; RESP 16; RESP 20; TEMP 36.7; O2SAT 96; O2SAT 97
[2021-12-28] MEDS: dexamethasone 10 mg/mL INJ 6 MG IVP (08:57)
[2021-12-28] MEDS: metoprolol tartrate 50 mg Tablet PO (08:58)
[2021-12-28] MEDS: azithromycin 250 mg Tablet 500 MG PO (08:58)
[2021-12-28] MEDS: ascorbic acid 500 mg Tablet PO (08:58)
[2021-12-28] MEDS: zinc gluconate 50 mg Tablet PO (08:58)
[2021-12-28] MEDS: acetaminophen 500 mg Tablet PO (08:59)
[2021-12-28] MEDS: cefTRIAXone 1,000 MG in sodium chloride 0.9% (plus) 50 ML 100 MG IV (09:01)
[2021-12-28] MEDS: sennosides-docusate Tablet 1 TAB PO (09:05)
[2021-12-28] MEDS: ipratropium-albuterol 3 mL Neb INHALATION (09:10)
[2021-12-28] MEDS: budesonide 0.5 mg/2 mL Neb INHALATION (09:10)
[2021-12-28 10:50] LABS: Glucose Point of Care 173 mg/dL (70-110)
[2021-12-28] MEDS: insulin lispro 100 unit/1 mL SUBCUT (10:57)
[2021-12-28 11:05] VITALS: O2SAT 94; O2SAT 97
[2021-12-28 12:00] VITALS: BP 166/95; PULSE 76; RESP 16; TEMP 36.7; O2SAT 92
--- NOTE | 2021-12-28 12:15 | P.DS_ITS ---
Discharge Providers Date of Admission: 12/25/21 20:57 Date of Discharge: December 28, 2021 Attending Provider at Admission: Hernan Acosta MD Attending Provider at Discharge: Abelardo Ordaz Primary Care Provider: TOBI Henderson Diagnoses at Discharge Discharge Diagnosis (1) COVID: Status: Acute (2) Asthma exacerbation: Status: Acute (3) Wheezing: Status: Acute (4) Generalized weakness: Status: Acute (5) Body aches: Status: Acute (6) Hypoxemia: Status: Acute (7) Obesity: Status: Acute Reason for Visit Reason for Visit: Weakness, Covid +, fever Hospital Course Hospital Course Pleasant 51-year-old lady with history of eosinophilic asthma, seasonal allergies, history of COVID-19 back in January 2020, obesity, BRIAN on CPAP, GERD, IBS and other medical history presented due to worsening shortness of breath, generalized weakness, malaise, dry heaving, has also experienced headache, constipation. On presentation found with recurrence of COVID-19 infection. Requiring oxygen, 3 L nasal cannula, not normally on oxygen at home, with severe COVID-19 infection. Also noted wheezing, asthma exacerbation. He was treated with oxygen support initially, with Decadron IV, remdesivir, neb treatments, montelukast was continued, with rapid improvement in wheezing, improvement in air entry. D-dimer noted normal, underwent additional assessment with CT angiogram of the chest which was negative for PE, with mild basilar atelectasis. Minimal peripheral groundglass opacities. Was empirically on ceftriaxone and azithromycin. Oxygenation gradually improved, weaned down to room air. Continued with malaise, but with nasal congestion, saline spray was tried, but with minimal improvement. Still overall feeling miserable, and with nasal congestion. Request to return home to continue recovery there. As oxygenation remains stable, with improvement, will give prescription to complete a brief antibiotic course and Decadron course. Refill given for antihistamine for nasal congestion. Continue Flonase, Symbicort, Spiriva, montelukast, Fasenra. Does not qualify for oxygen Home O2 eval. Asked to follow-up with her lung specialist. Consider vaccination for COVID-19. Physical Exam Const: COMMON NORMALS: patient oriented x3 and alert GENERAL APPEARANCE: cooperative NUTRITIONAL APPEARANCE: obese ORIENTATION/CONSCIOUSNESS: Yes awake HENMT: COMMON NORMALS: oropharynx normal OTHER: Nasal congestion. Neck/C-Spine: COMMON NORMALS: no JVD Resp: COMMON NORMALS: normal respiratory effort and clear to auscultation bilaterally AUSCULTATION: clear to auscultation bilaterally and wheezes (Mild wheezes with cough) Cardio: COMMON NORMALS: no JVD, regular rhythm, S1 normal heart sound present, S2 normal heart sound present and No murmurs present (Cardio) RHYTHM: regular rhythm HEART SOUNDS: S1 normal heart sound present and S2 normal heart sound present GI: COMMON NORMALS: Normal to inspection, nondistended, normoactive bowel sounds present, Soft to palpation and non-tender PALPATION: Yes Soft to palpation Extremity: COMMON NORMALS: no joint enlargement and no pedal edema Neuro: COMMON NORMALS: patient oriented x3 and moves all extremities SENSORIUM/ORIENTATION: Yes alert Skin: COMMON NORMALS: no rashes or lesions noted GENERAL SKIN EXAM: no rashes or lesions noted Discharge Data Studies Completed and Pending Completed Studies During Hospitalization Category Date Time Status CTA chest [CT angio chest PE protcl [id number]] Stat Cat Scan 12/25/21 19:00 Completed XR chest 1V portable [id number] Stat Exams 12/25/21 17:12 Completed Pending at discharge Category Date Time Status Complete Blood Count w/Auto AM LABS Lab 12/29/21 04:00 Ordered Comprehensive Metabolic Panel AM LABS Lab 12/29/21 04:00 Ordered D Dimer AM LABS Lab 12/29/21 04:00 Ordered Magnesium AM LABS Lab 12/29/21 04:00 Ordered Radiology Impressions Chest X-Ray 12/25/21 17:12 IMPRESSION: No acute infiltrate. Chest CTA 12/25/21 19:00 IMPRESSION: 1. No evidence of pulmonary embolism. 2. Mild basilar atelectasis. 3. Question of minimal peripheral ground-glass opacities which could represent COVID-19 infection as indicated in the history. Laboratory Results WBC 9.1 10^3/uL (4.0-10.0) 12/28/21 06:20 RBC 4.29 10^6/uL (4.1-5.3) 12/28/21 06:20 Hgb 13.0 g/dL (11.5-15.3) 12/28/21 06:20 Hct 39.7 % (37.0-47.0) 12/28/21 06:20 MCV 92.5 fl (81-99) 12/28/21 06:20 MCH 30.3 pg (28.0-34.0) 12/28/21 06:20 MCHC 32.7 g/dL (30.0-36.0) 12/28/21 06:20 RDW 13.1 % (12.1-15.1) 12/28/21 06:20 Plt Count 224 10^3/cmm (130-400) 12/28/21 06:20 MPV 11.9 fL (7.4-10.4) H 12/28/21 06:20 Neut % (Auto) 70.6 % 12/28/21 06:20 Lymph % (Auto) 21.5 % 12/28/21 06:20 [place] % (Auto) 6.9 % 12/28/21 06:20 Eos % (Auto) 0.0 % 12/28/21 06:20 Baso % (Auto) 0.2 % 12/28/21 06:20 Neut # (Auto) 6.42 10^3/uL (1.8-7.7) 12/28/21 06:20 Lymph # (Auto) 2.0 10^3/uL (0.8-4.8) 12/28/21 06:20 [place] # (Auto) 0.6 10^3/uL (0.2-0.9) 12/28/21 06:20 Eos # (Auto) 0.0 10^3/uL (0.0-0.8) 12/28/21 06:20 Baso # (Auto) 0.0 10^3/uL (0.0-0.1) 12/28/21 06:20 Nucleated RBC % (auto) 0 % 12/28/21 06:20 Nucleated RBCs # 0.0 /100WBC 12/28/21 06:20 D-Dimer 0.31 ug/mIFEU (0-0.59) 12/28/21 06:20 Specimen Type Arterial 12/26/21 04:45 Sample Site Radial, right 12/26/21 04:45 ABG pH 7.39 (7.35-7.45) 12/26/21 04:45 ABG pCO2 39.0 mmHg (35-45) 12/26/21 04:45 ABG pO2 92.0 mmHg (80.0-100.0) 12/26/21 04:45 ABG HCO3 23.6 mmol/L (22-26) 12/26/21 04:45 ABG Base Excess -1.2 mmol/L (-2.0-2.0) 12/26/21 04:45 Raji Test Pos 12/26/21 04:45 Hematocrit 45.8 % (37-47) 12/26/21 04:45 O2 Delivery Device Ambu 12/26/21 04:45 O2 Liters/Min 3.0 % 12/26/21 04:45 Program Assistant ID Tion 12/26/21 04:45 Sodium 137 mmol/L (136-145) 12/28/21 06:20 Potassium 3.8 mmol/L (3.5-5.1) 12/28/21 06:20 Chloride 101 mmol/L (98-107) 12/28/21 06:20 Carbon Dioxide 26 mmol/L (22-29) 12/28/21 06:20 Anion Gap 13.8 (5-19) 12/28/21 06:20 BUN 16 mg/dL (6-20) 12/28/21 06:20 Creatinine 0.6 mg/dL (0.5-0.9) 12/28/21 06:20 GFR Calculation 105.8 mL/min (90-130) 12/28/21 06:20 Glucose 110 mg/dL (65-115) 12/28/21 06:20 POC Glucose 173 mg/dL (70-110) H 12/28/21 10:44 Calculated Osmolality 286 mOsm/kg (285-295) 12/28/21 06:20 Calcium 8.1 mg/dL (8.5-10.5) L 12/28/21 06:20 Phosphorus 3.3 mg/dL (2.5-4.5) 12/26/21 01:46 Magnesium 2.0 mg/dL (1.7-2.3) 12/28/21 06:20 Total Bilirubin 0.2 mg/dL (0.15-1.2) 12/28/21 06:20 AST 13 U/L (0-32) 12/28/21 06:20 ALT 23 U/L (0-33) 12/28/21 06:20 Alkaline Phosphatase 72 U/L (35-105) 12/28/21 06:20 C-Reactive Protein 71.8 mg/L (0.0-4.9) H 12/26/21 01:46 NT-Pro-B Natriuret Pep 126 pg/mL (0-125) H 12/25/21 17:40 Total Protein 6.4 g/dL (6.6-8.7) L 12/28/21 06:20 Albumin 3.5 g/dL (3.5-5.2) 12/28/21 06:20 Globulin 2.9 g/dL (1.3-4.6) 12/28/21 06:20 Lipase 16 U/L (13-60) 12/25/21 17:40 Vitamin B12 365 pg/mL (232-1245) 12/25/21 17:40 Procalcitonin 0.13 ng/mL (0-0.5) 12/25/21 17:40 Urine Color Yellow (Yellow) 12/25/21 20:12 Urine Appearance Clear (CLEAR) 12/25/21 20:12 Urine pH 6 (5-7) 12/25/21 20:12 Ur Specific [place] 1.005 (1.005-1.030) 12/25/21 20:12 Urine Protein Neg (Negative) 12/25/21 20:12 Urine Glucose (UA) Norm (Normal) 12/25/21 20:12 Urine Ketones Negative (Negative) 12/25/21 20:12 Urine Blood Neg (Negative) 12/25/21 20:12 Urine Nitrate Negative (Negative) 12/25/21 20:12 Urine Bilirubin Neg (Negative) 12/25/21 20:12 Urine Urobilinogen Norm mg/dL (Negative) 12/25/21 20:12 Ur Leukocyte Esterase Negative (Negative) 12/25/21 20:12 Coronavirus 229E (PCR) Not detected (NOT DETECT) 12/25/21 22:30 SARS-CoV-2 (PCR) Detected (NOT DETECT) A 12/25/21 22:30 Vitals Last Vital Signs Temp 98.0 F 12/28/21 08:00 Pulse 70 12/28/21 08:00 Resp 16 12/28/21 08:00 BP 137/72 12/28/21 08:00 Pulse Ox 97 12/28/21 11:05 O2 Del Method 12/28/21 08:00 O2 Flow Rate 2 12/28/21 08:00 Discharge Plan Discharge Patient Disposition: Home Condition: Stable Prescriptions: New levofloxacin 500 mg tablet 500 mg PO DAILY 5 Days Qty: 5 0RF benzonatate 100 mg Capsule 200 mg PO Q6H PRN (Reason: Cough) Qty: 60 2RF Decadron 6 mg tablet 6 mg PO DAILY Qty: 2 0RF pantoprazole 40 mg tablet,delayed release (DR/EC) 40 mg PO DAILY Qty: 14 0RF Continued metoprolol tartrate 25 mg tablet 25 mg PO BID 30 Days Qty: 60 5RF albuterol sulfate [ProAir HFA] 90 mcg/actuation HFA aerosol inhaler 2 puff INHALATION Q6H PRN (Reason: shortness of breath or wheezing) Qty: 8.5 5RF Spiriva with HandiHaler 18 mcg capsule, w/inhalation device 1 cap inhalation DAILY 30 Days Qty: 60 4RF Rx Instructions: puncture 1 cap using device; one dose = 2 inhalations budesonide-formoterol [Symbicort] 160-4.5 mcg/actuation HFA aerosol inhaler 2 puff inhalation Q12H 30 Days Qty: 10.2 4RF Fasenra Pen 30 mg/mL auto-injector 30 mg SUBCUT .Every 8 weeks Qty: 3 3RF Rx Instructions: To start after the initial 3 doses (DME) Custom Molded Orthotics See Rx Instructions .Route .MEDSUPPLY Qty: 1 0RF Rx Instructions: As directed epinephrine 0.3 mg/0.3 mL auto-injector 0.3 mg IM Q10M PRN (Reason: Anaphylaxis) Rx Instructions: for 2 doses fluticasone propionate [Flonase Allergy Relief] 50 mcg/actuation spray,suspension 1 spray INTRANASAL Q12H 90 Days Qty: 18.2 5RF Rx Instructions: administer into each nostril azelastine 137 mcg (0.1 %) aerosol,spray 1 spray INTRANASAL BID 90 Days Qty: 30 3RF (DME) Sole Supports See Rx Instructions .Route .MEDSUPPLY Qty: 1 0RF Rx Instructions: As directed (DME) Night Splint See Rx Instructions .Route .MEDSUPPLY Qty: 1 0RF Rx Instructions: As directed montelukast 10 mg tablet 10 mg PO QPM 30 Days Qty: 30 5RF pravastatin 20 mg tablet 20 mg PO DAILY 30 Days Qty: 30 5RF Ozempic 0.25 mg or 0.5 mg(2 mg/1.5 mL) pen injector 0.25 mg SUBCUT .weekly Qty: 1.5 0RF Rx Instructions: take for 1month ketoconazole 2 % shampoo 1 applic TOPICAL DIRECTED albuterol sulfate 2.5 mg /3 mL (0.083 %) solution for nebulization 2.5 mg inhalation Q6H PRN (Reason: Shortness Of Breath Or Wheezing) Changed loratadine 10 mg tablet 10 mg PO DAILY PRN (Reason: Congestion) Qty: 30 0RF Discontinued benzonatate 100 mg capsule 1 mg PO TID Discharge Orders: Discharge Order (Routine); Ordered 12/28/21 Ordered By: Abelardo Ordaz Referrals: Ruthann Clemente FNP-C [Primary Care Provider] - 4-7 days (Please call Ruthann Clemente's Office at [phone] on Wednesday to schedule a follow up appointment for 4-7 days. Thank you.) Tatiana Vidal MD [Physician] - 1 week (Please call Dr. Vidal's Office at [phone] on Wednesday to schedule a follow up appointment for 1 week. Thank you.) Discharge Diet: Advance as tolerated and Diabetic Discharge Activity: Increase activity as tolerated Patient Instructions: Benzonatate (By mouth) (Crystal Friend), Levofloxacin (By mouth), Dexamethasone (By mouth), Pantoprazole (By mouth), COVID-19 (Coronavirus Disease 2019) (GEN) Activity Restrictions/Additional Instructions: Continue supportive measures, cough medicine as needed for cough, as discussed ondansetron as needed for nausea. You are given refill on antihistamine loratadine as well as needed for nasal congestion. Brief antibiotic course with Levaquin and short course with Decadron. Continue albuterol. Flonase. Continue Symbicort, Spiriva, montelukast. Continue Fasenra. Follow-up with your lung specialist. Brief course of pantoprazole was given due to nausea and use of steroids. Please consider obtaining COVID-19 vaccination. Discharge Attestations Time Spent in Discharge Care*: greater than 30 min Quality Metrics Clinical Quality Measures [ No reported AMI, CVA or VTE this stay] Coding Level of Care Code Acute [facility] note Diagnoses COVID U07.1 Asthma exacerbation J45.901 Wheezing R06.2 Generalized weakness R53.1 Body aches R52 Hypoxemia R09.02 Obesity E66.9
[2021-12-28 13:58] VITALS: BP 166/95; PULSE 76; RESP 16; TEMP 36.7; O2SAT 92
--- NOTE | 2021-12-28 13:59 | PC.NURSE ---
Discharge Note Patient discharged to home via private vehicle accompanied by . 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 Mobile pharmacy medications and/or prescriptions provided. Belongings/home medications returned.
== END 2021-12-28 14:00 | disposition home or self-care (01) | DRG 177 ==
LOC: ER 20:58 → MEDSURG 22:08
PROVIDERS: Admitting Provider Internal Medicine; Emergency Provider Emergency Medicine; PCP Nurse Practitioner Family; Visit Provider Internal Medicine
DX: U07.1 COVID-19 (principal); J12.82 Pneumonia due to coronavirus disease 2019; J45.901 Unspecified asthma with (acute) exacerbation; J82.83 Eosinophilic asthma; Z68.42 Body mass index [BMI] 45.0-49.9, adult; G47.33 Obstructive sleep apnea (adult) (pediatric); K59.00 Constipation, unspecified; E66.01 Morbid (severe) obesity due to excess calories; K21.9 Gastro-esophageal reflux disease without esophagitis; K58.9 Irritable bowel syndrome, unspecified; K44.9 Diaphragmatic hernia without obstruction or gangrene; F43.10 Post-traumatic stress disorder, unspecified; M48.00 Spinal stenosis, site unspecified; E89.0 Postprocedural hypothyroidism; R73.9 Hyperglycemia, unspecified; Z98.890 Other specified postprocedural states; Z86.16 Personal history of COVID-19; Z90.49 Acquired absence of other specified parts of digestive tract; Z87.891 Personal history of nicotine dependence; Z99.89 Dependence on other enabling machines and devices; Z92.22 Personal history of monoclonal drug therapy
CPT/HCPCS: 36415; 36416; 36600; 71045; 71275; 80048; 80053; 81003; 82607; 82803; 82962; 83690; 83735; 83880; 84100; 84145; 85025; 85378; 86140; 86403; 87449; 87635; 87641; 94640; 94660; 94760; 96372; J0696; J1100; J1650; J1815; J2405; J2930; J3105; J3475; J7030; J7626; Q0144; Q9967

== ENCOUNTER → 2022-01-08 15:42 | Outpatient (BNVA) | payer OTHER, MEDICAID, SELFPAY ==
[2021-07-08 10:08] VITALS: BP 158/98; BMI 42.8
== END ==
PROVIDERS: PCP Nurse Practitioner Family; Visit Provider Internal Medicine
DX: E03.9 Hypothyroidism, unspecified (principal); E11.9 Type 2 diabetes mellitus without complications
CPT/HCPCS: 83036; 84439; 84443

== ENCOUNTER 2022-03-17 09:31 | Day surgery (SDC) | payer OTHER, MEDICAID, SELFPAY ==
[2021-07-08 10:08] VITALS: BP 158/98; BMI 42.8
[2022-03-16 11:31] VITALS: BMI 44.4
[2022-03-17] VITALS (12 sets, daily range): BP systolic 140–161; BP diastolic 83–99; PULSE 70–98; RESP 12–18; TEMP 36.1–36.6; O2SAT 92–98
[2022-03-17 09:54] LABS: OR HCG Qualitative Urine Negative (Negative)
[2022-03-17] MEDS: sodium chloride 0.9% 1,000 ML 30 ML IV (10:26)
[2022-03-17 10:29] LABS: Glucose Point of Care 113 mg/dL (70-110)
[2022-03-17] MEDS: scopolamine 1.5 Patch 1 PATCH TRANSDERMA (10:36)
--- NOTE | 2022-03-17 10:55 | W.PM.OPSUD ---
Surgery/Procedure H&P Update DATE OF PROCEDURE: March 17, 2022 DATE H&P PERFORMED: 03/12/22 H&P UPDATE INFORMATION: I have reviewed H&P completed within last 30 days, I have examined patient prior to procedure and No changes to prior documentation PREOP DIAGNOSIS: thickened endometrium PLANNED PROCEDURE: Operation Date: 03/17/22 11:15 Proposed Procedures p ysteroscopy, dilation and curettage with Myosure 44414, 07358, 94794,R93.89,N93.9,E66.9(Not Applicable) - Jordyn Benitez MD s Dilation And Curettage (D&C)(Not Applicable) - Jordyn Benitez MD Related Problem List Diagnoses (1) Thickened endometrium:
[2022-03-17] MEDS: ceFAZolin 2,000 MG in sodium chloride 0.9% (plus) 50 ML 100 MG IV (11:07)
--- NOTE | 2022-03-17 11:19 | ANES.PREANE2 ---
Pre-Anesthetic Assessment Height/Weight: Height 1.68 m Weight 124.738 kg Temp Pulse Resp BP Pulse Ox O2 Del Method 97.8 F 83 18 146/99 95 03/17/22 09:40 03/17/22 09:40 03/17/22 09:40 03/17/22 09:40 03/17/22 09:40 03/17/22 09:58 Preop Diagnosis: thickened endometrium Operation Date: 03/17/22 11:15 Proposed Procedures p ysteroscopy, dilation and curettage with Myosure 82349, 96912, 79753,R93.89,N93.9,E66.9(Not Applicable) - Jordyn Benitez MD s Dilation And Curettage (D&C)(Not Applicable) - Jordyn Benitez MD Familial anesthetic complications: none Was Beta Danis taken within 24 hours: N/A Was Clonidine taken within 24 hours: N/A Last intake: Intake Last Liquid Date 03/16/22 Last Liquid Time 20:00 Last Solid Date 03/16/22 Last Solid Time 19:00 Social No alcohol and No tobacco Exam alert, oriented x 3, clear to auscultation bilaterally and regular rate & rhythm Airway Submandibular: within normal limits Mallampati: Class II Dentition: full Pulmonary Asthma CV/HEM Hypertension GI Gastroesophageal Reflux Disease Metabolic Diabetes Mellitus, Hyperlipidemia, Morbid Obesity and Thyroid Disease Neuropsych Anxiety and Depression Anesthetic Plan ASA status: 3 Anesthesia: General Medications/Allergies Home Medications Medication Instructions Recorded Confirmed Last Taken Type azelastine 137 mcg (0.1 %) nasal 1 spray intranasal BID 90 days #30 11/10/19 03/17/22 03/10/22 Rx spray aerosol mL fluticasone propionate 50 1 spray intranasal Q12H 90 days 11/10/19 03/16/22 03/10/22 Rx mcg/actuation nasal #18.2 mL spray,suspension (Flonase Allergy Relief) albuterol sulfate 90 mcg/actuation 2 puff inhalation Q6H PRN 03/26/21 03/16/22 03/13/22 Rx aerosol inhaler (ProAir HFA) shortness of breath or wheezing #8.5 grams Custom Molded Orthotics #1 ea 06/30/21 03/12/22 Unknown Rx epinephrine 0.3 mg/0.3 mL 0.3 mg IM Q10M PRN Anaphylaxis 07/02/21 03/16/22 Unknown History injection, auto-injector montelukast 10 mg tablet 10 mg PO QPM 30 days #30 tabs 07/07/21 03/16/22 03/16/22 Rx pravastatin 20 mg tablet 20 mg PO DAILY 30 days #30 tabs 07/07/21 03/16/22 03/16/22 Rx Sole Supports #1 ea 07/30/21 03/12/22 Unknown Rx metoprolol tartrate 25 mg tablet 25 mg PO BID 30 days #60 tabs 08/05/21 03/16/22 03/16/22 Rx Night Splint #1 ea 09/29/21 03/12/22 Unknown Rx semaglutide 0.25 mg or 0.5 mg (2 0.25 mg (0.2 mL) SUBCUT .weekly 11/20/21 03/16/22 03/12/22 Rx mg/1.5 mL) subcutaneous pen #1.5 mL injector ([employer] [facility]) albuterol sulfate 2.5 mg/3 mL 2.5 mg inhalation Q6H PRN 12/26/21 03/16/22 02/17/22 History (0.083 %) solution for nebulization Shortness Of Breath Or Wheezing benzonatate 100 mg capsule 200 mg PO Q6H PRN Cough #60 caps 12/28/21 03/17/22 03/03/22 Rx loratadine 10 mg tablet 10 mg PO DAILY PRN Congestion #30 12/28/21 03/16/22 03/13/22 Rx tabs pantoprazole 40 mg tablet,delayed 40 mg PO DAILY #14 tabs 12/28/21 03/17/22 03/09/22 Rx release levothyroxine 25 mcg capsule 25 mcg PO DAILY 90 days #90 caps 01/12/22 03/16/22 03/13/22 Rx (Tirosint) amlodipine 10 mg tablet 10 mg PO DAILY 02/02/22 03/16/22 03/16/22 History budesonide 160 mcg-glycopyr 9 2 inh inhalation BID #10.7 grams 02/18/22 03/16/22 03/14/22 Rx mcg-formot 4.8 mcg/actuation HFA inhaler (Qoviaztri Aerosphere) Allergies Allergy/AdvReac Type Severity Reaction Status Date / Time adhesive tape Allergy Severe ALGY-Bliste Verified 03/12/22 11:21 r levothyroxine sodium Allergy Unknown Vomiting/Di Verified 03/12/22 11:21 arrhea morphine Allergy Unknown itching Verified 03/12/22 11:21 ranitidine Allergy Unknown Vomiting/Di Verified 03/12/22 11:21 arrhea thyroid, pork Allergy Unknown Vomiting/Di Verified 03/12/22 11:21 [From [place] Thyroid] arrhea tramadol Allergy Unknown Itching Verified 03/12/22 11:21 Current Medications Generic Name Dose Route Start Last Admin Trade Name Freq PRN Reason Stop Dose Admin Sodium Chloride 1,000 mls @ 30 mls/hr 03/17/22 09:45 03/17/22 10:26 Sodium Chloride 0.9% IV 03/18/22 09:44 30 mls/hr .Q24H ALEXY Administration PFSH Anesthesia Medical History Environmental and seasonal allergies GERD (gastroesophageal reflux disease) Hiatal hernia History of 2019 novel coronavirus disease (COVID-19) Irritable bowel syndrome (IBS) Mixed stress and urge urinary incontinence No pertinent past medical history neghx: dm,dvt/pe PCP: [facility]ann [facility] PTSD (post-traumatic stress disorder) Seasonal allergies Spinal stenosis Tachyarrhythmia Surgical History H/O esophagogastroduodenoscopy H/O excision of mass (03/17/21) abdominal wall mass H/O laparoscopy (~2017) incarcerated -- [facility] History of carpal tunnel release right History of delivery x 4--1990,1996,2000,2006 History of cholecystectomy (~2015) History of dilation and curettage (~1999) History of thyroidectomy (~2009) Hemithyroidectomy--- has never been able to tolerate medication History of total knee arthroplasty Hx of appendectomy (~1992) Hx of arthroscopic knee surgery 3 surgeries Hx of hernia repair (~02/2021) S/P ACL reconstruction (~2003) right Status post laparoscopic hernia repair (~2012) hiatal Family History Mother Hypertension Stroke Diabetes Hypercholesteremia Sister Hypertension Diabetes Hypercholesteremia Grandmother Hypertension Maternal and Paternal Cancer Paternal --Bladder, liver and brain Ovarian cancer Paternal--dx age unknown Breast cancer Paternal--dx age unknown Brother Cancer Brain tumor Diabetes Hypercholesteremia Hypertension Family/Other No problems noted. Father Hypercholesteremia Denies family history of Colon cancer Uterine cancer Thyroid disease Female Reproductive History Date of last menstrual period: 03/10/22 Data Anesthesia Cardiac Studies: Echocardiogram Ultrasound 04/30/20 Cardiac Event Monitor 02/25/21
[2022-03-17] MEDS: miSOPROStol 200 mcg Tablet 800 MCG VAGINAL (11:47)
--- NOTE | 2022-03-17 11:59 | PM.OP ---
Operative Report Date of procedure: March 17, 2022 Pre-op diagnosis: Preop Diagnosis thickened endometrium Post-op diagnosis: other Post-op findings: unable to perform procedure due to cervical stenosis Procedure done: attempted hysteroscopy. Specimens removed/disposition: none Pathology: none Surgeon: Jordyn Benitez Anesthesia: General Estimated blood loss (mL): 1 IV fluids (mL): 300 Complications: unable to perform procedure due to cervical stenosis Findings: tiny cervix with severe cervical stenosis and large rectocele Condition: stable Disposition: PACU Procedure: The patient was taken to the operating room where monitored anesthesia was administered and to be adequate. She was prepped and draped in the normal sterile fashion in the dorsal lithotomy position in [facility]. A weighted speculum was placed into the vagina and the anterior lip of the cervix grasped with a single-tooth tenaculum. The uterus was sounded to 2 cm. The cervix had severe stenosis. 800mcg of cytotec was placed vaginally. The cervix was still unable to be dilated. The procedure was abandoned. I will pretreat with oral cytotec prior to resheduled procedure. All instruments were removed. The patient tolerated the procedure well. Sponge lap and needle counts were correct x3. She was taken to the recovery room in stable condition.
[2022-03-17] MEDS: meperidine 50 mg/mL INJ 12.5 MG IVP (12:04)
--- NOTE | 2022-03-17 12:05 | PM.DCS ---
Discharge Providers Date of Admission: 03/17/22 Date of Discharge: March 17, 2022 Attending Provider at Discharge: Jordyn Benitez MD Primary Care Provider: TOBI Henderson Diagnoses at Discharge Discharge Diagnosis (1) Thickened endometrium: Status: Acute Hospital Course Hospital Course The patient was admitted for surgery. The surgery had to be abandoned due to cervical stenosis. She did well post-anesthesia and was ready for disharge. Discharge Data Studies Completed and Pending Laboratory Results POC Glucose 113 mg/dL (70-110) H 03/17/22 10:21 Urine HCG, Qual Negative (Negative) 03/17/22 09:47 Vitals Last Vital Signs Temp 97.8 F 03/17/22 09:40 Pulse 83 03/17/22 09:40 Resp 18 03/17/22 09:40 BP 146/99 03/17/22 09:40 Pulse Ox 95 03/17/22 09:40 O2 Del Method 03/17/22 09:58 Discharge Plan Discharge Patient Disposition: Home Condition: Stable Prescriptions: Continued metoprolol tartrate 25 mg tablet 25 mg PO BID 30 Days Qty: 60 5RF albuterol sulfate [ProAir HFA] 90 mcg/actuation HFA aerosol inhaler 2 puff INHALATION Q6H PRN (Reason: shortness of breath or wheezing) Qty: 8.5 5RF (DME) Custom Molded Orthotics See Rx Instructions .Route .MEDSUPPLY Qty: 1 0RF Rx Instructions: As directed epinephrine 0.3 mg/0.3 mL auto-injector 0.3 mg IM Q10M PRN (Reason: Anaphylaxis) Rx Instructions: for 2 doses fluticasone propionate [Flonase Allergy Relief] 50 mcg/actuation spray,suspension 1 spray INTRANASAL Q12H 90 Days Qty: 18.2 5RF Rx Instructions: administer into each nostril azelastine 137 mcg (0.1 %) aerosol,spray 1 spray INTRANASAL BID 90 Days Qty: 30 3RF (DME) Sole Supports See Rx Instructions .Route .MEDSUPPLY Qty: 1 0RF Rx Instructions: As directed amlodipine 10 mg tablet 10 mg PO DAILY Breztri Aerosphere 160-9-4.8 mcg/actuation HFA aerosol inhaler 2 inh inhalation BID Qty: 10.7 3RF (DME) Night Splint See Rx Instructions .Route .MEDSUPPLY Qty: 1 0RF Rx Instructions: As directed montelukast 10 mg tablet 10 mg PO QPM 30 Days Qty: 30 5RF pravastatin 20 mg tablet 20 mg PO DAILY 30 Days Qty: 30 5RF Ozempic 0.25 mg or 0.5 mg(2 mg/1.5 mL) pen injector 0.25 mg SUBCUT .weekly Qty: 1.5 0RF Rx Instructions: take for 1month levothyroxine [Tirosint] 25 mcg capsule 25 mcg PO DAILY 90 Days Qty: 90 3RF albuterol sulfate 2.5 mg /3 mL (0.083 %) solution for nebulization 2.5 mg inhalation Q6H PRN (Reason: Shortness Of Breath Or Wheezing) benzonatate 100 mg Capsule 200 mg PO Q6H PRN (Reason: Cough) Qty: 60 2RF loratadine 10 mg tablet 10 mg PO DAILY PRN (Reason: Congestion) Qty: 30 0RF pantoprazole 40 mg tablet,delayed release (DR/EC) 40 mg PO DAILY Qty: 14 0RF Discharge Orders: Discharge Order (Routine); Ordered 03/17/22 Ordered By: Jordyn Benitez Discharge Attestations Time Spent in Discharge Care*: less than 30 min Quality Metrics Clinical Quality Measures [ No reported AMI, CVA or VTE this stay] Coding Level of Care Code Acute [facility] note Diagnoses Thickened endometrium R93.89
--- NOTE | 2022-03-17 13:20 | ANE.PACU2 ---
Inpatient post-anesthesia follow up: Airway intact: Yes Vital signs: Temperature 97.0 F Pulse Rate 70 Respiratory Rate 16 Blood Pressure 140/91 Pulse Oximetry 92 Oxygen Delivery Me thod Room Air Oxygen Flow Rate 6 Fraction of Inspir ed Oxygen Hydration adequate: Yes Nausea and vomiting: No Pain level: 2 Mental status: Baseline
== END 2022-03-17 13:50 | disposition home or self-care (01) ==
PROVIDERS: Anesthesiology; PCP Nurse Practitioner Family; Visit Provider Obstetrics & Gynecology
PROC: 0UDB8ZZ Extraction of Endometrium, Via Natural or Artificial Opening Endoscopic (ICD-10-PCS; CPT 58558; principal; 2022-03-17 11:05)
PROC: (CPT 58120; 2022-03-17 11:05)
DX: R93.89 Abnormal findings on diagnostic imaging of other specified body structures (principal); N88.2 Stricture and stenosis of cervix uteri; Z53.8 Procedure and treatment not carried out for other reasons; J45.909 Unspecified asthma, uncomplicated; I10 Essential (primary) hypertension; K21.9 Gastro-esophageal reflux disease without esophagitis; E11.9 Type 2 diabetes mellitus without complications; E78.5 Hyperlipidemia, unspecified; E66.01 Morbid (severe) obesity due to excess calories; Z68.41 Body mass index [BMI] 40.0-44.9, adult; F41.9 Anxiety disorder, unspecified; F32.A Depression, unspecified
CPT/HCPCS: 58558; 36416; 81025; 82962; 84703; J0690; J1100; J1200; J2175; J2405; J2704; J3010; J7030

== ENCOUNTER → 2022-04-02 14:36 | Outpatient (BNVA) | payer MEDICAID, SELFPAY ==
[2021-07-08 10:08] VITALS: BP 158/98; BMI 42.8
== END ==
PROVIDERS: PCP Nurse Practitioner Family; Visit Provider Internal Medicine
DX: E03.9 Hypothyroidism, unspecified (principal); E11.9 Type 2 diabetes mellitus without complications; E66.9 Obesity, unspecified; Z79.890 Hormone replacement therapy; Z68.41 Body mass index [BMI] 40.0-44.9, adult
CPT/HCPCS: 99214

== ENCOUNTER 2022-04-07 05:51 | Day surgery (SDC) | payer OTHER, MEDICAID, SELFPAY ==
[2021-07-08 10:08] VITALS: BP 158/98; BMI 42.8
[2022-04-06 15:02] VITALS: BMI 43.5
[2022-04-07] VITALS (13 sets, daily range): BP systolic 140–171; BP diastolic 82–109; PULSE 80–97; RESP 16–22; TEMP 36.1–36.7; O2SAT 93–98
[2022-04-07 06:29] LABS: Glucose Point of Care 135 mg/dL (70-110)
[2022-04-07] MEDS: sodium chloride 0.9% 1,000 ML 30 ML IV (06:29)
[2022-04-07 06:33] LABS: OR HCG Qualitative Urine Negative (Negative)
--- NOTE | 2022-04-07 06:46 | ANES.PREANE2 ---
Pre-Anesthetic Assessment Height/Weight: Height 1.68 m Weight 122.47 kg Temp Pulse Resp BP Pulse Ox O2 Del Method 98.1 F 88 18 171/104 93 04/07/22 06:13 04/07/22 06:13 04/07/22 06:13 04/07/22 06:13 04/07/22 06:13 04/07/22 06:13 Preop Diagnosis: thickened endometrium Operation Date: 04/07/22 07:00 Proposed Procedures p Hysterosocpy, dialtion and curettage with Myosure [id number] ,R93.89(Not Applicable) - Jordyn Benitez MD s Dilation And Curettage (D&C)(Not Applicable) - Jordyn Benitez MD Familial anesthetic complications: None Was Beta Danis taken within 24 hours: N/A Was Clonidine taken within 24 hours: N/A Last intake: Intake Last Liquid Date 04/06/22 Last Liquid Time 23:30 Last Solid Date 04/06/22 Last Solid Time 23:30 Social No alcohol and No tobacco Exam alert, oriented x 3, clear to auscultation bilaterally and regular rate & rhythm Airway Mallampati: Class III Dentition: full Pulmonary Asthma CV/HEM Hypertension GI Gastroesophageal Reflux Disease Metabolic Diabetes Mellitus, Hyperlipidemia, Morbid Obesity and Thyroid Disease Neuropsych Anxiety and Depression Anesthetic Plan ASA status: 3 Anesthesia: General Risk of > 500 ml blood loss (7ml/kg in children): No Medications/Allergies Home Medications Medication Instructions Recorded Confirmed Last Taken Type azelastine 137 mcg (0.1 %) nasal 1 spray intranasal BID 90 days #30 11/10/19 04/06/22 04/06/22 Rx spray aerosol mL fluticasone propionate 50 1 spray intranasal Q12H 90 days 11/10/19 04/06/22 03/10/22 Rx mcg/actuation nasal #18.2 mL spray,suspension (Flonase Allergy Relief) albuterol sulfate 90 mcg/actuation 2 puff inhalation Q6H PRN 03/26/21 04/06/22 04/06/22 Rx aerosol inhaler (ProAir HFA) shortness of breath or wheezing #8.5 grams Custom Molded Orthotics #1 ea 06/30/21 04/02/22 Unknown Rx epinephrine 0.3 mg/0.3 mL 0.3 mg IM Q10M PRN Anaphylaxis 07/02/21 04/06/22 Unknown History injection, auto-injector montelukast 10 mg tablet 10 mg PO QPM 30 days #30 tabs 07/07/21 04/06/22 04/06/22 Rx pravastatin 20 mg tablet 20 mg PO DAILY 30 days #30 tabs 07/07/21 04/06/22 04/06/22 Rx Sole Supports #1 ea 07/30/21 04/02/22 Unknown Rx Night Splint #1 ea 09/29/21 04/02/22 Unknown Rx albuterol sulfate 2.5 mg/3 mL 2.5 mg inhalation Q6H PRN 12/26/21 04/06/22 04/06/22 History (0.083 %) solution for nebulization Shortness Of Breath Or Wheezing benzonatate 100 mg capsule 200 mg PO Q6H PRN Cough #60 caps 12/28/21 04/06/22 03/03/22 Rx loratadine 10 mg tablet 10 mg PO DAILY PRN Congestion #30 12/28/21 04/06/22 04/06/22 Rx tabs pantoprazole 40 mg tablet,delayed 40 mg PO DAILY #14 tabs 12/28/21 04/06/22 04/06/22 Rx release levothyroxine 25 mcg capsule 25 mcg PO DAILY 90 days #90 caps 01/12/22 04/06/22 04/06/22 Rx (Tirosint) amlodipine 10 mg tablet 10 mg PO DAILY 02/02/22 04/06/22 04/07/22 06:00 History budesonide 160 mcg-glycopyr 9 2 inh inhalation BID #10.7 grams 02/18/22 04/06/22 04/06/22 Rx mcg-formot 4.8 mcg/actuation HFA inhaler (Breztri Aerosphere) misoprostol 200 mcg tablet 600 mcg PO Q6H #8 tabs 03/25/22 04/06/22 04/07/22 06:00 Rx (Cytotec) semaglutide 1 mg/dose (2 mg/1.5 1 mg (0.75 mL) SUBCUT .weekly #3 mL 04/03/22 04/06/22 04/02/22 Rx mL) subcutaneous pen injector metoprolol tartrate 25 mg tablet 25 mg PO BID 04/06/22 04/07/22 04/07/22 06:00 History Allergies Allergy/AdvReac Type Severity Reaction Status Date / Time adhesive tape Allergy Severe ALGY-Bliste Verified 04/02/22 14:38 r levothyroxine sodium Allergy Unknown Vomiting/Di Verified 04/02/22 14:38 arrhea morphine Allergy Unknown itching Verified 04/02/22 14:38 ranitidine Allergy Unknown Vomiting/Di Verified 04/02/22 14:38 arrhea thyroid, pork Allergy Unknown Vomiting/Di Verified 04/02/22 14:38 [From [place] Thyroid] arrhea tramadol Allergy Unknown Itching Verified 04/02/22 14:38 Current Medications Generic Name Dose Route Start Last Admin Trade Name Freq PRN Reason Stop Dose Admin Sodium Chloride 1,000 mls @ 30 mls/hr 04/07/22 06:00 04/07/22 06:29 Sodium Chloride 0.9% IV 04/08/22 05:59 30 mls/hr .Q24H ALEXY Administration PFSH Anesthesia Medical History Environmental and seasonal allergies GERD (gastroesophageal reflux disease) Hiatal hernia History of 2019 novel coronavirus disease (COVID-19) Irritable bowel syndrome (IBS) Mixed stress and urge urinary incontinence No pertinent past medical history neghx: dm,dvt/pe PCP: [facility] PTSD (post-traumatic stress disorder) Seasonal allergies Spinal stenosis Tachyarrhythmia Surgical History H/O esophagogastroduodenoscopy H/O excision of mass (03/17/21) abdominal wall mass H/O laparoscopy (~2017) incarcerated -- [facility] History of carpal tunnel release right History of delivery x 4--1990,1996,2000,2006 History of cholecystectomy (~2015) History of dilation and curettage (~1999) History of thyroidectomy (~2009) Hemithyroidectomy--- has never been able to tolerate medication History of total knee arthroplasty Hx of appendectomy (~1992) Hx of arthroscopic knee surgery 3 surgeries Hx of hernia repair (~02/2021) S/P ACL reconstruction (~2003) right Status post laparoscopic hernia repair (~2012) hiatal Family History Mother Hypertension Stroke Diabetes Hypercholesteremia Sister Hypertension Diabetes Hypercholesteremia Grandmother Hypertension Maternal and Paternal Cancer Paternal --Bladder, liver and brain Ovarian cancer Paternal--dx age unknown Breast cancer Paternal--dx age unknown Brother Cancer Brain tumor Diabetes Hypercholesteremia Hypertension Family/Other No problems noted. Father Hypercholesteremia Denies family history of Colon cancer Uterine cancer Thyroid disease Female Reproductive History Date of last menstrual period: 03/10/22 Data Anesthesia Cardiac Studies: Echocardiogram Ultrasound 04/30/20 Cardiac Event Monitor 02/25/21
--- NOTE | 2022-04-07 06:57 | W.PM.OPSUD ---
Surgery/Procedure H&P Update DATE OF PROCEDURE: April 07, 2022 DATE H&P PERFORMED: 03/23/22 H&P UPDATE INFORMATION: I have reviewed H&P completed within last 30 days, I have examined patient prior to procedure and No changes to prior documentation PREOP DIAGNOSIS: thickened endometrium PLANNED PROCEDURE: Operation Date: 04/07/22 07:00 Proposed Procedures p Hysterosocpy, dialtion and curettage with Myosure [id number] ,R93.89(Not Applicable) - Jordyn Benitez MD s Dilation And Curettage (D&C)(Not Applicable) - Jordyn Benitez MD Related Problem List Diagnoses (1) Thickened endometrium: (2) Postmenopausal bleeding:
[2022-04-07] MEDS: ceFAZolin 2,000 MG in sodium chloride 0.9% (plus) 50 ML 100 MG IV (07:05)
--- NOTE | 2022-04-07 08:18 | PM.OP ---
Operative Report Date of procedure: April 07, 2022 Pre-op diagnosis: Preop Diagnosis thickened endometrium Post-op diagnosis: same Post-op findings: 10 week sized uterus with excessive tissue and a mass at 5:00 Procedure done: hysteroscopy, dilation and curettage with myosure Specimens removed/disposition: endometrial curettings to pathology Surgeon: Jordyn Benitez Anesthesia: General Estimated blood loss (mL): 5 IV fluids (mL): 300 Urine output (mL): 15 Complications: none Findings: 10 week sized uterus, thickened endometrium, lesion at 5:00 100 ml of hysteroscopy deficit Condition: stable Disposition: PACU Procedure: The patient was taken to the operating room where monitored anesthesia was administered and to be adequate. She was prepped and draped in the normal sterile fashion in the dorsal lithotomy position in Raji stirrups. A weighted speculum was placed into the vagina and the anterior lip of the cervix grasped with a single-tooth tenaculum. The uterus was sounded to 10 cm. The cervix was dilated to 16 [place]. The hysteroscope was advanced into the endometrial cavity. There was excessive tissue and a lesion at 5:00 visualized. The MyoSure device was activated and the tissue was removed. Pictures were taken pre and post procedure. All instruments were removed. The patient tolerated the procedure well. Sponge lap and needle counts were correct x3. She was taken to the recovery room in stable condition.
--- NOTE | 2022-04-07 08:28 | PM.DCS ---
Discharge Providers Date of Discharge: April 07, 2022 Attending Provider at Discharge: Jordyn Benitez MD Primary Care Provider: TOBI Henderson Diagnoses at Discharge Discharge Diagnosis (1) Thickened endometrium: Status: Acute (2) Postmenopausal bleeding: Status: Acute Reason for Visit Reason for Visit: Abnormal findings on diagnostic imaging of other s Hospital Course Hospital Course The patient was admitted for surgery. She did well postoperatively and was ready for discharge. Physical Exam Urinary Catheter Management: [place]: Cath Placed During This Visit: yes, but has since been removed by the nurse Urinary Catheter Date of Insertion: 04/07/22 Urinary Catheter Time of Insertion: 07:35 Date Urinary Catheter Removed: 04/07/22 Time Urinary Catheter Discontinued: 08:15 Discharge Data Studies Completed and Pending Pending at discharge Category Date Time Status Pathology: Surgical [PTH] Routine Pth 04/07/22 08:20 Ordered Laboratory Results POC Glucose 135 mg/dL (70-110) H 04/07/22 06:26 Urine HCG, Qual Negative (Negative) 04/07/22 06:32 Vitals Last Vital Signs Temp 97.7 F 04/07/22 08:15 Pulse 88 04/07/22 08:25 Resp 20 H 04/07/22 08:25 BP 170/100 04/07/22 08:25 Pulse Ox 98 04/07/22 08:25 O2 Del Method 04/07/22 08:25 O2 Flow Rate 97 04/07/22 08:25 Discharge Plan Discharge Patient Disposition: Home Condition: Stable Prescriptions: Continued albuterol sulfate [ProAir HFA] 90 mcg/actuation HFA aerosol inhaler 2 puff INHALATION Q6H PRN (Reason: shortness of breath or wheezing) Qty: 8.5 5RF (DME) Custom Molded Orthotics See Rx Instructions .Route .MEDSUPPLY Qty: 1 0RF Rx Instructions: As directed epinephrine 0.3 mg/0.3 mL auto-injector 0.3 mg IM Q10M PRN (Reason: Anaphylaxis) Rx Instructions: for 2 doses fluticasone propionate [Flonase Allergy Relief] 50 mcg/actuation spray,suspension 1 spray INTRANASAL Q12H 90 Days Qty: 18.2 5RF Rx Instructions: administer into each nostril azelastine 137 mcg (0.1 %) aerosol,spray 1 spray INTRANASAL BID 90 Days Qty: 30 3RF (DME) Sole Supports See Rx Instructions .Route .MEDSUPPLY Qty: 1 0RF Rx Instructions: As directed amlodipine 10 mg tablet 10 mg PO DAILY Yanira Aerosphere 160-9-4.8 mcg/actuation HFA aerosol inhaler 2 inh inhalation BID Qty: 10.7 3RF semaglutide 1 mg/dose (2 mg/1.5 mL) pen injector 1 mg SUBCUT .weekly Qty: 3 2RF misoprostol [Cytotec] 200 mcg tablet 600 mcg PO Q6H Qty: 8 0RF Rx Instructions: Start at noon on Wednesday prior to surgery. Take for 8 doses. (DME) Night Splint See Rx Instructions .Route .MEDSUPPLY Qty: 1 0RF Rx Instructions: As directed montelukast 10 mg tablet 10 mg PO QPM 30 Days Qty: 30 5RF pravastatin 20 mg tablet 20 mg PO DAILY 30 Days Qty: 30 5RF levothyroxine [Tirosint] 25 mcg capsule 25 mcg PO DAILY 90 Days Qty: 90 3RF albuterol sulfate 2.5 mg /3 mL (0.083 %) solution for nebulization 2.5 mg inhalation Q6H PRN (Reason: Shortness Of Breath Or Wheezing) benzonatate 100 mg Capsule 200 mg PO Q6H PRN (Reason: Cough) Qty: 60 2RF loratadine 10 mg tablet 10 mg PO DAILY PRN (Reason: Congestion) Qty: 30 0RF pantoprazole 40 mg tablet,delayed release (DR/EC) 40 mg PO DAILY Qty: 14 0RF metoprolol tartrate 25 mg tablet 25 mg PO BID Rx Instructions: TAKE ONE TABLET BY MOUTH TWICE DAILY Discharge Orders: Discharge Order (Routine); Ordered 04/07/22 Ordered By: Jordyn Benitez Referrals: Jordyn Benitez MD [Physician] - Discharge Attestations Time Spent in Discharge Care*: less than 30 min Quality Metrics Clinical Quality Measures [ No reported AMI, CVA or VTE this stay] Coding Level of Care Code Acute Chg FW DC note Diagnoses Thickened endometrium R93.89 Postmenopausal bleeding N95.0
[2022-04-07] MEDS: acetaminophen 325 mg Tablet 650 MG PO (09:30)
--- NOTE | 2022-04-07 13:28 | ANE.PACU2 ---
Inpatient post-anesthesia follow up: Airway intact: Yes Vital signs: Temperature 97.2 F Pulse Rate 86 Respiratory Rate 18 Blood Pressure 140/88 Pulse Oximetry 95 Oxygen Delivery Me thod Room Air Oxygen Flow Rate 6 Fraction of Inspir ed Oxygen Hydration adequate: Yes Nausea and vomiting: No Pain level: 1 Mental status: Baseline
== END 2022-04-07 09:57 | disposition home or self-care (01) ==
PROVIDERS: Anesthesiology; PCP Nurse Practitioner Family; Visit Provider Obstetrics & Gynecology
PROC: 0UDB8ZZ Extraction of Endometrium, Via Natural or Artificial Opening Endoscopic (ICD-10-PCS; CPT 58558; principal; 2022-04-07 07:00)
PROC: (CPT 58120; 2022-04-07 07:00)
DX: R93.89 Abnormal findings on diagnostic imaging of other specified body structures (principal); N95.0 Postmenopausal bleeding; I10 Essential (primary) hypertension; E78.5 Hyperlipidemia, unspecified; K21.9 Gastro-esophageal reflux disease without esophagitis; E11.9 Type 2 diabetes mellitus without complications; E66.01 Morbid (severe) obesity due to excess calories; Z68.41 Body mass index [BMI] 40.0-44.9, adult; Z86.16 Personal history of COVID-19
CPT/HCPCS: 58558; 36416; 81025; 82962; 84703; 88305; J0690; J1100; J1200; J2250; J2405; J2704; J3010; J7030

== ENCOUNTER → 2022-07-29 12:54 | Outpatient (BNVA) | payer MEDICAID, SELFPAY ==
[2021-07-08 10:08] VITALS: BP 158/98; BMI 42.8
== END ==
PROVIDERS: PCP Nurse Practitioner Family; Visit Provider Nurse Practitioner Family
DX: M25.512 Pain in left shoulder (principal)
CPT/HCPCS: 73030

== ENCOUNTER → 2022-08-04 13:46 | Outpatient (BNVA) | payer OTHER, SELFPAY ==
[2021-07-08 10:08] VITALS: BP 158/98; BMI 42.8
== END ==
PROVIDERS: PCP Nurse Practitioner Family; Visit Provider Psychiatry & Neurology Psychiatry
DX: F43.12 Post-traumatic stress disorder, chronic (principal)
CPT/HCPCS: 80061; 83036; 83721

== ENCOUNTER 2022-08-08 13:54 | Outpatient (CLI) | payer OTHER, MEDICAID, SELFPAY ==
[2021-07-08 10:08] VITALS: BP 158/98; BMI 42.8
--- NOTE | 2022-08-08 14:15 | MR_ITS ---
WS: [id number] EXAMINATION: MR shoulder LT wo con* [id number] ORDER DATE: 08/08/2022 2:07 PM COMPARISON: None. HISTORY: M25.512 - Pain in left shoulder CONTRAST: None. TECHNIQUE: Axial T2 STAR, coronal proton density fat sat, sagittal T2 fat sat, sagittal proton densit y fat sat, axial proton density fat sat, coronal T2 fat sat, and coronal T1 performed. After contrast , axial T1 fat sat, coronal T1 fat sat, and sagittal T1 fat sat were performed. FINDINGS: Moderate degenerative arthritis AC joint with mild fluid and edema. Narrowing of the subacromial spac e. Slight impingement on the distal supraspinatus. Tendinopathy distal supraspinatus and infraspinatu s. Normal teres minor. Normal distal subscapularis tendon. Normal biceps tendon in the bicipital groove. Intra-articular biceps tendon appears intact. Biceps la bral anchor appears intact. Glenoid labrum appears grossly normal. MR/MR shoulder LT wo con* [id number] IMPRESSION: 1. Moderate degenerative arthritis AC joint with mild edema. Mild downsloping acromion. 2. Slight impingement on the distal supraspinatus. Tendinopathy in the distal supraspinatus and infraspinatus. 3. Rotator cuff is otherwise normal in appearance. 4. Normal biceps tendon in the bicipital groove. Intra-articular biceps tendon appears intact. 5. No other acute findings.
== END 2022-08-08 13:55 | disposition home or self-care (01) ==
LOC: RAD 14:06
PROVIDERS: PCP Nurse Practitioner Family; Visit Provider Nurse Practitioner Family
DX: M25.512 Pain in left shoulder (principal); M25.519 Pain in unspecified shoulder; M25.612 Stiffness of left shoulder, not elsewhere classified; M19.012 Primary osteoarthritis, left shoulder
CPT/HCPCS: 73221

== ENCOUNTER → 2022-08-19 15:55 | Outpatient (BNVA) | payer OTHER, MEDICAID, SELFPAY ==
[2022-08-11 16:39] VITALS: BP 136/98; BMI 43.1
== END ==
PROVIDERS: PCP Nurse Practitioner Family; Visit Provider Internal Medicine Cardiovascular Disease
DX: R06.02 Shortness of breath (principal)
CPT/HCPCS: 36415; 80048; 83880

== ENCOUNTER 2022-10-05 15:38 | Outpatient (RCR) | payer OTHER, MEDICAID, SELFPAY ==
[2022-08-20 13:46] VITALS: BP 136/98; BMI 43.1
== END 2022-10-23 23:59 | disposition home or self-care (01) ==
LOC: APT 15:38
PROVIDERS: Visit Provider Family Medicine
DX: M75.02 Adhesive capsulitis of left shoulder (principal)
CPT/HCPCS: 97110; 97161

== ENCOUNTER 2022-10-24 06:00 | Outpatient (RCR) | payer OTHER, MEDICAID, SELFPAY ==
[2022-08-20 13:46] VITALS: BP 136/98; BMI 43.1
== END 2022-11-23 23:59 | disposition home or self-care (01) ==
LOC: APT 06:00
PROVIDERS: Visit Provider Family Medicine
DX: M75.02 Adhesive capsulitis of left shoulder (principal)
CPT/HCPCS: 97110

== ENCOUNTER 2022-11-24 06:00 | Outpatient (RCR) | payer OTHER, MEDICAID, SELFPAY ==
[2022-08-20 13:46] VITALS: BP 136/98; BMI 43.1
== END 2022-12-16 23:59 | disposition home or self-care (01) ==
LOC: APT 06:00
PROVIDERS: Visit Provider Family Medicine
DX: M75.02 Adhesive capsulitis of left shoulder (principal)
CPT/HCPCS: 97110; 97140

== ENCOUNTER → 2022-12-01 09:53 | Outpatient (BNVA) | payer OTHER, MEDICAID, SELFPAY ==
[2022-08-20 13:46] VITALS: BP 136/98; BMI 43.1
== END ==
PROVIDERS: Visit Provider Internal Medicine
DX: E03.9 Hypothyroidism, unspecified (principal); E11.9 Type 2 diabetes mellitus without complications; E66.9 Obesity, unspecified
CPT/HCPCS: 36415; 80053; 80061; 83036; 84439; 84443

== ENCOUNTER → 2022-12-07 15:15 | Outpatient (BNVA) | payer OTHER, MEDICAID, SELFPAY ==
[2022-12-02 16:54] VITALS: BP 136/98; BMI 43.1
== END ==
PROVIDERS: Visit Provider Nurse Practitioner Family
DX: E03.9 Hypothyroidism, unspecified (principal); E11.9 Type 2 diabetes mellitus without complications; E66.9 Obesity, unspecified
CPT/HCPCS: 82043

== ENCOUNTER → 2023-01-12 11:05 | Outpatient (BNVA) | payer OTHER, SELFPAY ==
[2022-12-02 16:54] VITALS: BP 136/98; BMI 43.1
== END ==
PROVIDERS: Visit Provider Internal Medicine
DX: E11.9 Type 2 diabetes mellitus without complications (principal); J45.50 Severe persistent asthma, uncomplicated
CPT/HCPCS: 80048; 82951

== ENCOUNTER 2023-02-18 16:17 | Emergency (ER) | payer OTHER, SELFPAY ==
[2023-02-04 10:29] VITALS: BP 136/98; BMI 43.1
[2023-02-18 16:22] VITALS: BP 246/140; PULSE 85; RESP 15; TEMP 36.7; O2SAT 98
--- NOTE | 2023-02-18 16:26 | XRR_ITS ---
PROCEDURE INFORMATION: Exam: XR Chest Exam date and time: 02/18/2023 5:09 PM Age: 52 years old Clinical indication: Cough and dyspnea; Additional info: Dyspnea/cough TECHNIQUE: Imaging protocol: Radiologic exam of the chest. Views: 1 view. COMPARISON: CR XR chest 1V portable [id number] 12/25/2021 5:15 PM FINDINGS: Lungs: Unremarkable. No consolidation. Pleural spaces: Unremarkable. No pleural effusion. No pneumothorax. Heart/Mediastinum: Unremarkable. No cardiomegaly. Bones/joints: Unremarkable. XR/XR chest 1V portable [id number] IMPRESSION: No acute findings.
--- NOTE | 2023-02-18 16:26 | ECG_ITS ---
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 Measurements Intervals [place] Rate: 86 P: 67 TN: 193 QRS: 57 QRSD: 88 T: 76 QT: 369 QTc: 443 Interpretive Statements SINUS RHYTHM NONSPECIFIC T-WAVE ABNORMALITY Compared to ECG 03/11/2021 12:46:41 T-wave abnormality now present Electronically Signed On 02-18-2023 17:30:49 CDT by Ann-Marie Pyle M.D. [id number]
--- NOTE | 2023-02-18 16:32 | ED_ITS ---
Documented by User: Grover Greco DO 02/19/23 05:50 HPI - Chest Pain General: Chief Complaint: Chest Pain Stated Complaint: chest pain Time Seen by Provider: 02/18/23 16:25 Source: patient Mode of arrival: ambulatory History of Present Illness: 52-year-old female presents emergency room complaining of elevated blood pressure and chest discomfort. She was sitting at rest began developed chest discomfort and a headache. Pain is radiating from her center of her chest out the left side of her chest. She called EMS she is given 324 of aspirin and 1 nitro. Is also given DuoNeb for Phenergan. 2 months ago she stopped all of her blood pressure medication she has been trying to control her blood pressure with vitamins. She is also diabetic she is not taking anything for diabetes at this time has been waiting on [employer] to get Ozempic. Her medicine list currently has amlodipine losartan and metoprolol. No known history of coronary artery disease MD complaint: chest pain Onset (ago): minute(s) Timing of current episode: episodic Prior episodes: No Onset: during rest Pain location: substernal Severity: mild Quality: sharp Relieving factors: nothing Exacerbating factors: nothing Associated symptoms: Deny abdominal pain, dyspnea or fever(s) Review of Systems Const: Denies: fever(s) or chills Card: Denies: chest pain Resp: Denies: dyspnea GI: Denies: abdominal pain : Denies: dysuria, urinary frequency or urinary urgency Musc: Denies: neck pain or back pain Skin/Breast: Denies: rash PFSH ED PFSH: Medical History Environmental and seasonal allergies GERD (gastroesophageal reflux disease) Hiatal hernia History of 2019 novel coronavirus disease (COVID-19) Irritable bowel syndrome (IBS) Mixed stress and urge urinary incontinence No pertinent past medical history neghx: dm,dvt/pe PCP: [facility] PTSD (post-traumatic stress disorder) Seasonal allergies Spinal stenosis Tachyarrhythmia Surgical History H/O esophagogastroduodenoscopy H/O excision of mass (03/17/21) abdominal wall mass H/O laparoscopy (~2017) incarcerated -- [facility] History of carpal tunnel release right History of delivery x 4--1990,1996,2000,2006 History of cholecystectomy (~2015) History of dilation and curettage (~1999) History of thyroidectomy (~2009) Hemithyroidectomy--- has never been able to tolerate medication History of total knee arthroplasty Hx of appendectomy (~1992) Hx of arthroscopic knee surgery 3 surgeries Hx of hernia repair (~02/2021) S/P ACL reconstruction (~2003) right Status post laparoscopic hernia repair (~2012) hiatal Family History Mother Hypertension Stroke Diabetes Hypercholesteremia Sister Hypertension Diabetes Hypercholesteremia Grandmother Hypertension Maternal and Paternal Cancer Paternal --Bladder, liver and brain Ovarian cancer Paternal--dx age unknown Breast cancer Paternal--dx age unknown Brother Cancer Brain tumor Diabetes Hypercholesteremia Hypertension Family/Other No problems noted. Father Hypercholesteremia Denies family history of Colon cancer Uterine cancer Thyroid disease Social History Smoking and tobacco/nicotine status: former use of tobacco/nicotine Quit status (tobacco/nicotine): has quit using Year quit tobacco: 2001 Former quit date comment: 1.5 PPD for 12 years Second hand smoke exposure: No Alcohol intake: never Substance/Drug Use: never Adopted: No Caregiver/support person: Yes (Afghan in Home health 5 days per week 3 hrs) Lives independently: Yes Household members: spouse and children Housing: House Marital status: Marital status details: is in and out of the home Number of children: 5 Number of grandchildren: 2 Highest education level completed: Some College, No Degree service: Yes status: Discharged branch: [employer] branch details: 6 years Assignments: Inside [employer] ([employer]) Current occupational status: disabled Current occupational exposures/hazards: No Pets and animals: Yes Pets & animals: cat(s) Pets & animal details: 3 cats Leisure activites: games and other Leisure activities details: make jokes, paint Do you think of yourself as: Straight/Heterosexual Current gender identity: Female Cindy/Synagogue: [employer] Special cindy needs: No Agree to transfusion: Yes Female Reproductive History: Para: 5 Spontaneous abortions: Yes (at 20 weeks) Physical Exam Const: COMMON NORMALS: no acute distress GENERAL APPEARANCE: cooperative and comfortable NUTRITIONAL APPEARANCE: obese morbidly obese ORIENTATION/CONSCIOUSNESS: Yes awake, Yes oriented to person, Yes oriented to place and Yes oriented to time HENMT: COMMON NORMALS: normocephalic, atraumatic and hearing grossly normal bilaterally HEAD & SCALP: normocephalic and atraumatic Resp: COMMON NORMALS: normal respiratory effort, No retractions, No use of accessory muscles and clear to auscultation bilaterally AUSCULTATION: clear to auscultation bilaterally Cardio: COMMON NORMALS: regular rate, regular rhythm and No murmurs present (Cardio) RATE: regular rate RHYTHM: regular rhythm GI: COMMON NORMALS: Soft to palpation and No hepatosplenomegaly present AUSCULTATION: Yes normoactive bowel sounds PALPATION: Yes Soft to palpation, No Tenderness to palpation present (GI), No Guarding due to palpation present (GI) and Yes No hepatosplenomegaly present Extremity: COMMON NORMALS: normal to inspection, capillary refill normal, no clubbing, cyanosis or edema, no calf tenderness and no pedal edema Neuro: SENSORIUM/ORIENTATION: Yes oriented to person, Yes oriented to place and Yes oriented to time OTHER: Neurologically intact no focal neurologic deficits noted Skin: COMMON NORMALS: no rashes or lesions noted GENERAL SKIN EXAM: no haim hes or lesions noted Course Vital Signs: Vital signs: Vital Signs Temperature 98.0 F 02/18/23 16:22 Pulse Rate 94 02/18/23 20:09 Respiratory Rate 15 02/18/23 16:22 Blood Pressure 146/96 02/18/23 20:09 Pulse Oximetry 98 02/18/23 20:09 Oxygen Delivery Me thod Room Air 02/18/23 19:09 MDM - Chest Pain Medical Decision Making Care signed out to Dr. Vicente at change of shift. See final notes for diagnosis and disposition. Patient presents to the ER with complaints of chest pain and was noted to have extremely high blood pressure. Patient was given multiple doses of medicine including but not limited to amlodipine 10 mg, hydralazine 20 mg IV x2 labetalol 10 mg, lisinopril 20 mg, her blood pressure was eventually controlled at 132/62 patient is lab work come back benign. During his time patient did get nauseous and was given 25 mg of Phenergan. Feeling much better and is ready to be discharged home to follow-up with her PCP. Medical Records I reviewed the patient's medical records. Lab Data I reviewed the patient's lab results. 02/18/23 17:05 02/18/23 17:05 Radiology Impressions Chest X-Ray 02/18/23 16: IMPRESSION: No acute findings. Laboratory Results WBC 7.58 10^3/uL (3.29-11.43) 02/18/23 17:05 RBC 4.50 10^6/uL (3.85-5.65) 02/18/23 17:05 Hgb 13.90 g/dL (11.27-16.99) 02/18/23 17:05 Hct 42.6 % (36-47) 02/18/23 17:05 MCV 94.7 fl (85-98) 02/18/23 17:05 MCH 30.9 pg (27-33) 02/18/23 17:05 MCHC 32.6 g/dL (30-55) 02/18/23 17:05 RDW 13.2 % (12.1-15.1) 02/18/23 17:05 Plt Count 191 10^3/cmm (157-399) 02/18/23 17:05 MPV 11.8 fL (7.4-10.4) H 02/18/23 17:05 Neut % (Auto) 66.1 % 02/18/23 17:05 Lymph % (Auto) 24.3 % 02/18/23 17:05 [place] % (Auto) 7.8 % 02/18/23 17:05 Eos % (Auto) 0.1 % 02/18/23 17:05 Baso % (Auto) 0.4 % 02/18/23 17:05 Neut # (Auto) 5.01 10^3/uL (1.8-7.7) 02/18/23 17:05 Lymph # (Auto) 1.8 10^3/uL (0.8-4.8) 02/18/23 17:05 [place] # (Auto) 0.6 10^3/uL (0.2-0.9) 02/18/23 17:05 Eos # (Auto) 0.0 10^3/uL (0.0-0.8) 02/18/23 17:05 Baso # (Auto) 0.0 10^3/uL (0.0-0.1) 02/18/23 17:05 Nucleated RBC % (auto) 0 % 02/18/23 17:05 Nucleated RBCs # 0.0 /100WBC 02/18/23 17:05 Sodium 137 mmol/L (136-145) 02/18/23 17:05 Potassium 4.5 mmol/L (3.5-5.1) 02/18/23 17:05 Chloride 100 mmol/L (98-107) 02/18/23 17:05 Carbon Dioxide 25 mmol/L (22-29) 02/18/23 17:05 Anion Gap 16.5 (5-19) 02/18/23 17:05 BUN 15 mg/dL (6-20) 02/18/23 17:05 Creatinine 0.8 mg/dL (0.5-0.9) 02/18/23 17:05 GFR Calculation 75.6 mL/min (90-130) L 02/18/23 17:05 Glucose 159 mg/dL (65-115) H 02/18/23 17:05 POC Glucose 167 mg/dL (70-110) H 02/18/23 16:54 Calculated Osmolality 288 mOsm/kg (285-295) 02/18/23 17:05 Calcium 8.8 mg/dL (8.5-10.5) 02/18/23 17:05 Total Bilirubin 0.3 mg/dL (0.15-1.2) 02/18/23 17:05 AST 18 U/L (0-32) 02/18/23 17:05 ALT 32 U/L (0-33) 02/18/23 17:05 Alkaline Phosphatase 102 U/L (35-105) 02/18/23 17:05 Troponin T Baseline < 6 ng/L (0-10) 02/18/23 17:05 Troponin T 120 Minute 6.0 ng/L (0-10) 02/18/23 19:06 Delta Troponin T 0.12611 ABS# (0-10) 02/18/23 19:06 Total Protein 6.9 g/dL (6.6-8.7) 02/18/23 17:05 Albumin 4.2 g/dL (3.5-5.2) 02/18/23 17:05 Globulin 2.7 g/dL (1.3-4.6) 02/18/23 17:05 Discharge Plan Discharge Patient Disposition: Home Clinical Impression: Atypical chest pain Hypertension Qualifiers: Hypertension type: unspecified Qualified Code(s): I10 - Essential (primary) hypertension Condition: Stable Prescriptions: No Action albuterol sulfate [ProAir HFA] 90 mcg/actuation HFA aerosol inhaler 2 puff INHALATION Q6H PRN (Reason: shortness of breath or wheezing) Qty: 8.5 5RF (DME) Custom Molded Orthotics See Rx Instructions .Route .MEDSUPPLY Qty: 1 0RF Rx Instructions: As directed fluticasone propionate [Flonase Allergy Relief] 50 mcg/actuation spray,suspension 1 spray INTRANASAL Q12H 90 Days Qty: 18.2 5RF Rx Instructions: administer into each nostril azelastine 137 mcg (0.1 %) aerosol,spray 1 spray INTRANASAL BID 90 Days Qty: 30 3RF (DME) Sole Supports See Rx Instructions .Route .MEDSUPPLY Qty: 1 0RF Rx Instructions: As directed amlodipine 10 mg tablet 10 mg PO DAILY metoprolol tartrate 50 mg tablet 50 mg PO BID Qty: 180 3RF (DME) Diabetic Shoes with 3 pairs of inserts See Rx Instructions .Route .MEDSUPPLY Qty: 1 0RF Rx Instructions: As directed by HOME epinephrine 0.3 mg/0.3 mL auto-injector 0.3 mg IM Q10M PRN (Reason: Anaphylaxis) Qty: 2 2RF Rx Instructions: for 2 doses (DME) Night Splint See Rx Instructions .Route .MEDSUPPLY Qty: 1 0RF Rx Instructions: As directed pravastatin 20 mg tablet 20 mg PO DAILY 30 Days Qty: 30 5RF pantoprazole 40 mg tablet,delayed release (DR/EC) 40 mg PO DAILY Qty: 30 5RF Ozempic 2 mg/dose (8 mg/3 mL) pen injector See Rx Instructions .ROUTE .COMPLEX Qty: 3 2RF Dose Instruction: INJECT ONE MG UNDER SKIN WEEKLY Rx Instructions: INJECT TWO MG UNDER SKIN WEEKLY triamcinolone acetonide 0.1 % ointment 1 applic topical BID Qty: 15 0RF ketoconazole 2 % cream 1 applic topical BID Qty: 15 0RF prednisone 20 mg tablet 20 mg PO BID Qty: 10 0RF montelukast 10 mg tablet 10 mg PO QPM 30 Days Qty: 30 5RF Breztri Aerosphere 160-9-4.8 mcg/actuation HFA aerosol inhaler 2 inh inhalation BID Qty: 10.7 3RF Fasenra Pen 30 mg/mL auto-injector 30 mg SUBCUT .Every 8 weeks Qty: 3 5RF Rx Instructions: Maintenance dose (DME) blood-glucose meter [Accu-Chek Guide Glucose Meter] Misc See Rx Instructions .Route Qty: 1 0RF Rx Instructions: As directed (DME) Accu-Chek Guide test strips Strip See Rx Instructions .Route Qty: 100 0RF Rx Instructions: As directed levothyroxine 25 mcg tablet See Rx Instructions .ROUTE .COMPLEX Qty: 90 3RF Dose Instruction: TAKE ONE TABLET BY MOUTH DAILY Rx Instructions: TAKE ONE TABLET BY MOUTH DAILY losartan 25 mg tablet 25 mg PO DAILY Qty: 90 3RF albuterol sulfate 2.5 mg /3 mL (0.083 %) solution for nebulization 2.5 mg inhalation Q6H PRN (Reason: Shortness Of Breath Or Wheezing) benzonatate 100 mg Capsule 200 mg PO Q6H PRN (Reason: Cough) Qty: 60 2RF Tylenol 325 mg Tablet 650 mg PO QID PRN (Reason: Pain) Discharge Orders: Discharge ED (Routine); Ordered 02/18/23 Ordered By: Davi Vicente Discharge Diet: Full LIquid Discharge Activity: Increase activity as tolerated Patient Instructions: Chest Pain - Noncardiac, Hypertension (ED) Activity Restrictions/Additional Instructions: Please continue take all your Medicine as prescribed. Please keep a blood pressure log at least 2 recordings per day. Please follow-up with your family practice doctor within the next 7 days for further evaluation and treatment. If your chest pain Breze turns or symptoms worsen please return to the ER for further evaluation. Coding Level of Care Code ED Clearance Cutter for Mago Fletcher Documented by User: Davi Vicente DO 02/19/23 03:12 HPI - Chest Pain General: Chief Complaint: Chest Pain Stated Complaint: chest pain Time Seen by Provider: 02/18/23 16:25 PFS ED PFSH: Medical History Environmental and seasonal allergies GERD (gastroesophageal reflux disease) Hiatal hernia History of 2019 novel coronavirus disease (COVID-19) Irritable bowel syndrome (IBS) Mixed stress and urge urinary incontinence No pertinent past medical history neghx: dm,dvt/pe PCP: [facility] PTSD (post-traumatic stress disorder) Seasonal allergies Spinal stenosis Tachyarrhythmia Surgical History H/O esophagogastroduodenoscopy H/O excision of mass (03/17/21) abdominal wall mass H/O laparoscopy (~2017) incarcerated -- [facility]nie History of carpal tunnel release right History of delivery x 4--1990,1996,2000,2006 History of cholecystectomy (~2015) History of dilation and curettage (~1999) History of thyroidectomy (~2009) Hemithyroidectomy--- has never been able to tolerate medication History of total knee arthroplasty Hx of appendectomy (~1992) Hx of arthroscopic knee surgery 3 surgeries Hx of hernia repair (~02/2021) S/P ACL reconstruction (~2003) right Status post laparoscopic hernia repair (~2012) hiatal Family History Mother Hypertension Stroke Diabetes Hypercholesteremia Sister Hypertension Diabetes Hypercholesteremia Grandmother Hypertension Maternal and Paternal Cancer Paternal --Bladder, liver and brain Ovarian cancer Paternal--dx age unknown Breast cancer Paternal--dx age unknown Brother Cancer Brain tumor Diabetes Hypercholesteremia Hypertension Family/Other No problems noted. Father Hypercholesteremia Denies family history of Colon cancer Uterine cancer Thyroid disease Social History Smoking and tobacco/nicotine status: former use of tobacco/nicotine Quit status (tobacco/nicotine): has quit using Year quit tobacco: 2001 Former quit date comment: 1.5 PPD for 12 years Second hand smoke exposure: No Alcohol intake: never Substance/Drug Use: never Adopted: No Caregiver/support person: Yes (Afghan in Home health 5 days per week 3 hrs) Lives independently: Yes Household members: spouse and children Housing: House Marital status: Marital status details: is in and out of the home Number of children: 5 Number of grandchildren: 2 Highest education level completed: Some College, No Degree service: Yes status: Discharged branch: [employer] branch details: 6 years 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: Inside [employer] ([employer]) Current occupational status: disabled Current occupational exposures/hazards: No Pets and animals: Yes Pets & animals: cat(s) Pets & animal details: 3 cats Leisure activites: games and other Leisure activities details: make jokes, paint Do you think of yourself as: Straight/Heterosexual Current gender identity: Female Cindy/Synagogue: [employer] Special cindy needs: No Agree to transfusion: Yes Course Vital Signs: Vital signs: Vital Signs Temperature 98.0 F 02/18/23 16:22 Pulse Rate 94 02/18/23 20:09 Respiratory Rate 15 02/18/23 16:22 Blood Pressure 146/96 02/18/23 20:09 Pulse Oximetry 98 02/18/23 20:09 Oxygen Delivery Me thod Room Air 02/18/23 19:09 MDM - Chest Pain Medical Decision Making Patient presents to the ER with complaints of chest pain and was noted to have extremely high blood pressure. Patient was given multiple doses of medicine in cluding but not limited to amlodipine 10 mg, hydralazine 20 mg IV x2 labetalol 10 mg, lisinopril 20 mg, her blood pressure was eventually controlled at 132/62 patient is lab work come back benign. During his time patient did get nauseous and was given 25 mg of Phenergan. Feeling much better and is ready to be discharged home to follow-up with her PCP. Differential Diagnosis Unlikely acute massive pulmonary embolism, acute respiratory failure, acute myocardial infarction, cardiac arrest or sudden cardiac Lab Data 02/18/23 17:05 02/18/23 17:05 Radiology Impressions Chest X-Ray 02/18/23 16:26 IMPRESSION: No acute findings. Laboratory Results WBC 7.58 10^3/uL (3.29-11.43) 02/18/23 17:05 RBC 4.50 10^6/uL (3.85-5.65) 02/18/23 17:05 Hgb 13.90 g/dL (11.27-16.99) 02/18/23 17:05 Hct 42.6 % (36-47) 02/18/23 17:05 MCV 94.7 fl (85-98) 02/18/23 17:05 MCH 30.9 pg (27-33) 02/18/23 17:05 MCHC 32.6 g/dL (30-55) 02/18/23 17:05 RDW 13.2 % (12.1-15.1) 02/18/23 17:05 Plt Count 191 10^3/cmm (157-399) 02/18/23 17:05 MPV 11.8 fL (7.4-10.4) H 02/18/23 17:05 Neut % (Auto) 66.1 % 02/18/23 17:05 Lymph % (Auto) 24.3 % 02/18/23 17:05 [place] % (Auto) 7.8 % 02/18/23 17:05 Eos % (Auto) 0.1 % 02/18/23 17:05 Baso % (Auto) 0.4 % 02/18/23 17:05 Neut # (Auto) 5.01 10^3/uL (1.8-7.7) 02/18/23 17:05 Lymph # (Auto) 1.8 10^3/uL (0.8-4.8) 02/18/23 17:05 [place] # (Auto) 0.6 10^3/uL (0.2-0.9) 02/18/23 17:05 Eos # (Auto) 0.0 10^3/uL (0.0-0.8) 02/18/23 17:05 Baso # (Auto) 0.0 10^3/uL (0.0-0.1) 02/18/23 17:05 Nucleated RBC % (auto) 0 % 02/18/23 17:05 Nucleated RBCs # 0.0 /100WBC 02/18/23 17:05 Sodium 137 mmol/L (136-145) 02/18/23 17:05 Potassium 4.5 mmol/L (3.5-5.1) 02/18/23 17:05 Chloride 100 mmol/L (98-107) 02/18/23 17:05 Carbon Dioxide 25 mmol/L (22-29) 02/18/23 17:05 Anion Gap 16.5 (5-19) 02/18/23 17:05 BUN 15 mg/dL (6-20) 02/18/23 17:05 Creatinine 0.8 mg/dL (0.5-0.9) 02/18/23 17:05 GFR Calculation 75.6 mL/min (90-130) L 02/18/23 17:05 Glucose 159 mg/dL (65-115) H 02/18/23 17:05 POC Glucose 167 mg/dL (70-110) H 02/18/23 16:54 Calculated Osmolality 288 mOsm/kg (285-295) 02/18/23 17:05 Calcium 8.8 mg/dL (8.5-10.5) 02/18/23 17:05 Total Bilirubin 0.3 mg/dL (0.15-1.2) 02/18/23 17:05 AST 18 U/L (0-32) 02/18/23 17:05 ALT 32 U/L (0-33) 02/18/23 17:05 Alkaline Phosphatase 102 U/L (35-105) 02/18/23 17:05 Troponin T Baseline < 6 ng/L (0-10) 02/18/23 17:05 Troponin T 120 Minute 6.0 ng/L (0-10) 02/18/23 19:06 Delta Troponin T 0.85982 ABS# (0-10) 02/18/23 19:06 Total Protein 6.9 g/dL (6.6-8.7) 02/18/23 17:05 Albumin 4.2 g/dL (3.5-5.2) 02/18/23 17:05 Globulin 2.7 g/dL (1.3-4.6) 02/18/23 17:05 All radiology interpretation(s) finalized by discharge Discharge Plan Discharge Patient Disposition: Home Clinical Impression: Atypical chest pain Hypertension Qualifiers: Hypertension type: unspecified Qualified Code(s): I10 - Essential (primary) hypertension Condition: Stable Prescriptions: No Action albuterol sulfate [ProAir HFA] 90 mcg/actuation HFA aerosol inhaler 2 puff INHALATION Q6H PRN (Reason: shortness of breath or wheezing) Qty: 8.5 5RF (DME) Custom Molded Orthotics See Rx Instructions .Route .MEDSUPPLY Qty: 1 0RF Rx Instructions: As directed fluticasone propionate [Flonase Allergy Relief] 50 mcg/actuation spray,suspe nsion 1 spray INTRANASAL Q12H 90 Days Qty: 18.2 5RF Rx Instructions: administer into each nostril azelastine 137 mcg (0.1 %) aerosol,spray 1 spray INTRANASAL BID 90 Days Qty: 30 3RF (DME) Sole Supports See Rx Instructions .Route .MEDSUPPLY Qty: 1 0RF Rx Instructions: As directed amlodipine 10 mg tablet 10 mg PO DAILY metoprolol tartrate 50 mg tablet 50 mg PO BID Qty: 180 3RF (DME) Diabetic Shoes with 3 pairs of inserts See Rx Instructions .Route .MEDSUPPLY Qty: 1 0RF Rx Instructions: As directed by HOME epinephrine 0.3 mg/0.3 mL auto-injector 0.3 mg IM Q10M PRN (Reason: Anaphylaxis) Qty: 2 2RF Rx Instructions: for 2 doses (DME) Night Splint See Rx Instructions .Route .MEDSUPPLY Qty: 1 0RF Rx Instructions: As directed pravastatin 20 mg tablet 20 mg PO DAILY 30 Days Qty: 30 5RF pantoprazole 40 mg tablet,delayed release (DR/EC) 40 mg PO DAILY Qty: 30 5RF Ozempic 2 mg/dose (8 mg/3 mL) pen injector See Rx Instructions .ROUTE .COMPLEX Qty: 3 2RF Dose Instruction: INJECT ONE MG UNDER SKIN WEEKLY Rx Instructions: INJECT TWO MG UNDER SKIN WEEKLY triamcinolone acetonide 0.1 % ointment 1 applic topical BID Qty: 15 0RF ketoconazole 2 % cream 1 applic topical BID Qty: 15 0RF prednisone 20 mg tablet 20 mg PO BID Qty: 10 0RF montelukast 10 mg tablet 10 mg PO QPM 30 Days Qty: 30 5RF Breztri Aerosphere 160-9-4.8 mcg/actuation HFA aerosol inhaler 2 inh inhalation BID Qty: 10.7 3RF Fasenra Pen 30 mg/mL auto-injector 30 mg SUBCUT .Every 8 weeks Qty: 3 5RF Rx Instructions: Maintenance dose (DME) blood-glucose meter [Accu-Chek Guide Glucose Meter] Misc See Rx Instructions .Route Qty: 1 0RF Rx Instructions: As directed (DME) Accu-Chek Guide test strips Strip See Rx Instructions .Route Qty: 100 0RF Rx Instructions: As directed levothyroxine 25 mcg tablet See Rx Instructions .ROUTE .COMPLEX Qty: 90 3RF Dose Instruction: TAKE ONE TABLET BY MOUTH DAILY Rx Instructions: TAKE ONE TABLET BY MOUTH DAILY losartan 25 mg tablet 25 mg PO DAILY Qty: 90 3RF albuterol sulfate 2.5 mg /3 mL (0.083 %) solution for nebulization 2.5 mg inhalation Q6H PRN (Reason: Shortness Of Breath Or Wheezing) benzonatate 100 mg Capsule 200 mg PO Q6H PRN (Reason: Cough) Qty: 60 2RF Tylenol 325 mg Tablet 650 mg PO QID PRN (Reason: Pain) Discharge Orders: Discharge ED (Routine); Ordered 02/18/23 Ordered By: Davi Vicente Discharge Diet: Full LIquid Discharge Activity: Increase activity as tolerated Patient Instructions: Chest Pain - Noncardiac, Hypertension (ED) Activity Restrictions/Additional Instructions: Please continue take all your Medicine as prescribed. Please keep a blood pressure log at least 2 recordings per day. Please follow-up with your family practice doctor within the next 7 days for further evaluation and treatment. If your chest pain Breze turns or symptoms worsen please return to the ER for further evaluation. Coding Level of Care Code ED Clearance Cutter for Mago Fletcher
[2023-02-18] MEDS: aspirin 81 mg Chew Tablet 324 MG PO (16:41)
[2023-02-18 16:57] LABS: Glucose Point of Care 167 mg/dL (70-110)
[2023-02-18] MEDS: lisinopril 20 mg Tablet PO (17:09)
[2023-02-18] MEDS: amlodipine 10 mg Tablet PO (17:09)
[2023-02-18] MEDS: hyDRALAzine 20 mg/mL INJ 1 mL IVP (17:10)
[2023-02-18] MEDS: labetalol 5 mg/mL SDV 20mL 10 MG IVP (17:11)
[2023-02-18 17:18] LABS: Basophils % 0.4 %; Eosinophils % 0.1 %; Hematocrit 42.6 % (36-47); Lymphocytes # 1.8 10^3/uL (0.8-4.8); Lymphocytes % 24.3 %; Mean Corpuscular HGB Conc 32.6 g/dL (30-55); Mean Corpuscular Hemoglobin 30.9 pg (27-33); Mean Corpuscular Volume 94.7 fl (85-98); Mean Platelet Volume 11.8 fL (7.4-10.4); Monocytes # 0.6 10^3/uL (0.2-0.9); Monocytes % 7.8 %; Neutrophils # 5.01 10^3/uL (1.8-7.7); Neutrophils % 66.1 %; Nucleated Red Blood Cells % 0 %; Platelet Count 191 10^3/cmm (157-399); Red Cell Distribution Width 13.2 % (12.1-15.1); White Blood Count 7.58 10^3/uL (3.29-11.43)
[2023-02-18 17:30] LABS: Alanine Aminotransferase 32 U/L (0-33); Albumin Level 4.2 g/dL (3.5-5.2); Alkaline Phosphatase 102 U/L (35-105); Aspartate Amino Transferase 18 U/L (0-32); Blood Urea Nitrogen 15 mg/dL (6-20); Calcium 8.8 mg/dL (8.5-10.5); Carbon Dioxide 25 mmol/L (22-29); Chloride 100 mmol/L (98-107); Globulin 2.7 g/dL (1.3-4.6); Glomerular Filtration Rate 75.6 mL/min (90-130); Glucose 159 mg/dL (65-115); Osmolality Calculated 288 mOsm/kg (285-295); Sodium 137 mmol/L (136-145); Total Bilirubin 0.3 mg/dL (0.15-1.2); Total Protein 6.9 g/dL (6.6-8.7)
[2023-02-18 17:34] LABS: Anion Gap 16.5 (5-19); Potassium 4.5 mmol/L (3.5-5.1)
[2023-02-18 17:39] LABS: Troponin(5th) Baseline < 6 ng/L (0-10)
[2023-02-18 17:55] LABS: Slide Review Slide Review Perform
--- NOTE | 2023-02-18 18:26 | ECG_ITS ---
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 Measurements Intervals [place] Rate: 101 P: 56 AK: 193 QRS: 49 QRSD: 90 T: 66 QT: 348 QTc: 453 Interpretive Statements SINUS TACHYCARDIA NONSPECIFIC T-WAVE ABNORMALITY ABNORMAL RHYTHM ECG Compared to ECG 02/18/2023 16:45:46 Sinus rhythm no longer present T-wave abnormality still present Electronically Signed On 02-18-2023 20:00:15 CDT by Ann-Marie Pyle M.D. [id number]
[2023-02-18] MEDS: promethazine 25 mg/mL SDV 1 mL IM (18:40)
[2023-02-18 19:09] VITALS: BP 132/62; PULSE 93; O2SAT 97
[2023-02-18 19:15] VITALS: BP 113/71; PULSE 88; O2SAT 96
[2023-02-18 19:30] VITALS: BP 109/79; PULSE 86; O2SAT 97
[2023-02-18 19:41] LABS: Troponin 5 2HR Delta 0.00001 ABS# (0-10)
[2023-02-18 19:45] VITALS: BP 122/85; PULSE 91; O2SAT 96
[2023-02-18 20:09] VITALS: BP 146/96; PULSE 94; O2SAT 98
== END 2023-02-18 20:08 | disposition home or self-care (01) ==
PROVIDERS: Emergency Provider Family Medicine
DX: R07.89 Other chest pain (principal); I10 Essential (primary) hypertension; Z87.891 Personal history of nicotine dependence
CPT/HCPCS: 36415; 36416; 71045; 80053; 82962; 84484; 85025; 93005; 96372; 96374; 96375; 99285; J0360; J2550; J3490

== ENCOUNTER → 2023-02-26 08:19 | Outpatient (BNVA) | payer OTHER, SELFPAY ==
[2023-02-26 07:58] VITALS: BP 136/98; BMI 43.1
== END ==
PROVIDERS: Visit Provider Internal Medicine
DX: E03.9 Hypothyroidism, unspecified (principal); E11.9 Type 2 diabetes mellitus without complications; E66.9 Obesity, unspecified; E11.42 Type 2 diabetes mellitus with diabetic polyneuropathy
CPT/HCPCS: 80053; 80061; 82043; 83036; 84439; 84443

== ENCOUNTER 2023-04-02 10:17 | Outpatient (CLI) | payer OTHER, MEDICAID, SELFPAY ==
[2023-02-26 07:58] VITALS: BP 136/98; BMI 43.1
[2023-04-02 10:40] VITALS: BMI 42.6
--- NOTE | 2023-04-02 10:41 | NMCV_ITS ---
NM nathanael perf SPECT r/s* [id number] Ani Bermudez Age: 52 Gender: F : 1970 Exam Date: 04/02/2023 10:41 Ordering Phys: Tobi Gaitan MD ([email or web address]) Technologist: JOVANNY Collado Exam Location: [facility] Indications: CORONARY ANGIOPLASTY STATUS STRESS TEST Please see separate stress test report in [facility] for full findings IMAGE PROTOCOL Rest/Stress 1 Dobutamine Day Radiopharmaceutical Dose (mCi) Administration Site Administered by Rest: Tc-99m 10.4 IV JOVANNY Casanova Sestamibi Stress:Tc-99m 33.0 IV JOVANNY Collado Sesshannonmimahesh Rest: 02-Apr-2023 60 Discovery 630 Stress: 02-Apr-2023 15 Discovery 630 Radiopharmaceutical was injected at 85 % maximum heart rate. Images obtained in supine and prone position. SPECT RESULTS Technical Quality: Good Raw Data Analysis: Breast attenuation Image Corrections: No attenuation or motion correction applied Summed Stress Score: 0 Summed Rest Score: 0 Summed Difference Score: 0 PERFUSION FINDINGS Fairly uniform myocardial tracer uptake with no significant perfusion abnormalities FUNCTIONAL RESULTS (calculated via Gated SPECT) Stress Image LV EF (%): 73 Stress EDV (mL):78 TID: 0.91 Stress ESV (mL):21 FUNCTIONAL FINDINGS: Segmental wall motion analysis revealing no gross wall motion abnormalities IMPRESSIONS 1. Myocardial perfusion imaging revealing uniform myocardial tracer uptake with no significant perfusion abnormalities 2. Normal LV ejection fraction of 73% 3. LV wall motion analysis revealing no gross wall motion abnormalities. 4. Normal LV volume Low probability for coronary ischemia, based on the above findings Compared to the previous study from 08/16/2017, the ischemic score with the current study is zero. Dr Tobi Gaitan MD [facility] (Electronically Signed) Final Date: 02 April 2023 14:04 S
--- NOTE | 2023-04-02 10:41 | ECG_ITS ---
[facility] Test Date: 2023-04-02 Pat Name: Ani Bermudez Department: Room: Gender: Female Rn Faculty: Itzel Frostzfus : 1970 Requested By: Tobi Gaitan Order Number: [id number] Namrata MD: Tobi Gaitan M.D. Interpretive Statements NAME OF STUDY: DOBUTAMINE SESTAMIBI STRESS TEST INDICATION: [Chest Pressure; Chest Pressure] PROCEDURE: At the baseline, the blood pressure was 149/99 with a heart rate of 79. The electrocardiogram showed sinus rhythm with a diffuse nonspecific T wave changes. Sinus arrhythmia The dobutamine was infused over a period of 8 minutes and 46 seconds. The maximum heart rate obtained was 146 (86% of the maximum predicted heart rate). The blood pressure at that time was 164/88 mmHg. The patient did not have any chest pain or any significant electrocardiogram changes with the dobutamine infusion.The physical examination remained unchanged. No arrhythmias were seen on the monitor. Sestamibi was injected at the peak heart rate During the recovery phase, the patient did not have any specific symptoms. The blood pressure at the end of the recovery phase was 180/90 with a heart rate of 120 per minute. CONCLUSION: 1. Normal EKG response to the dobutamine infusion 2. No dobutamine induced chest pain or cardiac arrhythmia 3. Normal heart rate and blood pressure response to dobutamine infusion 4. Sestamibi/Sestamibi perfusion scan pending; see separate report. Electronically Signed On 04-09-2023 11:22:43 COMPUTATIONAL PHYSICIST by Tobi Gaitan M.D. [email or web address]
[2023-04-02] MEDS: DOBUTtamine 200 MG in sodium chloride 0.9% 34 ML 17.96 MG IV (12:16)
[2023-04-02 12:39] VITALS: BP 166/100; PULSE 90
== END 2023-04-02 10:18 | disposition home or self-care (01) ==
LOC: CDL 10:17
PROVIDERS: PCP Internal Medicine Cardiovascular Disease; Visit Provider Internal Medicine Cardiovascular Disease
DX: R07.9 Chest pain, unspecified (principal); Z98.61 Coronary angioplasty status; R06.02 Shortness of breath
CPT/HCPCS: 36415; 78452; 93017; 96374; A9500; J1250; J7050

== ENCOUNTER → 2023-05-05 12:55 | Outpatient (BNVA) | payer MEDICAID, SELFPAY ==
[2023-04-15 09:57] VITALS: BP 136/98; BMI 43.1
== END ==
PROVIDERS: Visit Provider Podiatrist Foot & Ankle Surgery
DX: E11.42 Type 2 diabetes mellitus with diabetic polyneuropathy (principal); L60.3 Nail dystrophy; M21.41 Flat foot [pes planus] (acquired), right foot; M21.42 Flat foot [pes planus] (acquired), left foot; L84 Corns and callosities; L60.8 Other nail disorders
CPT/HCPCS: 99213

== ENCOUNTER → 2023-06-11 11:01 | Outpatient (BNVA) | payer OTHER, SELFPAY ==
[2023-05-25 08:15] VITALS: BP 136/98; BMI 43.1
== END ==
PROVIDERS: Visit Provider Internal Medicine
DX: E11.9 Type 2 diabetes mellitus without complications (principal); E03.9 Hypothyroidism, unspecified; Z79.899 Other long term (current) drug therapy
CPT/HCPCS: 80053; 80061; 82043; 83036; 84439; 84443

== ENCOUNTER → 2023-11-04 15:10 | Outpatient (BNVA) | payer OTHER, MEDICAID, SELFPAY ==
[2023-05-25 08:15] VITALS: BP 136/98; BMI 43.1
== END ==
PROVIDERS: PCP Nurse Practitioner Family; Visit Provider Nurse Practitioner Family
DX: R19.7 Diarrhea, unspecified (principal); R10.9 Unspecified abdominal pain
CPT/HCPCS: 80053; 85025

== ENCOUNTER → 2023-11-05 11:26 | Outpatient (BNVA) | payer OTHER, MEDICAID, SELFPAY ==
[2023-05-25 08:15] VITALS: BP 136/98; BMI 43.1
== END ==
PROVIDERS: PCP Nurse Practitioner Family; Visit Provider Nurse Practitioner Family
DX: R19.7 Diarrhea, unspecified (principal); R10.9 Unspecified abdominal pain
CPT/HCPCS: 87045; 87427; 87449

== ENCOUNTER → 2024-02-28 13:42 | Outpatient (BNVA) | payer OTHER, SELFPAY ==
[2024-02-22 15:59] VITALS: BP 136/98; BMI 43.1
== END ==
PROVIDERS: PCP Nurse Practitioner Family; Visit Provider Clinical Nurse Specialist Adult Health
DX: I10 Essential (primary) hypertension (principal); E11.42 Type 2 diabetes mellitus with diabetic polyneuropathy; E78.5 Hyperlipidemia, unspecified; E03.9 Hypothyroidism, unspecified
CPT/HCPCS: 80053; 80061; 83036; 84443; 85025

== ENCOUNTER 2024-03-16 15:50 | Outpatient (CLI) | payer OTHER, MEDICAID, SELFPAY ==
[2024-02-22 15:59] VITALS: BP 136/98; BMI 43.1
[2024-03-16 17:27] LABS: Magnesium 1.8 mg/dL (1.7-2.3)
== END 2024-03-16 15:51 | disposition home or self-care (01) ==
LOC: LAB 15:51
PROVIDERS: PCP Nurse Practitioner Family; Visit Provider Clinical Nurse Specialist Adult Health
DX: I10 Essential (primary) hypertension (principal); E66.813 Obesity, class 3; E66.01 Morbid (severe) obesity due to excess calories; Z68.41 Body mass index [BMI] 40.0-44.9, adult
CPT/HCPCS: 36415; 83735

== ENCOUNTER → 2024-05-03 13:20 | Outpatient (BNVA) | payer OTHER, MEDICAID, SELFPAY ==
[2024-02-22 15:59] VITALS: BP 136/98; BMI 43.1
== END ==
PROVIDERS: PCP Nurse Practitioner Family; Visit Provider Podiatrist Foot & Ankle Surgery
DX: M79.671 Pain in right foot (principal); M79.672 Pain in left foot; E11.42 Type 2 diabetes mellitus with diabetic polyneuropathy; L60.3 Nail dystrophy; Q82.8 Other specified congenital malformations of skin; M21.41 Flat foot [pes planus] (acquired), right foot; M21.42 Flat foot [pes planus] (acquired), left foot; L60.8 Other nail disorders; M72.2 Plantar fascial fibromatosis
CPT/HCPCS: 73630

== ENCOUNTER → 2024-06-01 09:02 | Outpatient (BNVA) | payer OTHER, SELFPAY ==
[2024-02-22 15:59] VITALS: BP 136/98; BMI 43.1
== END ==
PROVIDERS: Family Provider Nurse Practitioner Family; PCP Nurse Practitioner Family; Visit Provider Nurse Practitioner Family
DX: R06.02 Shortness of breath (principal); J45.901 Unspecified asthma with (acute) exacerbation; R05.9 Cough, unspecified
CPT/HCPCS: 71046; 87400; 87426

== ENCOUNTER → 2024-06-25 10:24 | Outpatient (BNVA) | payer OTHER, MEDICAID, SELFPAY ==
[2024-02-22 15:59] VITALS: BP 136/98; BMI 43.1
== END ==
PROVIDERS: PCP Nurse Practitioner Family; Visit Provider Registered Nurse Neonatal Intensive Care
DX: Z20.822 Contact with and (suspected) exposure to COVID-19 (principal)
CPT/HCPCS: 87426

== ENCOUNTER → 2024-07-20 08:18 | Outpatient (BNVA) | payer OTHER, SELFPAY ==
[2024-02-22 15:59] VITALS: BP 136/98; BMI 43.1
== END ==
PROVIDERS: PCP Nurse Practitioner Family; Visit Provider Nurse Practitioner Family
DX: J82.83 Eosinophilic asthma (principal)
CPT/HCPCS: 85025

== ENCOUNTER 2024-10-04 15:09 | Outpatient (CLI) | payer OTHER, MEDICAID, SELFPAY ==
[2024-02-22 15:59] VITALS: BP 136/98; BMI 43.1
== END 2024-10-04 15:10 | disposition home or self-care (01) ==
LOC: SPT 15:09
PROVIDERS: PCP Nurse Practitioner Family; Visit Provider Podiatrist Foot & Ankle Surgery
DX: Z46.89 Encounter for fitting and adjustment of other specified devices (principal); M76.62 Achilles tendinitis, left leg
CPT/HCPCS: L4361

== ENCOUNTER → 2024-10-09 15:29 | Outpatient (BNVA) | payer OTHER, MEDICAID, SELFPAY ==
[2024-02-22 15:59] VITALS: BP 136/98; BMI 43.1
== END ==
PROVIDERS: PCP Nurse Practitioner Family; Visit Provider Nurse Practitioner Family
DX: E11.9 Type 2 diabetes mellitus without complications (principal)
CPT/HCPCS: 80053; 80061; 83036; 84443; 85025

== ENCOUNTER → 2025-01-31 12:05 | Outpatient (BNVA) | payer MEDICAID, SELFPAY ==
[2025-01-03 13:45] VITALS: BP 150/97; BMI 42.8
== END ==
PROVIDERS: PCP Nurse Practitioner Family; Visit Provider Nurse Practitioner Family
DX: E11.42 Type 2 diabetes mellitus with diabetic polyneuropathy (principal)
CPT/HCPCS: 80053; 80061; 83036; 84443; 85025

== ENCOUNTER → 2025-02-28 11:38 | Outpatient (BNVA) | payer MEDICAID, SELFPAY ==
[2025-02-06 09:43] VITALS: BP 122/78; BMI 40.3
== END ==
PROVIDERS: PCP Nurse Practitioner Family; Visit Provider Nurse Practitioner Family
DX: M79.645 Pain in left finger(s) (principal)
CPT/HCPCS: 73130